=== PATIENT | male | born 1975 | race Caucasian/White ===

== ENCOUNTER 2017-10-08 10:58 | Inpatient (IN) | payer OTHER ==
--- NOTE | 2017-10-08 13:08 | HP ---
COWS - Scale Resting Pulse: 1= [place] 81-100 Sweatin=Flushed/Facial Moisture Restless Observation: 3= Extraneous Movement Pupil Size: 2= Moderately Dilated Bone or Joint Aches: 2= Severe Diffuse Aches Runny Nose/ Eye Tearin= Runny Nose/Eyes GI Upset > 30mins: 3= Vomiting/Diarrhea Tremor Observation: 2= Slight Tremor Visible Yawning Observation: 2= >3x During Session Anxiety or Irritability: 2=Irritable/Anxious Goose Flesh Skin: 0=Smooth Skin COWS Score: 21 Admission ROS BHS - HPI Chief Complaint: i need help to stop using heroin Allergies/Adverse Reactions: Allergies Allergy/AdvReac Type Severity Reaction Status Date / Time No Known Allergies Allergy Verified 10/08/17 13:03 History of Present Illness: this 42 years old male with heroin and marijuana dependence,seeking detox,last detox 3years ago [place] nicotine dependence longest period of sobriety 10 months weight loss hypercholesterolemia - Ebola screening Have you traveled outside of the country in the last 21 days: No Have you had contact with anyone from an Ebola affected area: No Have you been sick,other than usual withdrawal symptoms: No Do you have a fever: No - Review of Systems Constitutional: Chills, Diaphoresis, Loss of Appetite, Malaise, Night Sweats, Changes in sleep, Weakness, Unintentional Wgt. Loss EENT: reports: Hearing Loss, Nose Congestion Respiratory: reports: No Symptoms reported Cardiac: reports: Palpitations GI: reports: Diarrhea, Nausea, Poor Fluid Intake, Vomiting : reports: No Symptoms Reported, Lesions Musculoskeletal: reports: No Symptoms Reported, Joint Pain, Muscle Pain Integumentary: reports: Dryness Neuro: reports: Headache, Tremors Endocrine: reports: No Symptoms Reported Hematology: reports: No Symptoms Reported Psychiatric: reports: Anxious (insomnia), Depressed Patient History - Patient Medical History Hx Anemia: No Hx Asthma: No Hx Chronic Obstructive Pulmonary Disease (COPD): No Hx Cancer: No Hx Cardiac Disorders: No Hx Congestive Heart Failure: No Hx Hypertension: No Hx Hypercholesterolemia: Yes (no med) Hx Pacemaker: No HX Cerebrovascular Accident: No Hx Seizures: No Hx Dementia: No Hx Diabetes: No Hx Gastrointestinal Disorders: No Hx Liver Disease: No Hx Genitourinary Disorders: No Hx Sexually Transmitted Disorders: No Hx Renal Disease (ESRD): No Hx Thyroid Disease: No Hx Human Immunodeficiency Virus (HIV): No (negative 2017) Hx Hepatitis C: No Hx Depression: No Hx Suicide Attempt: No Hx Bipolar Disorder: No Hx Schizophrenia: No Other Medical History: insomnia,no sucidal,no homicidal - Patient Surgical History Past Surgical History: No - PPD History Previous Implant?: Yes Implanted On Prior [facility] Admission?: No PPD to be Administered?: Yes - Smoking Cessation Smoking history: Current every day smoker Have you smoked in the past 12 months: Yes Aproximately how many cigarettes per day: 20 Hx Chewing Tobacco Use: No Initiated information on smoking cessation: Yes 'Breaking Loose' booklet given: 10/09/17 - Substance & Tx. History Hx Alcohol Use: No Hx Substance Use: Yes Substance Use Type: Heroin, Marijuana Hx Substance Use Treatment: Yes ([facility]) - Substances Abused Heroin Route: Injection Frequency: Daily Amount used: 10-20 BAGS Age of first use: 30 Date of Last Use: 10/07/17 Marijuana/Hashish Route: Smoking Frequency: Daily Amount used: 1 JOINT Age of first use: 14 Date of Last Use: 10/08/17 Family Disease History - Family Disease History Family History: Denies Admission Physical Exam S - Vital Signs Vital Signs: Vital Signs - 24 hr 10/08/17 12:36 Temperature 98 F Pulse Rate 83 Respiratory 20 Rate Blood Pressure 124/81 - Physical General Appearance: Yes: Moderate Distress, Tremorous, Irritable, Sweating, Anxious HEENTM: Yes: Normal ENT Inspection, TOM, Pharynx Normal Respiratory: Yes: Lungs Clear, Normal Breath Sounds, No Respiratory Distress Neck: Yes: Within Normal Limits, Supple, Trachea in good position Breast: Yes: Within Normal Limits Cardiology: Yes: Within Normal Limits, Regular Rhythm, Regular Rate, S1, S2 Abdominal: Yes: Within Normal Limits, Normal Bowel Sounds, Non Tender, Flat, Soft Genitourinary: Yes: Within Normal Limits Back: Yes: Within Normal Limits, Muscle Spasm Musculoskeletal: Yes: full range of Motion, Back pain, Joint Stiffness, Muscle Pain Extremities: Yes: Tremors, Inflammation Neurological: Yes: web weaver II-XII NML intact, Fully Oriented, Alert, Motor Strength 5/5 Integumentary: Yes: Dry, Track Finch (abscess both forearm) Lymphatic: Yes: Within Normal Limits - Diagnostic (1) Opioid dependence with withdrawal Current Visit: Yes Status: Acute (2) Cannabis dependence Current Visit: Yes Status: Acute (3) Abscess Current Visit: Yes Status: Acute (4) Anxiety and depression Current Visit: Yes Status: Acute (5) Nicotine dependence Current Visit: Yes Status: Acute Cleared for Admission [facility] - Detox or Rehab [facility] Level of Care: Medically Managed Detox Regimen/Protocol: Methadone [facility] Breath Alcohol Content Breath Alcohol Content: 0 Urine Drug Screen - Results Drug Screen Negative: No Urine Drug Screen Results: THC-Marijuana, OPI-Opiates
[2017-10-08] MEDS ORDERED: LOPERAMIDE HCL 2 MG CAPSULE PO PRN (13:18)
[2017-10-08] MEDS ORDERED: P-EPHED 60MG/TRIPROLIDI 2.5MG TABLET PO PRN (13:18)
[2017-10-08] MEDS ORDERED: MAG HYDROX/AL HYDROX/SIMETH 30 ML UNIT-DOSE CUP PO PRN (13:18)
[2017-10-08] MEDS ORDERED: MAGNESIUM HYDROX 2400MG/30ML ORAL SUSPENSION 30 ML CUP PO PRN (13:18)
[2017-10-08] MEDS ORDERED: NICOTINE POLACRILEX 2 MG GUM BUC PRN (13:18)
[2017-10-08] MEDS ORDERED: MAGNESIUM CITRATE 300 ML BOTTLE PO PRN (13:18)
[2017-10-08] MEDS ORDERED: MENTHOL/PHENOL 1 EACH UD MM PRN (13:18)
[2017-10-08] MEDS ORDERED: guaiFENesin/D-METHORPHAN HB 10 ML UNIT-DOSE CUPS PO PRN (13:18)
[2017-10-08] MEDS ORDERED: ACETAMINOPHEN 325 MG TABLET (FP) PO PRN (13:18)
[2017-10-08] MEDS ORDERED: METHADONE HCL 10 MG TABLET (FOR DETOX USE ONLY) PO ONE ×2 (14:10→23:00)
[2017-10-08] MEDS: NICOTINE 21 MG/24 HOURS TOPICAL PATCH TD SCH (15:25)
[2017-10-08] MEDS: diazePAM 5 MG TABLET PO PRN ×2 (15:25→22:13)
[2017-10-08] MEDS: cloNIDine HCL 0.1 MG TABLET PO SCH ×2 (15:25→22:13)
[2017-10-08 16:17] VITALS: BMI 29.5
[2017-10-08 17:00] LABS: URINE APPEARANCE CLEAR; URINE BILIRUBIN NEGATIVE (NEGATIVE); URINE BLOOD NEGATIVE (NEGATIVE); URINE COLOR YELLOW; URINE GLUCOSE (UA) NEGATIVE (NEGATIVE); URINE KETONE NEGATIVE (NEGATIVE); URINE LEUK ESTERASE NEGATIVE (NEGATIVE); URINE NITRITE NEGATIVE (NEGATIVE); URINE PROTEIN NEGATIVE (NEGATIVE); URINE UROBILINOGEN NEGATIVE mg/dL (0.2-1.0)
--- NOTE | 2017-10-08 17:45 | PN ---
S Progress Note Note: Psychiatric nurse practitioner: Correctional Maintenance Technician approached patient for psychiatric consultation. Pt. refused.
[2017-10-08] MEDS: CEPHALEXIN MONOHYDRATE 500 MG CAPSULE (UD) PO SCH (18:02)
[2017-10-08] MEDS: CYCLOBENZAPRINE HCL 10 MG TABLET (FP) PO PRN (22:13)
[2017-10-08] MEDS: THIAMINE HCL 100 MG TABLET (FP) PO SCH (22:13)
[2017-10-09] MEDS: CEPHALEXIN MONOHYDRATE 500 MG CAPSULE (UD) PO SCH ×5 (00:05→23:48)
[2017-10-09] MEDS: diazePAM 5 MG TABLET PO PRN ×4 (05:54→22:36)
[2017-10-09] MEDS: CYCLOBENZAPRINE HCL 10 MG TABLET (FP) PO PRN (05:54)
[2017-10-09] MEDS ORDERED: METHADONE HCL 10 MG TABLET (FOR DETOX USE ONLY) PO ONE (10:00)
[2017-10-09] MEDS: PRENATAL VITAMINS W/ FOLIC ACID TABLET (FP) PO SCH (10:15)
[2017-10-09] MEDS: NICOTINE 21 MG/24 HOURS TOPICAL PATCH TD SCH (10:15)
[2017-10-09] MEDS: cloNIDine HCL 0.1 MG TABLET PO SCH ×2 (10:17→22:35)
--- NOTE | 2017-10-09 11:12 | PN ---
BHS COWS - Scale Resting Pulse: 1= [place] 81-100 Sweatin= Chills/Flushing Restless Observation: 3= Extraneous Movement Pupil Size: 1= Pupils >than Normal Bone or Joint Aches: 2= Severe Diffuse Aches Runny Nose/ Eye Tearin= Runny Nose/Eyes GI Upset > 30mins: 3= Vomiting/Diarrhea Tremor Observation of Outstretched Hands: 2= Slight Tremor Visible Yawning Observation: 1= 1-2x During Session Anxiety or Irritability: 2=Irritable/Anxious Goose Flesh Skin: 0=Smooth Skin COWS Score: 18 BHS Progress Note (SOAP) Subjective: ALERT,IRRITABLE,ANXIOUS,INTERRUPTED SLEEP,TREMOR,PAIN IN THE BODY,JOINT AND BACK Objective: 10/09/17 11:10 Vital Signs Temperature 97.7 F 10/09/17 10:14 Pulse Rate 85 10/09/17 10:14 Respiratory Rate 18 10/09/17 10:14 Blood Pressure 141/86 10/09/17 10:14 O2 Sat by Pulse Oximetry (%) EKG NSR NO CHEST PAIN,NO SOB,NO DIZZINESS 10/09/17 11:11 Laboratory Last Values Urine Color Yellow 10/08/17 14:40 Urine Appearance Clear 10/08/17 14:40 Urine pH 5.0 (5.0-8.0) 10/08/17 14:40 Ur Specific [place] 1.019 (1.001-1.035) 10/08/17 14:40 Urine Protein Negative (NEGATIVE) 10/08/17 14:40 Urine Glucose (UA) Negative (NEGATIVE) 10/08/17 14:40 Urine Ketones Negative (NEGATIVE) 10/08/17 14:40 Urine Blood Negative (NEGATIVE) 10/08/17 14:40 Urine Nitrite Negative (NEGATIVE) 10/08/17 14:40 Urine Bilirubin Negative (NEGATIVE) 10/08/17 14:40 Urine Urobilinogen Negative mg/dL (0.2-1.0) 10/08/17 14:40 Ur Leukocyte Esterase Negative (NEGATIVE) 10/08/17 14:40 10/09/17 11:12 LABS PENDING Assessment: 10/09/17 11:12 WITHDRAWAL SYMPTOM Plan: CONTINUE DETOX
--- NOTE | 2017-10-09 13:38 | CONSULT ---
[facility] Psychiatric Consult - Data Date of interview: 10/09/17 Admission source: [facility] Identifying data: Patient approached at bedside for psychiatric interview.Mr Thapa REFUSED.Nursing staff is made aware.
--- NOTE | 2017-10-09 13:40 | EKG ---
Test Reason : Blood Pressure : / mmHG Vent. Rate : 069 BPM Atrial Rate : 069 BPM P-R Int : 134 ms QRS Dur : 122 ms QT Int : 396 ms P-R-T Axes : 060 036 022 degrees QTc Int : 424 ms NORMAL SINUS RHYTHM RIGHT BUNDLE BRANCH BLOCK ABNORMAL ECG NO PREVIOUS ECGS AVAILABLE Confirmed by TASHA AWAD MD ([id number]) on 10/09/2017 1:39:45 PM Referred By: Confirmed By:TASHA AWAD MD
[2017-10-09] MEDS: THIAMINE HCL 100 MG TABLET (FP) PO SCH (22:35)
[2017-10-10] MEDS: CEPHALEXIN MONOHYDRATE 500 MG CAPSULE (UD) PO SCH ×4 (07:00→23:34)
[2017-10-10] MEDS ORDERED: METHADONE HCL 5 MG TABLET (FOR DETOX USE ONLY) PO ONE (10:00)
[2017-10-10] MEDS: cloNIDine HCL 0.1 MG TABLET PO SCH ×2 (10:39→22:34)
[2017-10-10] MEDS: PRENATAL VITAMINS W/ FOLIC ACID TABLET (FP) PO SCH (10:39)
[2017-10-10] MEDS: NICOTINE 21 MG/24 HOURS TOPICAL PATCH TD SCH (10:39)
[2017-10-10] MEDS: diazePAM 5 MG TABLET PO PRN ×3 (10:39→22:34)
--- NOTE | 2017-10-10 11:34 | PN ---
BHS COWS - Scale Resting Pulse: 1= [place] 81-100 Sweatin= Chills/Flushing Restless Observation: 1= Difficult to Sit Still Pupil Size: 0= Normal to Room Light Bone or Joint Aches: 2= Severe Diffuse Aches Runny Nose/ Eye Tearin= Nasal Congestion GI Upset > 30mins: 1= Stomach Cramp Tremor Observation of Outstretched Hands: 1= Tremor [place], Not Seen Yawning Observation: 2= >3x During Session Anxiety or Irritability: 1=Feels Anxious/Irritable Goose Flesh Skin: 0=Smooth Skin COWS Score: 11 BHS Progress Note (SOAP) Subjective: restlessness sweating agitation patient agrees to have blood work done tomorrow morning Objective: 10/10/17 11:32 Vital Signs Temperature 96.6 F L 10/10/17 10:00 Pulse Rate 84 10/10/17 10:00 Respiratory Rate 20 10/10/17 10:00 Blood Pressure 117/84 10/10/17 10:00 O2 Sat by Pulse Oximetry (%) Laboratory Last Values Urine Color Yellow 10/08/17 14:40 Urine Appearance Clear 10/08/17 14:40 Urine pH 5.0 (5.0-8.0) 10/08/17 14:40 Ur Specific [place] 1.019 (1.001-1.035) 10/08/17 14:40 Urine Protein Negative (NEGATIVE) 10/08/17 14:40 Urine Glucose (UA) Negative (NEGATIVE) 10/08/17 14:40 Urine Ketones Negative (NEGATIVE) 10/08/17 14:40 Urine Blood Negative (NEGATIVE) 10/08/17 14:40 Urine Nitrite Negative (NEGATIVE) 10/08/17 14:40 Urine Bilirubin Negative (NEGATIVE) 10/08/17 14:40 Urine Urobilinogen Negative mg/dL (0.2-1.0) 10/08/17 14:40 Ur Leukocyte Esterase Negative (NEGATIVE) 10/08/17 14:40 lab noted Assessment: 10/10/17 11:33 withdrawal sx +PPD Plan: continue detox chest x ray
[2017-10-10] MEDS: CYCLOBENZAPRINE HCL 10 MG TABLET (FP) PO PRN (17:38)
[2017-10-10] MEDS: THIAMINE HCL 100 MG TABLET (FP) PO SCH (22:34)
[2017-10-11] MEDS: CEPHALEXIN MONOHYDRATE 500 MG CAPSULE (UD) PO SCH ×3 (06:59→18:36)
[2017-10-11] MEDS: diazePAM 5 MG TABLET PO PRN ×2 (07:00→11:04)
[2017-10-11] MEDS ORDERED: METHADONE HCL 5 MG TABLET (FOR DETOX USE ONLY) PO ONE (10:00)
[2017-10-11] MEDS: PRENATAL VITAMINS W/ FOLIC ACID TABLET (FP) PO SCH (10:12)
[2017-10-11] MEDS: cloNIDine HCL 0.1 MG TABLET PO SCH ×2 (10:13→22:19)
[2017-10-11] MEDS: NICOTINE 21 MG/24 HOURS TOPICAL PATCH TD SCH (10:14)
--- NOTE | 2017-10-11 10:16 | PN ---
BHS Progress Note (SOAP) Subjective: ALERT,IRRITABLE,ANXIOUS,INTERRUPTED SLEEP,TREMOR,PAIN IN THE BODY AND BACK Objective: 10/11/17 10:15 Vital Signs Temperature 97.5 F L 10/11/17 06:06 Pulse Rate 63 10/11/17 06:06 Respiratory Rate 16 10/11/17 06:06 Blood Pressure 126/60 10/11/17 06:06 O2 Sat by Pulse Oximetry (%) PATIENT REFUSED BLOOD TESTS Assessment: 10/11/17 10:15 WITHDRAWAL SYMPTOM Plan: CONTINUE DETOX
[2017-10-11] MEDS: CYCLOBENZAPRINE HCL 10 MG TABLET (FP) PO PRN ×2 (10:41→18:54)
[2017-10-11] MEDS ORDERED: LIDOCAINE 5% TOPICAL PATCH TP ONE (11:00)
[2017-10-11] MEDS: hydrOXYzine PAMOATE 50 MG CAPSULE (FP) PO PRN ×2 (18:36→22:20)
[2017-10-11] MEDS: IBUPROFEN 400 MG TABLET (FP) PO PRN (18:54)
[2017-10-11] MEDS: THIAMINE HCL 100 MG TABLET (FP) PO SCH (22:19)
[2017-10-11] MEDS: LIDOCAINE PATCH REMOVAL MC SCH (22:54)
[2017-10-12] MEDS: CEPHALEXIN MONOHYDRATE 500 MG CAPSULE (UD) PO SCH ×5 (00:08→23:52)
[2017-10-12] MEDS: CYCLOBENZAPRINE HCL 10 MG TABLET (FP) PO PRN ×2 (06:10→22:22)
[2017-10-12] MEDS: IBUPROFEN 400 MG TABLET (FP) PO PRN ×3 (06:10→17:57)
[2017-10-12] MEDS: hydrOXYzine PAMOATE 50 MG CAPSULE (FP) PO PRN ×4 (06:10→22:23)
[2017-10-12] MEDS ORDERED: METHADONE HCL 10 MG TABLET (FOR DETOX USE ONLY) PO ONE (10:00)
--- NOTE | 2017-10-12 10:28 | PN ---
BHS Progress Note (SOAP) Subjective: ALERT,IRRITABLE,ANXIOUS,INTERRUPTED SLEEP,PAIN IN THE BODY Objective: 10/12/17 10:27 Vital Signs Temperature 97.5 F L 10/12/17 10:00 Pulse Rate 80 10/12/17 10:00 Respiratory Rate 18 10/12/17 10:00 Blood Pressure 117/67 10/12/17 10:00 O2 Sat by Pulse Oximetry (%) Assessment: 10/12/17 10:27 WITHDRAWAL SYMPTOM Plan: CONTINUE DETOX,DISCHARGE IN AM
[2017-10-12] MEDS: NICOTINE 21 MG/24 HOURS TOPICAL PATCH TD SCH (10:46)
[2017-10-12] MEDS: LIDOCAINE 5% TOPICAL PATCH TP SCH (10:46)
[2017-10-12] MEDS: cloNIDine HCL 0.1 MG TABLET PO SCH ×2 (10:46→22:22)
[2017-10-12] MEDS: PRENATAL VITAMINS W/ FOLIC ACID TABLET (FP) PO SCH (10:46)
[2017-10-12] MEDS: THIAMINE HCL 100 MG TABLET (FP) PO SCH (22:23)
[2017-10-12] MEDS: LIDOCAINE PATCH REMOVAL MC SCH (22:24)
[2017-10-13] MEDS: CEPHALEXIN MONOHYDRATE 500 MG CAPSULE (UD) PO SCH (05:29)
[2017-10-13] MEDS: hydrOXYzine PAMOATE 50 MG CAPSULE (FP) PO PRN (05:31)
[2017-10-13] MEDS ORDERED: METHADONE HCL 5 MG TABLET (FOR DETOX USE ONLY) PO ONE (06:00)
[2017-10-13 06:26] VITALS: BP 114/53; PULSE 67; TEMP 97.3
--- NOTE | 2017-10-13 08:40 | DS ---
[facility] Detox Discharge Summary Admission Date: 10/08/17 Discharge Date: 10/13/17 - History Present History: Cannabis Dependence, Opioid Dependence Additional Comments: follow up with after care program as arrangement Pertinent Past History: nicotine dependence abscess both forearm anxiety and depression - Physical Exam Results Vital Signs: Vital Signs Temperature 97.3 F L 10/13/17 06:25 Pulse Rate 67 10/13/17 06:25 Respiratory Rate 16 10/13/17 06:25 Blood Pressure 114/53 10/13/17 06:25 O2 Sat by Pulse Oximetry (%) Pertinent Admission Physical Exam Findings: withdrawal symptom - Treatment Hospital Course: Detox Protocol Followed, Detoxed Safely, Responded well, Discharged Condition Good Patient has Accepted a Rehab Referral to: declined - Medication Discharge Medications: Ambulatory Orders NK [No Known Home Medication] 10/08/17 - Diagnosis (1) Opioid dependence with withdrawal Current Visit: Yes Status: Acute (2) Cannabis dependence Current Visit: Yes Status: Acute (3) Abscess Current Visit: Yes Status: Acute (4) Anxiety and depression Current Visit: Yes Status: Acute (5) Nicotine dependence Current Visit: Yes Status: Acute - AMA Did Patient Leave Against Medical Advice: No
[2017-10-13] MEDS: PRENATAL VITAMINS W/ FOLIC ACID TABLET (FP) PO SCH (09:04)
[2017-10-13] MEDS: cloNIDine HCL 0.1 MG TABLET PO SCH (09:05)
[2017-10-13] MEDS: LIDOCAINE 5% TOPICAL PATCH TP SCH (09:05)
== END 2017-10-13 09:20 | disposition home or self-care (01) | DRG 773 ==
LOC: YASAS 10:58 → Y6N 13:21
PROVIDERS: ADMIT Internal Medicine; ATTEND Internal Medicine
PROC: HZ2ZZZZ Detoxification Services for Substance Abuse Treatment (ICD-10-PCS; principal; 2017-10-08)
DX: F11.23 Opioid dependence with withdrawal (principal); F12.20 Cannabis dependence, uncomplicated; F17.210 Nicotine dependence, cigarettes, uncomplicated; F41.8 Other specified anxiety disorders; L03.114 Cellulitis of left upper limb; L03.113 Cellulitis of right upper limb
CPT/HCPCS: 81003; 93005; 93010

== ENCOUNTER 2017-11-16 08:37 | Inpatient (IN) | payer OTHER ==
[2017-11-16 10:14] VITALS: BMI 29.9
--- NOTE | 2017-11-16 11:33 | HP ---
Admission [facility] Chief Complaint: I know I need help so I am here for further treatment. Allergies/Adverse Reactions: Allergies Allergy/AdvReac Type Severity Reaction Status Date / Time No Known Allergies Allergy Verified 11/16/17 11:23 History of Present Illness: Pt is a 42yr old male with a history of heroin dependence seeking treatment however pt is negative for heroin but has agreed to go to rehab for further treatment. Pt is not in any withdrawals. Exam Limitations: No Limitations - Ebola screening Have you traveled outside of the country in the last 21 days: No (N) Have you had contact with anyone from an Ebola affected area: No Have you been sick,other than usual withdrawal symptoms: No Do you have a fever: No - Review of Systems Constitutional: No Symptoms Reported EENT: reports: No Symptoms Reported Respiratory: reports: No Symptoms reported Cardiac: reports: Syncope GI: reports: Constipated, Nausea, Abdominal cramping : reports: No Symptoms Reported Musculoskeletal: reports: Back Pain Integumentary: reports: No Symptoms Reported Neuro: reports: Tingling, Tremors Endocrine: reports: Excessive Sweating, Flushing, Intolerance to Cold, Intolerance to Heat Hematology: reports: No Symptoms Reported Psychiatric: reports: Judgement Intact, Mood/Affect Appropiate, Orientated x3, Agitated, Anxious Other Systems: Reviewed and Negative Patient History - Patient Medical History Hx Anemia: No Hx Asthma: No Hx Chronic Obstructive Pulmonary Disease (COPD): No Hx Cancer: No Hx Cardiac Disorders: No Hx Congestive Heart Failure: No Hx Hypertension: No Hx Hypercholesterolemia: Yes (no med) Hx Pacemaker: No HX Cerebrovascular Accident: No Hx Seizures: No Hx Dementia: No Hx Diabetes: No Hx Gastrointestinal Disorders: No Hx Liver Disease: No Hx Genitourinary Disorders: No Hx Sexually Transmitted Disorders: No Hx Renal Disease (ESRD): No Hx Thyroid Disease: No Hx Human Immunodeficiency Virus (HIV): No (negative 2017) Hx Hepatitis C: No (negative) Hx Depression: No Hx Suicide Attempt: No (denies) Hx Bipolar Disorder: No Hx Schizophrenia: No Other Medical History: anxiety - Patient Surgical History Past Surgical History: No - PPD History Previous Implant?: Yes Date: 10/10/17 PPD to be Administered?: No - Reproductive History Patient is a Female of Child Bearing Age (11 -55 yrs old): No - Smoking Cessation Smoking history: Current every day smoker Have you smoked in the past 12 months: Yes Aproximately how many cigarettes per day: 20 Hx Chewing Tobacco Use: No Initiated information on smoking cessation: Yes 'Breaking Loose' booklet given: 11/16/17 - Substance & Tx. History Hx Alcohol Use: No Hx Substance Use: Yes Hx Substance Use Treatment: Yes ([facility] 1 month ago) Family Disease History - Family Disease History Family Disease History: Heart Disease: Father, [place]: Mother (), Brother ( ) Admission Physical Exam [facility] - Vital Signs Vital Signs: Vital Signs - 24 hr 11/16/17 10:11 Temperature 97.5 F L Pulse Rate 110 H Respiratory 20 Rate Blood Pressure 127/76 - Physical General Appearance: Yes: Within Normal Limits, Appropriately Dressed, Moderate Distress, Sweating, Anxious HEENTM: Yes: Normal Voice Respiratory: Yes: Lungs Clear, Normal Breath Sounds, No Respiratory Distress Neck: Yes: No masses,lesions,Nodules Breast: Yes: Within Normal Limits Cardiology: Yes: Regular Rhythm, Regular Rate, S1, S2 Abdominal: Yes: Normal Bowel Sounds Genitourinary: Yes: Within Normal Limits Back: Yes: Normal Inspection Musculoskeletal: Yes: full range of Motion Extremities: Yes: Normal Capillary Refill, Normal Inspection, Tremors Neurological: Yes: Fully Oriented, Alert, Normal Response Integumentary: Yes: Normal Color, Track Finch Lymphatic: Yes: Within Normal Limits - Diagnostic (1) Anxiety and depression Current Visit: Yes Status: Chronic (2) Cannabis dependence Current Visit: Yes Status: Chronic (3) Nicotine dependence Current Visit: Yes Status: Acute Qualifiers: Nicotine product type: cigarettes Substance use status: uncomplicated Qualified Code(s): F17.210 - Nicotine dependence, cigarettes, uncomplicated Cleared for Admission [facility] - Detox or Rehab [facility] Level of Care: Medically Managed [facility] Breath Alcohol Content Breath Alcohol Content: 0 Urine Drug Screen - Results Drug Screen Negative: No Urine Drug Screen Results: THC-Marijuana, BZO-Benzodiazepines Inpatient Rehab Admission - Initial Determination Free of communicable disease: Yes - Rehab Admission Criteria Previous failed treatment: Yes Poor recovery environment: Yes Lacks judgement: Yes
[2017-11-16] MEDS ORDERED: P-EPHED 60MG/TRIPROLIDI 2.5MG TABLET PO PRN (11:47)
[2017-11-16] MEDS ORDERED: MAGNESIUM HYDROX 2400MG/30ML ORAL SUSPENSION 30 ML CUP PO PRN (11:47)
[2017-11-16] MEDS ORDERED: guaiFENesin/D-METHORPHAN HB 10 ML UNIT-DOSE CUPS PO PRN (11:47)
[2017-11-16] MEDS ORDERED: ACETAMINOPHEN 325 MG TABLET (FP) PO PRN (11:47)
[2017-11-16] MEDS ORDERED: MAG HYDROX/AL HYDROX/SIMETH 30 ML UNIT-DOSE CUP PO PRN (11:47)
[2017-11-16] MEDS ORDERED: MAGNESIUM CITRATE 300 ML BOTTLE PO PRN (11:47)
[2017-11-16] MEDS ORDERED: LOPERAMIDE HCL 2 MG CAPSULE PO PRN (11:47)
[2017-11-16] MEDS ORDERED: IBUPROFEN 400 MG TABLET (FP) PO PRN (11:47)
[2017-11-16] MEDS ORDERED: MENTHOL/PHENOL 1 EACH UD MM PRN (11:47)
[2017-11-16] MEDS ORDERED: NICOTINE POLACRILEX 4 MG GUM BUC PRN (11:47)
[2017-11-16] MEDS ORDERED: CYCLOBENZAPRINE HCL 10 MG TABLET (FP) PO PRN (11:54)
[2017-11-16 14:41] LABS: MCH 28.2 pg (25.7-33.7); MCHC 33.3 g/dl (32.0-35.9); MEAN CELL VOLUME 84.8 fl (80-96); MEAN PLT VOLUME 8.5 fl (7.5-11.1); PLATELET COUNT 295 K/MM3 (134-434); RBC 5.31 M/mm3 (4.00-5.60); RDW 14.7 % (11.9-15.9); WHITE BLOOD COUNT 20.6 K/mm3 (4.0-10.0)
[2017-11-16 14:59] LABS: CHLORIDE 99 mmol/L (98-107); SODIUM 133 mmol/L (136-145)
[2017-11-16 15:14] LABS: ALK PHOS 76 U/L (45-117); ANION GAP 10 (8-16); BILIRUBIN,TOTAL 1.6 mg/dL (0.2-1.0); BLOOD UREA NITROGEN 28 mg/dL (7-18); CALCIUM 8.6 mg/dL (8.5-10.1); CO2 24 mmol/L (21-32); CREATININE 2.3 mg/dL (0.7-1.3); GLUCOSE,RANDOM 128 mg/dL (74-106); SGOT/AST 15 U/L (15-37); SGPT/ALT 23 U/L (12-78); TOT PROT 7.2 g/dl (6.4-8.2)
--- NOTE | 2017-11-16 15:35 | PN ---
[facility] Progress Note Note: Laboratory Tests 11/16/17 11/16/17 12:00 12:00 WBC 20.6 H RBC 5.31 Hgb 15.0 Hct 45.0 MCV 84.8 MCH 28.2 MCHC 33.3 RDW 14.7 Plt Count 295 MPV 8.5 Sodium 133 L Potassium 4.0 Chloride 99 Carbon Dioxide 24 Anion Gap 10 BUN 28 H Creatinine 2.3 H Creat Clearance w eGFR 31.49 Random Glucose 128 H Calcium 8.6 Total Bilirubin 1.6 H AST 15 ALT 23 Alkaline Phosphatase 76 Total Protein 7.2 Albumin 4.0 RN phoned regarding pt current labs; 20.6 wbc and increased bun and creatine. pt appears asymptomatic. there are no previous labs to compare because pt refused labs on his previous admission. therefore will reorder labs for tomorrow.
[2017-11-16] MEDS: THIAMINE HCL 100 MG TABLET (FP) PO SCH (21:50)
[2017-11-16 23:42] LABS: URINE APPEARANCE SLCLOUDY; URINE BILIRUBIN NEGATIVE (NEGATIVE); URINE BLOOD NEGATIVE (NEGATIVE); URINE COLOR YELLOW; URINE GLUCOSE (UA) NEGATIVE (NEGATIVE); URINE KETONE NEGATIVE (NEGATIVE); URINE LEUK ESTERASE TRACE (NEGATIVE); URINE NITRITE NEGATIVE (NEGATIVE); URINE PROTEIN 2+ (NEGATIVE); URINE UROBILINOGEN NEGATIVE mg/dL (0.2-1.0)
[2017-11-16 23:45] LABS: EPI CELLS RARE /HPF (FEW); URINE BACTERIA FEW /hpf (NONE SEEN); URINE HYALINE CAST 17 /lpf; URINE MUCUS RARE
[2017-11-17 09:59] LABS: BASO % 0.6 % (0-2.0); EOS % 1.4 % (0-4.5); HEMATOCRIT 43.8 % (35.4-49); HEMOGLOBIN 14.7 GM/dL (11.7-16.9); LYMPH % 27.2 % (8-40); MCH 28.2 pg (25.7-33.7); MCHC 33.5 g/dl (32.0-35.9); MEAN CELL VOLUME 84.2 fl (80-96); MEAN PLT VOLUME 8.3 fl (7.5-11.1); MONO % 9.3 % (3.8-10.2); NEUT % 61.5 % (42.8-82.8); PLATELET COUNT 254 K/MM3 (134-434); RDW 14.9 % (11.9-15.9); WHITE BLOOD COUNT 9.6 K/mm3 (4.0-10.0)
[2017-11-17 10:35] LABS: CHLORIDE 106 mmol/L (98-107); POTASSIUM 4.2 mmol/L (3.5-5.1); SGOT/AST 12 U/L (15-37); SGPT/ALT 18 U/L (12-78); SODIUM 138 mmol/L (136-145)
[2017-11-17 10:39] LABS: ALBUMIN 3.5 g/dl (3.4-5.0); ALK PHOS 64 U/L (45-117); ANION GAP 6 (8-16); BILIRUBIN,TOTAL 0.6 mg/dL (0.2-1.0); BLOOD UREA NITROGEN 18 mg/dL (7-18); CALCIUM 8.5 mg/dL (8.5-10.1); CO2 26 mmol/L (21-32); CREATININE 1.1 mg/dL (0.7-1.3); GLUCOSE,RANDOM 113 mg/dL (74-106); TOT PROT 6.5 g/dl (6.4-8.2)
[2017-11-17] MEDS: PRENATAL VITAMINS W/ FOLIC ACID TABLET (FP) PO SCH (11:00)
[2017-11-17] MEDS: NICOTINE 21 MG/24 HOURS TOPICAL PATCH TD SCH (11:00)
--- NOTE | 2017-11-17 11:01 | EKG ---
Test Reason : Blood Pressure : / mmHG Vent. Rate : 075 BPM Atrial Rate : 075 BPM P-R Int : 142 ms QRS Dur : 126 ms QT Int : 400 ms P-R-T Axes : 068 015 030 degrees QTc Int : 446 ms NORMAL SINUS RHYTHM RIGHT BUNDLE BRANCH BLOCK ABNORMAL ECG WHEN COMPARED WITH ECG OF 08-OCT-2017 15:13, NO SIGNIFICANT CHANGE WAS FOUND Confirmed by RENE MOSQUERA MD ([id number]) on 11/17/2017 11:00:55 AM Referred By: Confirmed By:RENE MOSQUERA MD
--- NOTE | 2017-11-17 13:02 | PN ---
S Progress Note Note: The story writer twice went to the patient room and asked to come to the office for evaluation, patient was in bed covered by blanket reports he does not feel well and asked to see him tomorrow.
[2017-11-17] MEDS: THIAMINE HCL 100 MG TABLET (FP) PO SCH (21:38)
[2017-11-18] MEDS ORDERED: ONDANSETRON *ODT* 4 MG TABLET SL PRN (09:39)
--- NOTE | 2017-11-18 09:42 | PN ---
BHS Progress Note (SOAP) Subjective: pateitn c/o protoracted opioid withdrawal sx , was not detoxed on admission as u tox - issac opioids, now yawning, eyes, tearing, insomnia, anxiety, loss of appeite, requesting to start Mat w suboxone Objective: 11/18/17 09:40 Vital Signs - 24 hr 11/18/17 11/18/17 11/18/17 00:30 03:30 07:10 Temperature 98.2 F Pulse Rate 65 Respiratory 18 18 16 Rate Blood Pressure 148/97 Laboratory Tests 11/16/17 11/16/17 11/16/17 12:00 12:00 12:00 WBC 20.6 H RBC 5.31 Hgb 15.0 Hct 45.0 MCV 84.8 MCH 28.2 MCHC 33.3 RDW 14.7 Plt Count 295 MPV 8.5 Total Counted 100 Neutrophils % Neutrophils % (Manual) 74.0 Lymphocytes % Lymphocytes % (Manual) 16.0 Monocytes % Monocytes % (Manual) 7 Eosinophils % Eosinophils % (Manual) 1.0 Basophils % Sodium 133 L Potassium 4.0 Chloride 99 Carbon Dioxide 24 Anion Gap 10 BUN 28 H Creatinine 2.3 H Creat Clearance w eGFR 31.49 Random Glucose 128 H Calcium 8.6 Total Bilirubin 1.6 H AST 15 ALT 23 Alkaline Phosphatase 76 Total Protein 7.2 Albumin 4.0 Urine Color Urine Appearance Urine pH Ur Specific [place] Urine Protein Urine Glucose (UA) Urine Ketones Urine Blood Urine Nitrite Urine Bilirubin Urine Urobilinogen Ur Leukocyte Esterase Urine WBC (Auto) Urine RBC (Auto) Ur Epithelial Cells Urine Bacteria Hyaline Casts Urine Mucus RPR Titer Nonreactive 11/16/17 11/17/17 11/17/17 20:21 07:30 07:30 WBC 9.6 D RBC 5.20 Hgb 14.7 Hct 43.8 MCV 84.2 MCH 28.2 MCHC 33.5 RDW 14.9 Plt Count 254 MPV 8.3 Total Counted Neutrophils % 61.5 Neutrophils % (Manual) Lymphocytes % 27.2 Lymphocytes % (Manual) Monocytes % 9.3 Monocytes % (Manual) Eosinophils % 1.4 Eosinophils % (Manual) Basophils % 0.6 Sodium 138 Potassium 4.2 Chloride 106 Carbon Dioxide 26 Anion Gap 6 L BUN 18 D Creatinine 1.1 D Creat Clearance w eGFR > 60 Random Glucose 113 H Calcium 8.5 Total Bilirubin 0.6 D AST 12 L ALT 18 D Alkaline Phosphatase 64 Total Protein 6.5 Albumin 3.5 Urine Color Yellow Urine Appearance Slcloudy Urine pH 5.0 Ur Specific [place] 1.023 Urine Protein 2+ H Urine Glucose (UA) Negative Urine Ketones Negative Urine Blood Negative Urine Nitrite Negative Urine Bilirubin Negative Urine Urobilinogen Negative Ur Leukocyte Esterase Trace Urine WBC (Auto) 8 Urine RBC (Auto) 3 Ur Epithelial Cells Rare Urine Bacteria Few Hyaline Casts 17 Urine Mucus Rare RPR Titer yawning, tearing, opioid withdrawal sx noted Assessment: 11/18/17 09:41 oud w withdrqwal sx - start mat w subxoen 2mg and symptomtic relief, when aftercare progrram idenitified and appt mad will titrate dose to effect to eliminate cravings. control bp
[2017-11-18] MEDS ORDERED: cloNIDine HCL 0.1 MG TABLET PO ONE (10:00)
[2017-11-18] MEDS: PANTOPRAZOLE 40 MG TABLET (FP) PO SCH (10:42)
[2017-11-18] MEDS: PRENATAL VITAMINS W/ FOLIC ACID TABLET (FP) PO SCH (10:42)
[2017-11-18] MEDS: NAPROXEN 500 MG TABLET (FP) PO SCH ×2 (10:42→21:55)
[2017-11-18] MEDS: BUPRENORPHINE/NALOXONE 2 MG/0.5 MG FILM PACKET SL SCH (10:42)
[2017-11-18] MEDS: cloNIDine HCL 0.1 MG TABLET PO SCH ×2 (10:43→21:55)
[2017-11-18] MEDS: NICOTINE 21 MG/24 HOURS TOPICAL PATCH TD SCH (10:43)
[2017-11-18] MEDS ORDERED: ONDANSETRON *ODT* 4 MG TABLET SL ONE (10:45)
[2017-11-18] MEDS: hydrOXYzine PAMOATE 50 MG CAPSULE (FP) PO PRN (10:51)
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
[2017-11-18] MEDS: GABAPENTIN 100 MG CAPSULE (FP) PO SCH ×2 (13:58→21:55)
[2017-11-18] MEDS: SUVOREXANT 10 MG TABLET PO SCH (21:55)
[2017-11-18] MEDS: THIAMINE HCL 100 MG TABLET (FP) PO SCH (21:55)
[2017-11-19] MEDS: GABAPENTIN 100 MG CAPSULE (FP) PO SCH ×3 (06:13→21:42)
[2017-11-19] MEDS: PRENATAL VITAMINS W/ FOLIC ACID TABLET (FP) PO SCH (10:21)
[2017-11-19] MEDS: cloNIDine HCL 0.1 MG TABLET PO SCH ×2 (10:21→21:42)
[2017-11-19] MEDS: BUPRENORPHINE/NALOXONE 2 MG/0.5 MG FILM PACKET SL SCH (10:21)
[2017-11-19] MEDS: PANTOPRAZOLE 40 MG TABLET (FP) PO SCH (10:21)
[2017-11-19] MEDS: NICOTINE 21 MG/24 HOURS TOPICAL PATCH TD SCH (10:21)
[2017-11-19] MEDS: hydrOXYzine PAMOATE 50 MG CAPSULE (FP) PO PRN (10:21)
[2017-11-19] MEDS: NAPROXEN 500 MG TABLET (FP) PO SCH ×2 (10:21→21:42)
[2017-11-19] MEDS: SUVOREXANT 10 MG TABLET PO SCH (21:42)
[2017-11-19] MEDS: THIAMINE HCL 100 MG TABLET (FP) PO SCH (21:42)
[2017-11-20] MEDS: GABAPENTIN 100 MG CAPSULE (FP) PO SCH ×3 (06:47→21:32)
[2017-11-20] MEDS: NAPROXEN 500 MG TABLET (FP) PO SCH ×2 (10:33→21:32)
[2017-11-20] MEDS: cloNIDine HCL 0.1 MG TABLET PO SCH ×2 (10:33→21:32)
[2017-11-20] MEDS: PANTOPRAZOLE 40 MG TABLET (FP) PO SCH (10:33)
[2017-11-20] MEDS: PRENATAL VITAMINS W/ FOLIC ACID TABLET (FP) PO SCH (10:34)
[2017-11-20] MEDS: NICOTINE 21 MG/24 HOURS TOPICAL PATCH TD SCH (10:34)
[2017-11-20] MEDS: BUPRENORPHINE/NALOXONE 2 MG/0.5 MG FILM PACKET SL SCH (10:35)
[2017-11-20] MEDS: hydrOXYzine PAMOATE 50 MG CAPSULE (FP) PO PRN (14:21)
[2017-11-20] MEDS: THIAMINE HCL 100 MG TABLET (FP) PO SCH (21:32)
[2017-11-20] MEDS: SUVOREXANT 10 MG TABLET PO SCH (21:32)
[2017-11-21] MEDS: GABAPENTIN 100 MG CAPSULE (FP) PO SCH ×3 (06:43→21:42)
[2017-11-21] MEDS: PANTOPRAZOLE 40 MG TABLET (FP) PO SCH (10:54)
[2017-11-21] MEDS: PRENATAL VITAMINS W/ FOLIC ACID TABLET (FP) PO SCH (10:54)
[2017-11-21] MEDS: cloNIDine HCL 0.1 MG TABLET PO SCH ×2 (10:54→21:42)
[2017-11-21] MEDS: NICOTINE 21 MG/24 HOURS TOPICAL PATCH TD SCH (10:54)
[2017-11-21] MEDS: BUPRENORPHINE/NALOXONE 2 MG/0.5 MG FILM PACKET SL SCH (10:54)
[2017-11-21] MEDS: NAPROXEN 500 MG TABLET (FP) PO SCH ×2 (10:54→21:42)
[2017-11-21] MEDS: SUVOREXANT 10 MG TABLET PO SCH (21:42)
[2017-11-21] MEDS: THIAMINE HCL 100 MG TABLET (FP) PO SCH (21:42)
[2017-11-21] MEDS: hydrOXYzine PAMOATE 50 MG CAPSULE (FP) PO PRN (21:43)
[2017-11-22] MEDS: GABAPENTIN 100 MG CAPSULE (FP) PO SCH ×3 (06:09→21:35)
[2017-11-22] MEDS: hydrOXYzine PAMOATE 50 MG CAPSULE (FP) PO PRN ×3 (10:19→21:37)
[2017-11-22] MEDS: cloNIDine HCL 0.1 MG TABLET PO SCH ×2 (10:19→21:36)
[2017-11-22] MEDS: PRENATAL VITAMINS W/ FOLIC ACID TABLET (FP) PO SCH (10:19)
[2017-11-22] MEDS: NAPROXEN 500 MG TABLET (FP) PO SCH ×2 (10:19→21:35)
[2017-11-22] MEDS: PANTOPRAZOLE 40 MG TABLET (FP) PO SCH (10:20)
[2017-11-22] MEDS: BUPRENORPHINE/NALOXONE 2 MG/0.5 MG FILM PACKET SL SCH (10:20)
[2017-11-22] MEDS: NICOTINE 21 MG/24 HOURS TOPICAL PATCH TD SCH (10:20)
[2017-11-22] MEDS: SUVOREXANT 10 MG TABLET PO SCH (21:35)
[2017-11-22] MEDS: THIAMINE HCL 100 MG TABLET (FP) PO SCH (21:36)
[2017-11-23] MEDS: GABAPENTIN 100 MG CAPSULE (FP) PO SCH ×3 (06:13→21:36)
[2017-11-23] MEDS: cloNIDine HCL 0.1 MG TABLET PO SCH ×2 (10:22→21:36)
[2017-11-23] MEDS: BUPRENORPHINE/NALOXONE 2 MG/0.5 MG FILM PACKET SL SCH (10:22)
[2017-11-23] MEDS: PRENATAL VITAMINS W/ FOLIC ACID TABLET (FP) PO SCH (10:22)
[2017-11-23] MEDS: PANTOPRAZOLE 40 MG TABLET (FP) PO SCH (10:22)
[2017-11-23] MEDS: NAPROXEN 500 MG TABLET (FP) PO SCH (10:22)
[2017-11-23] MEDS: NICOTINE 21 MG/24 HOURS TOPICAL PATCH TD SCH (10:23)
[2017-11-23] MEDS ORDERED: ONDANSETRON *ODT* 4 MG TABLET SL ONE (10:29)
[2017-11-23] MEDS ORDERED: ONDANSETRON *ODT* 4 MG TABLET SL PRN (10:30)
--- NOTE | 2017-11-23 10:37 | PN ---
[facility] Progress Note (SOAP) Subjective: still c/o protracted opioid withdrwal w depression , anxiety, nausea and insomnia does not want to increase dose or be on MAT Objective: 11/23/17 10:35 Vital Signs - 24 hr 11/22/17 11/23/17 11/23/17 21:16 00:30 03:30 Temperature Pulse Rate 69 Respiratory 18 18 Rate Blood Pressure 119/72 11/23/17 07:01 Temperature 97.6 F Pulse Rate 68 Respiratory 18 Rate Blood Pressure 145/81 Laboratory Tests 11/16/17 11/16/17 11/16/17 12:00 12:00 12:00 WBC 20.6 H RBC 5.31 Hgb 15.0 Hct 45.0 MCV 84.8 MCH 28.2 MCHC 33.3 RDW 14.7 Plt Count 295 MPV 8.5 Total Counted 100 Neutrophils % Neutrophils % (Manual) 74.0 Lymphocytes % Lymphocytes % (Manual) 16.0 Monocytes % Monocytes % (Manual) 7 Eosinophils % Eosinophils % (Manual) 1.0 Basophils % Sodium 133 L Potassium 4.0 Chloride 99 Carbon Dioxide 24 Anion Gap 10 BUN 28 H Creatinine 2.3 H Creat Clearance w eGFR 31.49 Random Glucose 128 H Calcium 8.6 Total Bilirubin 1.6 H AST 15 ALT 23 Alkaline Phosphatase 76 Total Protein 7.2 Albumin 4.0 Urine Color Urine Appearance Urine pH Ur Specific [place] Urine Protein Urine Glucose (UA) Urine Ketones Urine Blood Urine Nitrite Urine Bilirubin Urine Urobilinogen Ur Leukocyte Esterase Urine WBC (Auto) Urine RBC (Auto) Ur Epithelial Cells Urine Bacteria Hyaline Casts Urine Mucus RPR Titer Nonreactive 11/16/17 11/17/17 11/17/17 20:21 07:30 07:30 WBC 9.6 D RBC 5.20 Hgb 14.7 Hct 43.8 MCV 84.2 MCH 28.2 MCHC 33.5 RDW 14.9 Plt Count 254 MPV 8.3 Total Counted Neutrophils % 61.5 Neutrophils % (Manual) Lymphocytes % 27.2 Lymphocytes % (Manual) Monocytes % 9.3 Monocytes % (Manual) Eosinophils % 1.4 Eosinophils % (Manual) Basophils % 0.6 Sodium 138 Potassium 4.2 Chloride 106 Carbon Dioxide 26 Anion Gap 6 L BUN 18 D Creatinine 1.1 D Creat Clearance w eGFR > 60 Random Glucose 113 H Calcium 8.5 Total Bilirubin 0.6 D AST 12 L ALT 18 D Alkaline Phosphatase 64 Total Protein 6.5 Albumin 3.5 Urine Color Yellow Urine Appearance Slcloudy Urine pH 5.0 Ur Specific [place] 1.023 Urine Protein 2+ H Urine Glucose (UA) Negative Urine Ketones Negative Urine Blood Negative Urine Nitrite Negative Urine Bilirubin Negative Urine Urobilinogen Negative Ur Leukocyte Esterase Trace Urine WBC (Auto) 8 Urine RBC (Auto) 3 Ur Epithelial Cells Rare Urine Bacteria Few Hyaline Casts 17 Urine Mucus Rare RPR Titer labs reviewed Assessment: 11/23/17 10:36 oud - cont suboxoen 2mg daily, recommend mat to f/u New focus and adjust dose so it is adequate. d/c Naprosyn, zofran x1 dose and prn for nausea
--- NOTE | 2017-11-23 14:59 | PN ---
Psychiatric Progress Note Vital Signs: Vital Signs Period Temp Pulse Resp BP Sys/Degroot Pulse Ox Last 24 Hr 97.6 F 68-77 18-18 119-145/72-91 Date of Session: 11/23/17 Chief Complaint:: "not sleeping". HPI: Patient is adressing opioid, nicotine dependence comrobid AUDRA and PTSD. ROS: WNL Current Medications: Active Medications Generic Name Dose Route Start Last Admin Trade Name Freq PRN Reason Stop Dose Admin Acetaminophen 650 mg 11/16/17 11:47 Tylenol - PO Q4H PRN FEVER Al Hydroxide/Mg Hydroxide 30 ml 11/16/17 11:47 11/19/17 17:47 Mylanta Oral Suspension - PO 30 ml Q6H PRN Administration DYSPEPSIA Buprenorphine/Naloxone 1 each 11/18/17 10:00 11/23/17 10:22 Suboxone 2mg/0.5mg Sl Film - SL 1 each DAILY MILA Administration Clonidine 0.1 mg 11/18/17 10:00 11/23/17 10:22 Catapres - PO 0.1 mg BID MILA Administration Cyclobenzaprine HCl 10 mg 11/16/17 11:54 Flexeril - PO TID PRN MUSCLE SPASMS Eucalyptus/Menthol/Phenol/Sorbitol 1 each 11/16/17 11:47 Cepastat Lozenge - MM Q4H PRN SORE THROAT Gabapentin 100 mg 11/18/17 14:00 11/23/17 13:54 Neurontin - PO 100 mg TID MILA Administration Guaifenesin 10 ml 11/16/17 11:47 Robitussin Dm - PO Q6H PRN COUGH Hydroxyzine Pamoate 50 mg 11/16/17 11:47 11/22/17 21:37 Vistaril - PO 50 mg Q4H PRN Administration AGITATION Loperamide HCl 4 mg 11/16/17 11:47 Imodium - PO Q6H PRN DIARRHEA Magnesium Citrate 300 ml 11/16/17 11:47 Citroma - PO Q48H PRN CONSTIPATION Magnesium Hydroxide 30 ml 11/16/17 11:47 Milk Of Magnesia - PO DAILY PRN CONSTIPATION Nicotine 21 mg 11/17/17 10:00 11/23/17 10:23 Nicoderm Patch - TD Not Given DAILY MILA Nicotine Polacrilex 4 mg 11/16/17 11:47 Nicorette Gum - BUC Q2H PRN NICOTINE REPLACEMENT RX Ondansetron HCl 4 mg 11/23/17 10:30 Zofran Odt - SL Q6H PRN NAUSEA AND/OR VOMITING Pantoprazole Sodium 40 mg 11/18/17 10:00 11/23/17 10:22 Protonix - PO 40 mg DAILY MILA Administration Multivit/Folic Acid/Iron 1 tab 11/17/17 10:00 11/23/17 10:22 Vitamins (Sjr) - PO 1 tab DAILY MILA Administration Pseudoephedrine/Triprolidine 1 combo 11/16/17 11:47 Actifed - PO TID PRN NASAL CONGESTION Thiamine HCl 100 mg 11/16/17 22:00 11/22/17 21:36 Vitamin B1 - PO 100 mg HS MILA Administration Medication(s) Change(s): add Seroquel 25 mg po hs Current Side Effect: No Lab tests ordered: No Lab tests reviewed: Yes Provider note:: Patient generally adjusted well to the unit,feeling bettre, but still unable to sleep and reports that Seroquel was effective in the past. Discussed indications and properties of seroquel with the patient, will add 25 mg, contnitue to monitor progress. Total face to face time:: 15 Mental Status Exam - Mental Status Exam Alert and Oriented to: Time, Place, Person Cognitive Function: Good Patient Appearance: Well Groomed Mood: Hopeful Affect: Appropriate, Mood Congruent Patient Behavior: Appropriate, Cooperative Speech Pattern: Clear, Appropriate Voice Loudness: Normal Thought Process: Intact, Goal Oriented Thought Disorder: Not Present Hallucinations: Denies Suicidal Ideation: Denies Homicidal Ideation: Denies Insight/Judgement: Fair Sleep: Poorly, Difficulty falling asleep Appetite: Fair Muscle strength/Tone: Normal Gait/Station: Normal Psychiatric Treatment Plan - Problem List (1) Opioid dependence Current Visit: Yes (2) PTSD (post-traumatic stress disorder) Current Visit: Yes (3) AUDRA (generalized anxiety disorder) Current Visit: Yes (4) Nicotine dependence Current Visit: Yes Qualifiers: Nicotine product type: cigarettes Substance use status: uncomplicated Qualified Code(s): F17.210 - Nicotine dependence, cigarettes, uncomplicated
[2017-11-23] MEDS: THIAMINE HCL 100 MG TABLET (FP) PO SCH (21:36)
[2017-11-23] MEDS: SUVOREXANT 10 MG TABLET PO SCH (21:37)
[2017-11-23] MEDS: hydrOXYzine PAMOATE 50 MG CAPSULE (FP) PO PRN (21:38)
[2017-11-24] MEDS: GABAPENTIN 100 MG CAPSULE (FP) PO SCH ×2 (06:18→14:40)
[2017-11-24 07:47] VITALS: BP 124/77; PULSE 65; TEMP 98.2
[2017-11-24] MEDS: PRENATAL VITAMINS W/ FOLIC ACID TABLET (FP) PO SCH (10:28)
[2017-11-24] MEDS: cloNIDine HCL 0.1 MG TABLET PO SCH (10:28)
[2017-11-24] MEDS: PANTOPRAZOLE 40 MG TABLET (FP) PO SCH (10:28)
[2017-11-24] MEDS: NICOTINE 21 MG/24 HOURS TOPICAL PATCH TD SCH (10:28)
[2017-11-24] MEDS: BUPRENORPHINE/NALOXONE 2 MG/0.5 MG FILM PACKET SL SCH (10:29)
[2017-11-24] MEDS: hydrOXYzine PAMOATE 50 MG CAPSULE (FP) PO PRN (10:30)
--- NOTE | 2017-11-24 20:33 | DS ---
[facility] Summary Admission Date: 11/16/17 Discharge Date: 11/24/17 - History Present History: Cannabis Dependence, Opioid Dependence - Physical Exam Results Vital Signs: Vital Signs Temperature 98.2 F 11/24/17 07:46 Pulse Rate 65 11/24/17 07:46 Respiratory Rate 18 11/24/17 07:46 Blood Pressure 124/77 11/24/17 07:46 O2 Sat by Pulse Oximetry (%) Pertinent Admission Physical Exam Findings: Vital Signs Temperature 98.2 F 11/24/17 07:46 Pulse Rate 65 11/24/17 07:46 Respiratory Rate 18 11/24/17 07:46 Blood Pressure 124/77 11/24/17 07:46 O2 Sat by Pulse Oximetry (%) Laboratory Last Values WBC 9.6 K/mm3 (4.0-10.0) D 11/17/17 07:30 RBC 5.20 M/mm3 (4.00-5.60) 11/17/17 07:30 Hgb 14.7 GM/dL (11.7-16.9) 11/17/17 07:30 Hct 43.8 % (35.4-49) 11/17/17 07:30 MCV 84.2 fl (80-96) 11/17/17 07:30 MCH 28.2 pg (25.7-33.7) 11/17/17 07:30 MCHC 33.5 g/dl (32.0-35.9) 11/17/17 07:30 RDW 14.9 % (11.9-15.9) 11/17/17 07:30 Plt Count 254 K/MM3 (134-434) 11/17/17 07:30 MPV 8.3 fl (7.5-11.1) 11/17/17 07:30 Total Counted 100 11/16/17 12:00 Neutrophils % 61.5 % (42.8-82.8) 11/17/17 07:30 Neutrophils % (Manual) 74.0 % (42.8-82.8) 11/16/17 12:00 Lymphocytes % 27.2 % (8-40) 11/17/17 07:30 Lymphocytes % (Manual) 16.0 % (8-40) 11/16/17 12:00 Monocytes % 9.3 % (3.8-10.2) 11/17/17 07:30 Monocytes % (Manual) 7 % (3.8-10.2) 11/16/17 12:00 Eosinophils % 1.4 % (0-4.5) 11/17/17 07:30 Eosinophils % (Manual) 1.0 % (0-4.5) 11/16/17 12:00 Basophils % 0.6 % (0-2.0) 11/17/17 07:30 Sodium 138 mmol/L (136-145) 11/17/17 07:30 Potassium 4.2 mmol/L (3.5-5.1) 11/17/17 07:30 Chloride 106 mmol/L (98-107) 11/17/17 07:30 Carbon Dioxide 26 mmol/L (21-32) 11/17/17 07:30 Anion Gap 6 (8-16) L 11/17/17 07:30 BUN 18 mg/dL (7-18) D 11/17/17 07:30 Creatinine 1.1 mg/dL (0.7-1.3) D 11/17/17 07:30 Creat Clearance w eGFR > 60 (>60) 11/17/17 07:30 Random Glucose 113 mg/dL (74-106) H 11/17/17 07:30 Calcium 8.5 mg/dL (8.5-10.1) 11/17/17 07:30 Total Bilirubin 0.6 mg/dL (0.2-1.0) D 11/17/17 07:30 AST 12 U/L (15-37) L 11/17/17 07:30 ALT 18 U/L (12-78) D 11/17/17 07:30 Alkaline Phosphatase 64 U/L (45-117) 11/17/17 07:30 Total Protein 6.5 g/dl (6.4-8.2) 11/17/17 07:30 Albumin 3.5 g/dl (3.4-5.0) 11/17/17 07:30 Urine Color Yellow 11/16/17 20:21 Urine Appearance Slcloudy 11/16/17 20:21 Urine pH 5.0 (5.0-8.0) 11/16/17 20:21 Ur Specific [place] 1.023 (1.001-1.035) 11/16/17 20:21 Urine Protein 2+ (NEGATIVE) H 11/16/17 20:21 Urine Glucose (UA) Negative (NEGATIVE) 11/16/17 20:21 Urine Ketones Negative (NEGATIVE) 11/16/17 20:21 Urine Blood Negative (NEGATIVE) 11/16/17 20:21 Urine Nitrite Negative (NEGATIVE) 11/16/17 20:21 Urine Bilirubin Negative (NEGATIVE) 11/16/17 20:21 Urine Urobilinogen Negative mg/dL (0.2-1.0) 11/16/17 20:21 Ur Leukocyte Esterase Trace (NEGATIVE) 11/16/17 20:21 Urine WBC (Auto) 8 /hpf (3-5) 11/16/17 20:21 Urine RBC (Auto) 3 /hpf (0-3) 11/16/17 20:21 Ur Epithelial Cells Rare /HPF (FEW) 11/16/17 20:21 Urine Bacteria Few /hpf (NONE SEEN) 11/16/17 20:21 Hyaline Casts 17 /lpf 11/16/17 20:21 Urine Mucus Rare 11/16/17 20:21 RPR Titer Nonreactive (NONREACTIVE) 11/16/17 12:00 - Medication Discharge Medications: Ambulatory Orders NK [No Known Home Medication] 11/16/17 - AMA Did Patient Leave Against Medical Advice: Yes
[2017-11-24] MEDS ORDERED: QUEtiapine FUMARATE 25 MG TABLET (FP) PO SCH (22:00)
--- NOTE | 2017-11-25 07:59 | PN ---
[facility] Progress Note Note: Was called by a nurse Jose Castellano on 11/24/17 7.21 pm to inform that patient decided to leave treatment AMA. Please see medical staff notes.
== END 2017-11-24 19:35 | disposition left against medical advice (07) | DRG 770 ==
LOC: YASAS 08:37 → Y5N 12:54
PROVIDERS: ADMIT Psychiatry & Neurology Psychiatry; ATTEND Psychiatry & Neurology Psychiatry
PROC: HZ42ZZZ Group Counseling for Substance Abuse Treatment, Cognitive-Behavioral (ICD-10-PCS; principal; 2017-11-16)
DX: F11.20 Opioid dependence, uncomplicated (principal); F12.20 Cannabis dependence, uncomplicated; F41.1 Generalized anxiety disorder; F43.10 Post-traumatic stress disorder, unspecified; F17.210 Nicotine dependence, cigarettes, uncomplicated; F41.8 Other specified anxiety disorders
CPT/HCPCS: 36415; 71045-TC-FY; 80053; 81003; 81015; 85025; 85027; 86593; 93005; 93010; J0735

== ENCOUNTER 2018-05-25 09:30 | Inpatient (IN) | payer OTHER ==
[2018-05-25 10:46] VITALS: BMI 27.4
--- NOTE | 2018-05-25 12:54 | HP ---
"COWS - Scale Resting Pulse: 0= [place] 80 or Below Sweatin= Chills/Flushing Restless Observation: 3= Extraneous Movement Pupil Size: 2= Moderately Dilated Bone or Joint Aches: 2= Severe Diffuse Aches Runny Nose/ Eye Tearin= Runny Nose/Eyes GI Upset > 30mins: 1= Stomach Cramp Tremor Observation: 1= Tremor [place], Not Seen Yawning Observation: 0= None Anxiety or Irritability: 2=Irritable/Anxious Goose Flesh Skin: 0=Smooth Skin COWS Score: 14 Admission [facility] Chief Complaint: HEROIN WITHDRAWAL SX Allergies/Adverse Reactions: Allergies Allergy/AdvReac Type Severity Reaction Status Date / Time No Known Allergies Allergy Verified 05/25/18 11:12 History of Present Illness: 43 Y/O MALE WITH A HX OF HEROIN,COCAINE,MARIJUANA AND CRYSTAL METH DEPENDENCE SEEKING DETOX. SEEN BELOW, PT HAD BEEN GETTING RX FOR SUBOXONE BUT ADMITS IS NOT TAKING IT AND HAS BEE USING [facility] [address] [facility] INDICATED. PT REPORTS EXTENSIVE TREATMENT EPISODES AND UNABLE TO STOP USING. PT HAS A LETTER FROM HIS PMD, AT [facility] STATING SHE WILL NO LONGER BE PRESCRIBING SUBOXONE TO MR. THAPA(COPY OF FAXED LETTER IN PT'S CHART). Confidential Drug Utilization Report Search Terms: cristo thapa, 1975 Search Date: 05/25/2018 12:46:23 PM The Drug Utilization Report below displays all of the controlled substance prescriptions, if any, that your patient has filled in the last twelve months. The information displayed on this report is compiled from pharmacy submissions to the Department, and accurately reflects the information as submitted by the pharmacies. This report was requested by: Sandra Montero | Reference #: [id number] You have not added a GREG number. Keeping your GREG number(s) up to date on the My GREG Numbers page will enable the separation of your prescriptions from others ' in the search results. Others' Prescriptions Patient Name: Cristo Thapa Date: 1975 Address: [facility] [place] [address] Sex: Male Rx Written Rx Dispensed Drug Quantity Days Supply Prescriber Name 05/23/2018 05/23/2018 suboxone 8 mg-2 mg sl film 21 7 Suzie Holcomb MD 04/22/2018 04/23/2018 suboxone 8 mg-2 mg sl film 90 30 Suzie Holcomb MD Patient Name: Cristo Thapa Date: 1975 Address: [address] [place] [address] Sex: Male Rx Written Rx Dispensed Drug Quantity Days Supply Prescriber Name 03/25/2018 03/29/2018 suboxone 8 mg-2 mg sl film 90 30 Suzie Holcomb MD 03/08/2018 03/08/2018 suboxone 8 mg-2 mg sl film 54 18 Suzie Holcomb MD 02/08/2018 02/10/2018 suboxone 8 mg-2 mg sl film 84 28 Suzie Holcomb MD 01/25/2018 01/25/2018 suboxone 8 mg-2 mg sl film 42 14 Suzie Holcomb MD 01/12/2018 01/13/2018 suboxone 8 mg-2 mg sl film 24 12 Suzie Holcomb MD 01/07/2018 01/07/2018 suboxone 8 mg-2 mg sl film 10 5 Suzie Holcomb MD * - Drugs marked with an asterisk are compound drugs. If the compound drug is made up of more than one controlled substance, then each controlled substance will be a separate row in the table. Click the Report Suspicious Activity button to report information related to controlled substance suspicious activity to the [place] of Narcotic Enforcement. Click the Send Question Exam Limitations: No Limitations - Ebola screening Have you traveled outside of the country in the last 21 days: No Have you had contact with anyone from an Ebola affected area: No Have you been sick,other than usual withdrawal symptoms: No Do you have a fever: No - Review of Systems Constitutional: Chills, Night Sweats, Changes in sleep EENT: reports: Blurred Vision (LEFT EYE REDNESS.), Tearing, Nose Congestion, Dental Problems (CHIPPED TOOTH UPPER FRONTAL) Respiratory: reports: No Symptoms reported Cardiac: reports: No Symptoms Reported GI: reports: Constipated, Nausea : reports: No Symptoms Reported Musculoskeletal: reports: Back Pain, Joint Pain, Muscle Pain, Other (HX ARTHRITIS RIGHT KNEE) Integumentary: reports: Bruising (BOTH FOREARMS) Neuro: reports: Headache, Unsteady Gait Endocrine: reports: No Symptoms Reported Hematology: reports: No Symptoms Reported Psychiatric: reports: Orientated x3, Anxious Other Systems: Reviewed and Negative Patient History - Patient Medical History Hx Anemia: No Hx Asthma: No Hx Chronic Obstructive Pulmonary Disease (COPD): No Hx Cancer: No Hx Cardiac Disorders: Yes (R bundle branch block) Hx Congestive Heart Failure: No Hx Hypertension: No Hx Hypercholesterolemia: Yes (BUT NORMAL NOW; NO CURRENT MED) Hx Pacemaker: No HX Cerebrovascular Accident: No Hx Seizures: No Hx Dementia: No Hx Diabetes: No Hx Gastrointestinal Disorders: No Hx Liver Disease: No Hx Genitourinary Disorders: No Hx Sexually Transmitted Disorders: No (DENIES) Hx Renal Disease (ESRD): No Hx Thyroid Disease: No Hx Human Immunodeficiency Virus (HIV): No (negative hx 2016) Hx Hepatitis C: No (negative) Hx Depression: Yes (AND ANXIETY DUE TO DRUGS) Hx Suicide Attempt: No (DENIES S/I) Hx Bipolar Disorder: No Hx Schizophrenia: No - Patient Surgical History Past Surgical History: No Hx Neurologic Surgery: No Hx Cataract Extraction: No Hx Cardiac Surgery: No Hx Lung Surgery: No Hx Breast Surgery: No Hx Breast Biopsy: No Hx Abdominal Surgery: No Hx Appendectomy: No Hx Cholecystectomy: No Hx Genitourinary Surgery: No Hx Orthopedic Surgery: No Anesthesia Reaction: No - PPD History Previous Implant?: Yes Documented Results: Negative w/proof Implanted On Prior [facility] Admission?: Yes Date: 10/10/17 Results: 0 mm PPD to be Administered?: No - Reproductive History Patient is a Female of Child Bearing Age (11 -55 yrs old): No (MALE) - Smoking Cessation Smoking history: Current every day smoker Have you smoked in the past 12 months: Yes Aproximately how many cigarettes per day: 20 Hx Chewing Tobacco Use: No Initiated information on smoking cessation: Yes 'Breaking Loose' booklet given: 05/25/18 - Substance & Tx. History Hx Alcohol Use: Yes (SOMETIMES) Hx Substance Use: Yes (HEROIN/COCAINE,MARIJUANA,CRYSTAL METH) Substance Use Type: Cocaine, Heroin, Marijuana Hx Substance Use Treatment: Yes (LAST TX AT [facility]) - Substances Abused Heroin Route: Injection Frequency: Daily Amount used: 10 bags Age of first use: 28 Date of Last Use: 05/25/18 Cocaine Route: Injection Frequency: Daily Amount used: 1/8 of an ounce Age of first use: 23 Date of Last Use: 05/25/18 crystal meth Route: Injection Frequency: 1-3 times last 30 days Amount used: 1/2 gram Age of first use: 43 Date of Last Use: 05/22/18 Marijuana/Hashish Frequency: 1-3 times last 30 days Amount used: 1 JOINT Age of first use: 13 Date of Last Use: 05/23/18 Family Disease History - Family Disease History Family Disease History: Heart Disease: Father, [place]: Mother (), Brother ( ) Admission Physical Exam [facility] - Vital Signs Vital Signs: Vital Signs - 24 hr 05/25/18 10:43 Temperature 97.1 F L Pulse Rate 78 Respiratory 18 Rate Blood Pressure 127/86 - Physical General Appearance: Yes: Moderate Distress, Irritable, Anxious HEENTM: Yes: EOMI, Normocephalic, TOM, Pharynx Normal Respiratory: Yes: Chest Non-Tender, Lungs Clear, Normal Breath Sounds, No Respiratory Distress Neck: Yes: No masses,lesions,Nodules, Supple, Trachea in good position Breast: Yes: Breast Exam Deferred Cardiology: Yes: Regular Rhythm, Regular Rate, S1, S2 Abdominal: Yes: Normal Bowel Sounds, Non Tender, Flat, Soft Genitourinary: Yes: Other (N/C) Back: Yes: Within Normal Limits Musculoskeletal: Yes: full range of Motion, Gait Steady Extremities: Yes: Normal Range of Motion, Non-Tender Neurological: Yes: tripe finisher II-XII NML intact, Fully Oriented, Alert, Motor Strength 5/5 Integumentary: Yes: Dry, Warm, Track Finch (BOTH ELBOW AREAS) Lymphatic: Yes: Within Normal Limits - Diagnostic (1) Nicotine dependence Current Visit: Yes Status: Acute Qualifiers: Nicotine product type: cigarettes Substance use status: in withdrawal Qualified Code(s): F17.213 - Nicotine dependence, cigarettes, with withdrawal (2) Opioid dependence with withdrawal Current Visit: Yes Status: Acute (3) Anxiety and depression Current Visit: Yes Status: Chronic (4) Cannabis dependence Current Visit: Yes Status: Acute (5) Cocaine dependence, uncomplicated Current Visit: Yes Status: Acute (6) Methamphetamine dependence Current Visit: Yes Status: Acute Cleared for Admission [facility] - Detox or Rehab [facility] Level of Care: Medically Managed Detox Regimen/Protocol: Methadone [facility] Breath Alcohol Content Breath Alcohol Content: 0 Urine Drug Screen - Results Drug Screen Negative: No Urine Drug Screen Results: THC-Marijuana, DINA-Cocaine, OPI-Opiates, AMP- Amphetamines, MET-Methamphetamine"
[2018-05-25] MEDS ORDERED: MAGNESIUM HYDROX 2400MG/30ML ORAL SUSPENSION 30 ML CUP PO PRN (16:14)
[2018-05-25] MEDS ORDERED: METHADONE HCL 10 MG TABLET (FOR DETOX USE ONLY) PO ONE ×2 (16:14→23:00)
[2018-05-25] MEDS ORDERED: MAG HYDROX/AL HYDROX/SIMETH 30 ML UNIT-DOSE CUP PO PRN (16:14)
[2018-05-25] MEDS ORDERED: NICOTINE POLACRILEX 4 MG GUM BC PRN (16:14)
[2018-05-25] MEDS ORDERED: MAGNESIUM CITRATE 300 ML BOTTLE PO PRN (16:14)
[2018-05-25] MEDS ORDERED: MENTHOL/PHENOL 1 EACH UD MM PRN (16:14)
[2018-05-25] MEDS ORDERED: LOPERAMIDE HCL 2 MG CAPSULE PO PRN (16:14)
[2018-05-25] MEDS ORDERED: guaiFENesin/D-METHORPHAN HB 10 ML UNIT-DOSE CUPS PO PRN (16:14)
[2018-05-25] MEDS ORDERED: P-EPHED 60MG/TRIPROLIDI 2.5MG TABLET PO PRN (16:14)
[2018-05-25] MEDS ORDERED: IBUPROFEN 400 MG TABLET (FP) PO PRN (16:14)
[2018-05-25] MEDS ORDERED: ACETAMINOPHEN 325 MG TABLET (FP) PO PRN (16:14)
[2018-05-25] MEDS: NICOTINE 21 MG/24 HOURS TOPICAL PATCH TD SCH (18:05)
[2018-05-25] MEDS: diazePAM 5 MG TABLET PO PRN ×2 (18:05→22:19)
[2018-05-25] MEDS: THIAMINE HCL 100 MG TABLET (FP) PO SCH (22:19)
[2018-05-25 23:22] LABS: URINE APPEARANCE SLCLOUDY; URINE BILIRUBIN NEGATIVE (<2.0 mg/dL); URINE GLUCOSE (UA) NEGATIVE (NEGATIVE); URINE KETONE NEGATIVE (NEGATIVE); URINE LEUK ESTERASE TRACE (NEGATIVE); URINE NITRITE NEGATIVE (NEGATIVE)
[2018-05-25 23:30] LABS: URINE COLOR YELLOW; URINE PROTEIN 1+ (NEGATIVE)
[2018-05-25 23:34] LABS: CALCIUM OXALATE CRYSTALS FEW /hpf (NONE SEEN); EPI CELLS RARE /HPF (FEW); URINE HYALINE CAST 30 /lpf; URINE MUCUS MANY
[2018-05-26] MEDS ORDERED: METHADONE HCL 10 MG TABLET (FOR DETOX USE ONLY) PO ONE (10:00)
[2018-05-26 10:18] LABS: HEMATOCRIT 41.9 % (35.4-49); MCH 28.7 pg (25.7-33.7); MCHC 33.3 g/dl (32.0-35.9); MEAN CELL VOLUME 86.1 fl (80-96); MEAN PLT VOLUME 8.2 fl (7.5-11.1); PLATELET COUNT 200 K/MM3 (134-434); RBC 4.87 M/mm3 (4.00-5.60); RDW 14.4 % (11.9-15.9); WHITE BLOOD COUNT 7.9 K/mm3 (4.0-10.0)
[2018-05-26 10:37] LABS: CHLORIDE 107 mmol/L (98-107); POTASSIUM 4.6 mmol/L (3.5-5.1); SODIUM 146 mmol/L (136-145)
[2018-05-26] MEDS: diazePAM 5 MG TABLET PO PRN ×3 (10:37→22:30)
[2018-05-26] MEDS: NICOTINE 21 MG/24 HOURS TOPICAL PATCH TD SCH (10:37)
[2018-05-26] MEDS: PRENATAL VITAMINS W/ FOLIC ACID TABLET (FP) PO SCH (10:37)
[2018-05-26 10:54] LABS: ALBUMIN 3.2 g/dl (3.4-5.0); ALK PHOS 60 U/L (45-117); ANION GAP 9 MMOL/L (8-16); BILIRUBIN,TOTAL 0.4 mg/dL (0.2-1.0); BLOOD UREA NITROGEN 13 mg/dL (7-18); CALCIUM 8.6 mg/dL (8.5-10.1); CO2 30 mmol/L (21-32); CREATININE 0.7 mg/dL (0.7-1.3); GLUCOSE,RANDOM 93 mg/dL (74-106); SGOT/AST 12 U/L (15-37); SGPT/ALT 19 U/L (12-78); TOT PROT 6.1 g/dl (6.4-8.2)
--- NOTE | 2018-05-26 13:28 | PN ---
[facility] COWS - Scale Resting Pulse: 0= [place] 80 or Below Sweatin= Chills/Flushing Restless Observation: 1= Difficult to Sit Still Pupil Size: 0= Normal to Room Light Bone or Joint Aches: 2= Severe Diffuse Aches Runny Nose/ Eye Tearin= Runny Nose/Eyes GI Upset > 30mins: 0= None Tremor Observation of Outstretched Hands: 2= Slight Tremor Visible Yawning Observation: 1= 1-2x During Session Anxiety or Irritability: 4=Extreme Anxiety Goose Flesh Skin: 0=Smooth Skin COWS Score: 13 [facility] Progress Note (SOAP) Subjective: Tremors, Body Aches, Sweating, Anxious. Objective: 05/26/18 13:37 Vital Signs Temperature 98.0 F 05/26/18 10:15 Pulse Rate 70 05/26/18 10:15 Respiratory Rate 18 05/26/18 10:15 Blood Pressure 115/68 05/26/18 10:15 O2 Sat by Pulse Oximetry (%) Laboratory Tests 05/25/18 05/26/18 05/26/18 21:48 07:00 07:00 WBC 7.9 RBC 4.87 Hgb 14.0 Hct 41.9 MCV 86.1 MCH 28.7 MCHC 33.3 RDW 14.4 Plt Count 200 D MPV 8.2 Sodium 146 H Potassium 4.6 Chloride 107 Carbon Dioxide 30 Anion Gap 9 BUN 13 Creatinine 0.7 Creat Clearance w eGFR > 60 Random Glucose 93 Calcium 8.6 Total Bilirubin 0.4 AST 12 L ALT 19 Alkaline Phosphatase 60 Total Protein 6.1 L Albumin 3.2 L Urine Color Yellow Urine Appearance Slcloudy Urine pH 5.0 Ur Specific [place] 1.030 Urine Protein 1+ H Urine Glucose (UA) Negative Urine Ketones Negative Urine Blood Negative Urine Nitrite Negative Urine Bilirubin Negative Urine Urobilinogen 2.0 Ur Leukocyte Esterase Trace Urine WBC (Auto) 37 Urine RBC (Auto) 6 Ur Epithelial Cells Rare Calcium Oxalate Crystal Few Hyaline Casts 30 Urine Mucus Many RPR Titer 05/26/18 07:00 WBC RBC Hgb Hct MCV MCH MCHC RDW Plt Count MPV Sodium Potassium Chloride Carbon Dioxide Anion Gap BUN Creatinine Creat Clearance w eGFR Random Glucose Calcium Total Bilirubin AST ALT Alkaline Phosphatase Total Protein Albumin Urine Color Urine Appearance Urine pH Ur Specific [place] Urine Protein Urine Glucose (UA) Urine Ketones Urine Blood Urine Nitrite Urine Bilirubin Urine Urobilinogen Ur Leukocyte Esterase Urine WBC (Auto) Urine RBC (Auto) Ur Epithelial Cells Calcium Oxalate Crystal Hyaline Casts Urine Mucus RPR Titer Nonreactive LABS NOTED. Assessment: 05/26/18 13:37 WITHDRAWAL SYMPTOMS. Plan: CONTINUE DETOX. INCREASE DAILY PO FLUID INTAKE. REPEAT UA FOR ADMISSION UA ABNORMALITIES.
--- NOTE | 2018-05-26 14:27 | CONSULT ---
[facility] Psychiatric Consult - Data Date of interview: 05/26/18 Admission source: [facility] Identifying data: Patient is a 43 year old single male, homeless, father of one , and currently unemployed. This is one of multiple admissions for patient. Pt. admitted to for opioid, cocaine, and marijuana dependence. Substance Abuse History: Smoking Cessation. Smoking history: Current every day smoker. Have you smoked in the past 12 months: Yes. Aproximately how many cigarettes per day: 20. Hx Chewing Tobacco Use: No. Initiated information on smoking cessation: Yes. 'Breaking Loose' booklet given: 05/25/18. - Substance & Tx. History. Hx Alcohol Use: Yes (SOMETIMES). Hx Substance Use: Yes (HEROIN/ COCAINE,MARIJUANA,CRYSTAL METH). Substance Use Type: Cocaine, Heroin, Marijuana. Hx Substance Use Treatment: Yes (LAST TX AT [facility]). - Substances Abused. Heroin. Route: Injection. Frequency: Daily. Amount used: 10 bags. Age of first use: 28. Date of Last Use: 05/25/18. Cocaine. Route: Injection. Frequency: Daily. Amount used: 1/8 of an ounce. Age of first use: 23. Date of Last Use: 05/25/18. crystal meth. Route: Injection. Frequency: 1-3 times last 30 days. Amount used: 1/2 gram. Age of first use: 43. Date of Last Use: 05/22/18. Marijuana/Hashish. Frequency: 1 -3 times last 30 days. Amount used: 1 JOINT. Age of first use: 13. Date of Last Use: 05/23/18 Medical History: hypercholesterolemia, R bundle branch block Psychiatric History: Patient denies h/o psychiatric hospitalization. Patient irriable throughout interview. Patient reports psychiatric treatment while in detox / rehab facilites. Patient has also received OPD in the past but was non compliant. Reports medication trials of wellbutrin, buspar, and klonopin. States he was recently started on prozac while at [facility] rehab facility but did not follow up with aftercare. Pt. refusing to restart psychotropic medications. Physical/Sexual Abuse/Trauma History: denies Mental Status Exam - Mental Status Exam Alert and Oriented to: Time, Place, Person Cognitive Function: Good Patient Appearance: Well Groomed Mood: Euthymic, Irritable Affect: Mood Congruent Patient Behavior: Guarded, Cooperative Speech Pattern: Appropriate Voice Loudness: Normal Thought Process: Intact, Goal Oriented Thought Disorder: Not Present Hallucinations: Denies Suicidal Ideation: Denies Homicidal Ideation: Denies Insight/Judgement: Poor Sleep: Fair Appetite: Fair Muscle strength/Tone: Normal Gait/Station: Normal Psychiatric Findings - Problem List ([place] 1, 2,3) (1) Cannabis dependence Current Visit: Yes Status: Acute (2) Cocaine dependence, uncomplicated Current Visit: Yes Status: Acute (3) Nicotine dependence Current Visit: Yes Status: Acute Qualifiers: Nicotine product type: cigarettes Substance use status: in withdrawal Qualified Code(s): F17.213 - Nicotine dependence, cigarettes, with withdrawal (4) Opioid dependence with withdrawal Current Visit: Yes Status: Acute (5) Substance induced mood disorder Current Visit: Yes Status: Acute - Initial Treatment Plan Initial Treatment Plan: Psychoeducation provided. Detoxification in progress. Observation.
[2018-05-26] MEDS: SULFACETAMIDE SODIUM 10% OPHTHALMIC DROPS 15 ML BOTTLE OS SCH ×3 (14:40→22:31)
--- NOTE | 2018-05-26 16:07 | EKG ---
Test Reason : Blood Pressure : / mmHG Vent. Rate : 081 BPM Atrial Rate : 081 BPM P-R Int : 132 ms QRS Dur : 110 ms QT Int : 374 ms P-R-T Axes : 075 052 057 degrees QTc Int : 434 ms NORMAL SINUS RHYTHM INCOMPLETE RIGHT BUNDLE BRANCH BLOCK BORDERLINE ECG WHEN COMPARED WITH ECG OF 16-NOV-2017 17:09, INCOMPLETE RIGHT BUNDLE BRANCH BLOCK HAS REPLACED RIGHT BUNDLE BRANCH BLOCK Confirmed by Della Loyd ([id number]) on 05/26/2018 4:06:53 PM Referred By: Milana Munoz Confirmed By:Della Loyd
[2018-05-26] MEDS: THIAMINE HCL 100 MG TABLET (FP) PO SCH (22:31)
[2018-05-27] MEDS: SULFACETAMIDE SODIUM 10% OPHTHALMIC DROPS 15 ML BOTTLE OS SCH ×6 (02:02→22:21)
[2018-05-27] MEDS ORDERED: METHADONE HCL 5 MG TABLET (FOR DETOX USE ONLY) PO ONE (10:00)
[2018-05-27] MEDS: PRENATAL VITAMINS W/ FOLIC ACID TABLET (FP) PO SCH (10:18)
[2018-05-27] MEDS: diazePAM 5 MG TABLET PO PRN ×3 (10:19→22:21)
[2018-05-27] MEDS: NICOTINE 21 MG/24 HOURS TOPICAL PATCH TD SCH (10:19)
--- NOTE | 2018-05-27 13:16 | PN ---
[facility]HS COWS - Scale Resting Pulse: 1= [place] 81-100 Sweatin= No chills or Flushing Restless Observation: 1= Difficult to Sit Still Pupil Size: 0= Normal to Room Light Bone or Joint Aches: 2= Severe Diffuse Aches Runny Nose/ Eye Tearin= Nasal Congestion GI Upset > 30mins: 0= None Tremor Observation of Outstretched Hands: 2= Slight Tremor Visible Yawning Observation: 1= 1-2x During Session Anxiety or Irritability: 4=Extreme Anxiety Goose Flesh Skin: 0=Smooth Skin COWS Score: 12 S Progress Note (SOAP) Subjective: Tremors, Anxious, Body Aches. Objective: PATIENT A & O X 3, OBSERVED AMBULATING ON UNIT. NO ACUTE DISTRESS. 05/27/18 13:14 Vital Signs Temperature 97.0 F L 05/27/18 10:02 Pulse Rate 82 05/27/18 10:02 Respiratory Rate 20 05/27/18 10:02 Blood Pressure 110/72 05/27/18 10:02 O2 Sat by Pulse Oximetry (%) Laboratory Tests 05/25/18 05/26/18 05/26/18 21:48 07:00 07:00 WBC 7.9 RBC 4.87 Hgb 14.0 Hct 41.9 MCV 86.1 MCH 28.7 MCHC 33.3 RDW 14.4 Plt Count 200 D MPV 8.2 Sodium 146 H Potassium 4.6 Chloride 107 Carbon Dioxide 30 Anion Gap 9 BUN 13 Creatinine 0.7 Creat Clearance w eGFR > 60 Random Glucose 93 Calcium 8.6 Total Bilirubin 0.4 AST 12 L ALT 19 Alkaline Phosphatase 60 Total Protein 6.1 L Albumin 3.2 L Urine Color Yellow Urine Appearance Slcloudy Urine pH 5.0 Ur Specific [place] 1.030 Urine Protein 1+ H Urine Glucose (UA) Negative Urine Ketones Negative Urine Blood Negative Urine Nitrite Negative Urine Bilirubin Negative Urine Urobilinogen 2.0 Ur Leukocyte Esterase Trace Urine WBC (Auto) 37 Urine RBC (Auto) 6 Ur Epithelial Cells Rare Calcium Oxalate Crystal Few Hyaline Casts 30 Urine Mucus Many RPR Titer 05/26/18 07:00 WBC RBC Hgb Hct MCV MCH MCHC RDW Plt Count MPV Sodium Potassium Chloride Carbon Dioxide Anion Gap BUN Creatinine Creat Clearance w eGFR Random Glucose Calcium Total Bilirubin AST ALT Alkaline Phosphatase Total Protein Albumin Urine Color Urine Appearance Urine pH Ur Specific [place] Urine Protein Urine Glucose (UA) Urine Ketones Urine Blood Urine Nitrite Urine Bilirubin Urine Urobilinogen Ur Leukocyte Esterase Urine WBC (Auto) Urine RBC (Auto) Ur Epithelial Cells Calcium Oxalate Crystal Hyaline Casts Urine Mucus RPR Titer Nonreactive LABS NOTED. Assessment: 05/27/18 13:15 WITHDRAWAL SYMPTOMS. Plan: CONTINUE DETOX. INCREASE DAILY PO FLUID INTAKE. REPEAT UA FOR ADMISSION UA ABNORMALITIES.
[2018-05-27] MEDS: THIAMINE HCL 100 MG TABLET (FP) PO SCH (22:21)
[2018-05-27] MEDS: MELATONIN 5 MG TABLETS PO PRN (22:23)
[2018-05-28] MEDS: SULFACETAMIDE SODIUM 10% OPHTHALMIC DROPS 15 ML BOTTLE OS SCH ×6 (05:09→22:30)
[2018-05-28] MEDS ORDERED: METHADONE HCL 5 MG TABLET (FOR DETOX USE ONLY) PO ONE (10:00)
[2018-05-28] MEDS: PRENATAL VITAMINS W/ FOLIC ACID TABLET (FP) PO SCH (10:39)
[2018-05-28] MEDS: NICOTINE 21 MG/24 HOURS TOPICAL PATCH TD SCH (10:39)
[2018-05-28 12:50] LABS: URINE APPEARANCE CLEAR; URINE BILIRUBIN NEGATIVE (<2.0 mg/dL); URINE COLOR STRAW; URINE GLUCOSE (UA) NEGATIVE (NEGATIVE); URINE KETONE NEGATIVE (NEGATIVE); URINE LEUK ESTERASE NEGATIVE (NEGATIVE); URINE NITRITE NEGATIVE (NEGATIVE); URINE PROTEIN NEGATIVE (NEGATIVE); URINE UROBILINOGEN NEGATIVE mg/dL (0.2-1.0)
[2018-05-28] MEDS: diazePAM 5 MG TABLET PO PRN (14:57)
--- NOTE | 2018-05-28 15:37 | PN ---
BHS Progress Note (SOAP) Subjective: Fatigue, Sweating, Anxious. Objective: PATIENT A & O X 3. NO ACUTE DISTRESS. 05/28/18 15:35 Vital Signs Temperature 97.2 F L 05/28/18 09:52 Pulse Rate 68 05/28/18 09:52 Respiratory Rate 18 05/28/18 09:52 Blood Pressure 106/63 05/28/18 09:52 O2 Sat by Pulse Oximetry (%) Laboratory Tests 05/25/18 05/26/18 05/26/18 21:48 07:00 07:00 WBC 7.9 RBC 4.87 Hgb 14.0 Hct 41.9 MCV 86.1 MCH 28.7 MCHC 33.3 RDW 14.4 Plt Count 200 D MPV 8.2 Sodium 146 H Potassium 4.6 Chloride 107 Carbon Dioxide 30 Anion Gap 9 BUN 13 Creatinine 0.7 Creat Clearance w eGFR > 60 Random Glucose 93 Calcium 8.6 Total Bilirubin 0.4 AST 12 L ALT 19 Alkaline Phosphatase 60 Total Protein 6.1 L Albumin 3.2 L Urine Color Yellow Urine Appearance Slcloudy Urine pH 5.0 Ur Specific [place] 1.030 Urine Protein 1+ H Urine Glucose (UA) Negative Urine Ketones Negative Urine Blood Negative Urine Nitrite Negative Urine Bilirubin Negative Urine Urobilinogen 2.0 Ur Leukocyte Esterase Trace Urine WBC (Auto) 37 Urine RBC (Auto) 6 Ur Epithelial Cells Rare Calcium Oxalate Crystal Few Hyaline Casts 30 Urine Mucus Many RPR Titer 05/26/18 05/28/18 07:00 06:47 WBC RBC Hgb Hct MCV MCH MCHC RDW Plt Count MPV Sodium Potassium Chloride Carbon Dioxide Anion Gap BUN Creatinine Creat Clearance w eGFR Random Glucose Calcium Total Bilirubin AST ALT Alkaline Phosphatase Total Protein Albumin Urine Color Straw Urine Appearance Clear Urine pH 5.0 Ur Specific [place] 1.009 Urine Protein Negative Urine Glucose (UA) Negative Urine Ketones Negative Urine Blood Negative Urine Nitrite Negative Urine Bilirubin Negative Urine Urobilinogen Negative Ur Leukocyte Esterase Negative Urine WBC (Auto) Urine RBC (Auto) Ur Epithelial Cells Calcium Oxalate Crystal Hyaline Casts Urine Mucus RPR Titer Nonreactive LABS NOTED. RESULTS OF REPEAT UA NOTED. 05/28/18 15:36 Assessment: 05/28/18 15:36 WITHDRAWAL SYMPTOMS. Plan: CONTINUE DETOX.
--- NOTE | 2018-05-28 19:28 | DS ---
[facility] Detox Discharge Summary Admission Date: 05/25/18 Discharge Date: 05/28/18 - History Present History: Opioid Dependence Pertinent Past History: Cardiac disorders, HLD - Physical Exam Results Vital Signs: Vital Signs Temperature 97.8 F 05/28/18 18:16 Pulse Rate 72 05/28/18 18:16 Respiratory Rate 18 05/28/18 18:16 Blood Pressure 120/87 05/28/18 18:16 O2 Sat by Pulse Oximetry (%) Pertinent Admission Physical Exam Findings: Withdrawal sx Laboratory Last Values WBC 7.9 K/mm3 (4.0-10.0) 05/26/18 07:00 RBC 4.87 M/mm3 (4.00-5.60) 05/26/18 07:00 Hgb 14.0 GM/dL (11.7-16.9) 05/26/18 07:00 Hct 41.9 % (35.4-49) 05/26/18 07:00 MCV 86.1 fl (80-96) 05/26/18 07:00 MCH 28.7 pg (25.7-33.7) 05/26/18 07:00 MCHC 33.3 g/dl (32.0-35.9) 05/26/18 07:00 RDW 14.4 % (11.9-15.9) 05/26/18 07:00 Plt Count 200 K/MM3 (134-434) D 05/26/18 07:00 MPV 8.2 fl (7.5-11.1) 05/26/18 07:00 Sodium 146 mmol/L (136-145) H 05/26/18 07:00 Potassium 4.6 mmol/L (3.5-5.1) 05/26/18 07:00 Chloride 107 mmol/L (98-107) 05/26/18 07:00 Carbon Dioxide 30 mmol/L (21-32) 05/26/18 07:00 Anion Gap 9 MMOL/L (8-16) 05/26/18 07:00 BUN 13 mg/dL (7-18) 05/26/18 07:00 Creatinine 0.7 mg/dL (0.7-1.3) 05/26/18 07:00 Creat Clearance w eGFR > 60 (>60) 05/26/18 07:00 Random Glucose 93 mg/dL (74-106) 05/26/18 07:00 Calcium 8.6 mg/dL (8.5-10.1) 05/26/18 07:00 Total Bilirubin 0.4 mg/dL (0.2-1.0) 05/26/18 07:00 AST 12 U/L (15-37) L 05/26/18 07:00 ALT 19 U/L (12-78) 05/26/18 07:00 Alkaline Phosphatase 60 U/L (45-117) 05/26/18 07:00 Total Protein 6.1 g/dl (6.4-8.2) L 05/26/18 07:00 Albumin 3.2 g/dl (3.4-5.0) L 05/26/18 07:00 Urine Color Straw 05/28/18 06:47 Urine Appearance Clear 05/28/18 06:47 Urine pH 5.0 (5.0-8.0) 05/28/18 06:47 Ur Specific [place] 1.009 (1.001-1.035) 05/28/18 06:47 Urine Protein Negative (NEGATIVE) 05/28/18 06:47 Urine Glucose (UA) Negative (NEGATIVE) 05/28/18 06:47 Urine Ketones Negative (NEGATIVE) 05/28/18 06:47 Urine Blood Negative (NEGATIVE) 05/28/18 06:47 Urine Nitrite Negative (NEGATIVE) 05/28/18 06:47 Urine Bilirubin Negative (<2.0 mg/dL) 05/28/18 06:47 Urine Urobilinogen Negative mg/dL (0.2-1.0) 05/28/18 06:47 Ur Leukocyte Esterase Negative (NEGATIVE) 05/28/18 06:47 Urine WBC (Auto) 37 /hpf (3-5) 05/25/18 21:48 Urine RBC (Auto) 6 /hpf (0-3) 05/25/18 21:48 Ur Epithelial Cells Rare /HPF (FEW) 05/25/18 21:48 Calcium Oxalate Crystal Few /hpf (NONE SEEN) 05/25/18 21:48 Hyaline Casts 30 /lpf 05/25/18 21:48 Urine Mucus Many 05/25/18 21:48 RPR Titer Nonreactive (NONREACTIVE) 05/26/18 07:00 Labs noted - Medication Discharge Medications: Ambulatory Orders Sulfacetamide Sodium 10% [Bleph-10 Ophthalmic Solution -] 2 drop OS Q4H - Diagnosis (1) Cocaine dependence, uncomplicated Current Visit: Yes Status: Acute (2) Methamphetamine dependence Current Visit: Yes Status: Acute (3) Nicotine dependence Current Visit: Yes Status: Acute Qualifiers: Nicotine product type: cigarettes Substance use status: in withdrawal Qualified Code(s): F17.213 - Nicotine dependence, cigarettes, with withdrawal (4) Opioid dependence with withdrawal Current Visit: Yes Status: Acute (5) Substance induced mood disorder Current Visit: Yes Status: Acute (6) Anxiety and depression Current Visit: Yes Status: Chronic - AMA Did Patient Leave Against Medical Advice: Yes
[2018-05-28] MEDS: THIAMINE HCL 100 MG TABLET (FP) PO SCH (22:30)
[2018-05-28] MEDS: MELATONIN 5 MG TABLETS PO PRN (22:30)
[2018-05-29] MEDS: SULFACETAMIDE SODIUM 10% OPHTHALMIC DROPS 15 ML BOTTLE OS SCH ×4 (04:05→14:22)
--- NOTE | 2018-05-29 07:21 | PN ---
S Progress Note Note: informed client aborted admission last night still on the unit
[2018-05-29] MEDS ORDERED: METHADONE HCL 10 MG TABLET (FOR DETOX USE ONLY) PO ONE (10:00)
[2018-05-29] MEDS: NICOTINE 21 MG/24 HOURS TOPICAL PATCH TD SCH (10:12)
[2018-05-29] MEDS: PRENATAL VITAMINS W/ FOLIC ACID TABLET (FP) PO SCH (10:12)
--- NOTE | 2018-05-29 15:56 | PN ---
BHS Progress Note (SOAP) Subjective: Interrupted sleep, irritable, restless Objective: 05/29/18 15:53 Last Vital Signs Temp Pulse Resp BP Pulse Ox 98.2 F 68 18 107/65 05/29/18 14:43 05/29/18 14:43 05/29/18 14:43 05/29/18 14:43 Laboratory Tests 05/25/18 05/26/18 05/26/18 21:48 07:00 07:00 WBC 7.9 RBC 4.87 Hgb 14.0 Hct 41.9 MCV 86.1 MCH 28.7 MCHC 33.3 RDW 14.4 Plt Count 200 D MPV 8.2 Sodium 146 H Potassium 4.6 Chloride 107 Carbon Dioxide 30 Anion Gap 9 BUN 13 Creatinine 0.7 Creat Clearance w eGFR > 60 Random Glucose 93 Calcium 8.6 Total Bilirubin 0.4 AST 12 L ALT 19 Alkaline Phosphatase 60 Total Protein 6.1 L Albumin 3.2 L Urine Color Yellow Urine Appearance Slcloudy Urine pH 5.0 Ur Specific [place] 1.030 Urine Protein 1+ H Urine Glucose (UA) Negative Urine Ketones Negative Urine Blood Negative Urine Nitrite Negative Urine Bilirubin Negative Urine Urobilinogen 2.0 Ur Leukocyte Esterase Trace Urine WBC (Auto) 37 Urine RBC (Auto) 6 Ur Epithelial Cells Rare Calcium Oxalate Crystal Few Hyaline Casts 30 Urine Mucus Many RPR Titer 05/26/18 05/28/18 07:00 06:47 WBC RBC Hgb Hct MCV MCH MCHC RDW Plt Count MPV Sodium Potassium Chloride Carbon Dioxide Anion Gap BUN Creatinine Creat Clearance w eGFR Random Glucose Calcium Total Bilirubin AST ALT Alkaline Phosphatase Total Protein Albumin Urine Color Straw Urine Appearance Clear Urine pH 5.0 Ur Specific [place] 1.009 Urine Protein Negative Urine Glucose (UA) Negative Urine Ketones Negative Urine Blood Negative Urine Nitrite Negative Urine Bilirubin Negative Urine Urobilinogen Negative Ur Leukocyte Esterase Negative Urine WBC (Auto) Urine RBC (Auto) Ur Epithelial Cells Calcium Oxalate Crystal Hyaline Casts Urine Mucus RPR Titer Nonreactive Labs reviewed Assessment: 05/29/18 15:53 Withdrawal symptoms Plan: Continue detox Encouraged PO water hydration
[2018-05-29 18:01] VITALS: BP 109/73; PULSE 73; TEMP 98.1
[2018-05-30] MEDS ORDERED: METHADONE HCL 5 MG TABLET (FOR DETOX USE ONLY) PO ONE (06:00)
== END 2018-05-29 06:50 | disposition left against medical advice (07) | DRG 770 ==
LOC: YASAS 09:30 → Y3N 16:24
PROVIDERS: ADMIT Surgery; ATTEND Surgery
PROC: HZ2ZZZZ Detoxification Services for Substance Abuse Treatment (ICD-10-PCS; principal; 2018-05-25)
DX: F11.23 Opioid dependence with withdrawal (principal); F14.20 Cocaine dependence, uncomplicated; F15.20 Other stimulant dependence, uncomplicated; F12.20 Cannabis dependence, uncomplicated; F17.213 Nicotine dependence, cigarettes, with withdrawal; F19.24 Other psychoactive substance dependence with psychoactive substance-induced mood disorder; F41.8 Other specified anxiety disorders; I45.10 Unspecified right bundle-branch block; Z59.0 Homelessness
CPT/HCPCS: 36415; 80053; 81003; 81015; 85027; 86593; 93005; 93010

== ENCOUNTER 2018-09-16 06:51 | Emergency (ER) | payer OTHER ==
--- NOTE | 2018-09-16 07:23 | PDOC ---
History of Present Illness - General Stated Complaint: SUBSTANCE ABUSE, ANXIETY - History of Present Illness Initial Comments: The patient is a 43M w/ a history of heroin, methamphetamine, and opioid abuse who presents for evaluation s/p IV cocaine use at 0300 this morning. He states that he is currently experiencing his typical post-use symptoms: non-radiating mid-thoracic back pain/soreness and generalized non-radiating abdominal soreness. Endorses drinking a bottle of vodka last night. Denies history of EtOH withdrawal symptoms. Denies other substance use last night. Denies PENA, vision changes, chest pain, SOB, N/V/C/D, dysuria, hematuria, or changes in sensation PMH: denies PSH: denies Allergies: denies 09/16/18 08:25 Past History - Past Medical History Allergies/Adverse Reactions: Allergies Allergy/AdvReac Type Severity Reaction Status Date / Time No Known Allergies Allergy Verified 05/25/18 11:12 Home Medications: Ambulatory Orders Sulfacetamide Sodium 10% [Bleph-10 Ophthalmic Solution -] 2 drop OS Q4H Anemia: No Asthma: No Cancer: No Cardiac Disorders: Yes (R bundle branch block) CVA: No COPD: No CHF: No Dementia: No Diabetes: No GI Disorders: No Disorders: No HTN: No Hypercholesterolemia: Yes (BUT NORMAL NOW; NO CURRENT MED) Kidney Stones: No Liver Disease: No Seizures: No Thyroid Disease: No - Surgical History Abdominal Surgery: No Appendectomy: No Cardiac Surgery: No Cholecystectomy: No Lung Surgery: No Neurologic Surgery: No Orthopedic Surgery: No - Reproductive History Testicular Surgery: No - Suicide/Smoking/Psychosocial Hx Smoking History: Current every day smoker Have you smoked in the past 12 months: Yes Number of Cigarettes Smoked Daily: 20 'Breaking Loose' booklet given: 05/25/18 Hx Alcohol Use: Yes (SOMETIMES) Drug/Substance Use Hx: Yes (HEROIN/COCAINE,MARIJUANA,CRYSTAL METH) Substance Use Type: Cocaine, Heroin, Marijuana Hx Substance Use Treatment: Yes (LAST TX AT [facility]) Review of Systems - Review of Systems Able to Perform ROS?: Yes Comments:: GENERAL/CONSTITUTIONAL: No fever or chills. No weakness HEAD, EYES, EARS, NOSE AND THROAT: No change in vision. No ear pain or discharge. No sore throat CARDIOVASCULAR: No chest pain or shortness of breath RESPIRATORY: Denies cough, hemoptysis GASTROINTESTINAL: No nausea, vomiting, diarrhea or constipation GENITOURINARY: No dysuria, frequency, or change in urination MUSCULOSKELETAL: No joint or muscle swelling or pain. No neck or back pain SKIN: No rash NEUROLOGIC: No headache, vertigo, loss of consciousness, or change in strength/ sensation ENDOCRINE: No increased thirst. No abnormal weight change HEMATOLOGIC/LYMPHATIC: No anemia, easy bleeding, or history of blood clots ALLERGIC/IMMUNOLOGIC: No hives or skin allergy 09/16/18 07:22 Is the patient limited Ukrainian proficient: No *Physical Exam - Vital Signs Vital Signs Temp Pulse Resp BP Pulse Ox 98.4 F 87 16 108/63 96 09/16/18 07:15 09/16/18 07:15 09/16/18 07:15 09/16/18 07:15 09/16/18 07:15 09/16/18 08:38 - Physical Exam Comments: GENERAL: Awake, alert, and fully oriented, in no acute distress HEAD: No signs of trauma, normocephalic, atraumatic EYES: PERRLA, EOMI, sclera anicteric, conjunctiva clear ENT: Hearing grossly normal, nares patent, oropharynx clear without exudates. Moist mucosa LUNGS: No distress, speaks full sentences, clear to auscultation bilaterally HEART: Regular rate and rhythm, normal S1 and S2, no murmurs appreciated, peripheral pulses normal and equal bilaterally ABDOMEN: Soft, mild generalized TTP w/o rebound or guarding, normoactive bowel sounds EXTREMITIES : L antecubital track licona with small underlying hematoma, no evidence of cellulitis, Normal range of motion, no edema. No clubbing or cyanosis NEUROLOGICAL: Cranial nerves II through XII grossly intact. Normal speech, normal gait, no focal sensorimotor deficits SKIN: L antecubital track licona with small underlying hematoma 09/16/18 07:22 ED Treatment Course - LABORATORY CBC & Chemistry Diagram: 09/16/18 07:56 09/16/18 07:56 Medical Decision Making - Medical Decision Making The patient is a 43M w/ a history of heroin, methamphetamine, and opioid abuse who presents for evaluation s/p IV cocaine use and subsequent anxiety. Patient would like admission to go to detox at [facility] ED Course CMP, CBC, Trop I ECG 09/16/18 07:57 ECG w/ sinus rhythm, HR 73, evidence of incomplete RBBB (present on previous ECG ), no ST-segment elevation, QTc 453 Labs sent Patient reports both recent heroin and cocaine usage and that he would like to pursue detox from heroin 09/16/18 09:04 No leukocytosis No anemia Lytes wnl No SUE LFTs wnl Trop I neg Patient became impatient for transport back to [facility]. Became verbally abusive to myself and staff. Patient then flung blood onto myself and threatened to do so to others from his IV site. Security responded and were able to deescalate his behavior enough to place a dressing on his IV site. Patient was transported back to [facility] to continue detox Dispo: D/C *DC/Admit/Observation/Transfer Diagnosis at time of Disposition: Methamphetamine dependence - Discharge Dispostion Disposition: HOME Condition at time of disposition: Improved Decision to Admit order: No - Referrals Referrals: Kg Gaytan MD [Staff Physician] - Roderick Serrato MD [Staff Physician] - - Patient Instructions Printed Discharge Instructions: DI for Drug Abuse and Drug Addiction Additional Instructions: You were seen in the Emergency Department for evaluation after recent cocaine and heroin use. You were given fluids and Tylenol. You were found to have normal electrolytes as and no current evidence of acute heart strain. Please review the handout provided at discharge. Please follow up with a primary care physician. Return to the Emergency Department if you develop fevers, worsening back pain, changes in sensation, confusion, lethargy, chest pain, trouble breathing, or any new/concerning symptoms. - Post Discharge Activity
[2018-09-16] MEDS ORDERED: SODIUM CHLORIDE 0.9% 500 ML INFUS.BAG IV ONE (07:41)
[2018-09-16] MEDS ORDERED: ACETAMINOPHEN 1000 MG/100 ML VIAL (NON FORMULARY) IVPB ONE (07:41)
[2018-09-16 07:46] VITALS: BP 108/63; PULSE 87; TEMP 98.4; BMI 59.4
--- NOTE | 2018-09-16 07:49 | PDOC ---
Attending Attestation - Resident Resident Name: RussellTaz duenas - ED Attending Attestation I have performed the following: I have examined & evaluated the patient, The case was reviewed & discussed with the resident, I agree w/resident's findings & plan, Exceptions are as noted - HPI HPI: 09/16/18 10:50 43 years old past medical history significant for heroin and methamphetamine and opiate abuse presents to the ED status post IV cocaine and heroin use last night describing typical post use symptoms of thoracic back pain generalized radiating abdominal pain Symptoms are mild to moderate persistent concent no exacerbating or alleviating factors. Denies overt chest pain shortness of breath ROS: A complete review of 10 out of 10 review of systems is taken and is negative apart from what is previously mentioned below and in the HPI. - Physicial Exam PE: 09/16/18 10:52 Vitals: Triage Vital signs reviewed General Appearance: no acute distress, well nourished well developed, Head: Atraumatic, Eyes: Pupils equal reactive round, extraocular movement intact Chest Wall: Nontender Cardiac: Regular rate and rhythym, no murmurs, no rubs, no gallops, Lungs: Clear to auscultation bilateral, good air movement bilaterally, Abdomen: Soft, non distended, normal bowel sounds, non tender to palpation Extremities: Full range of motion to all extremities, no cyanosis, clubbing, or edema Skin: Warm and dry, no rashes or lesions, no rash, no petechiae Psych: normal mood, normal affect - Medical Decision Making 09/16/18 11:28 History and examination consistent with mild substance abuse withdrawal CIWA scale less than 8 patient stable for transfer to detox facility interested in detox Nonischemic EKG negative troponin Heart Score/ECG Review - ECG Impressions Comment:: 09/16/18 11:29 EKG performed at 8:18 AM. Demonstrates normal sinus rhythm no ST elevations or T -wave inversions. Right bundle-branch block. Interpreted by me.
[2018-09-16] MEDS ORDERED: ACETAMINOPHEN INJECTION 100 ML IVPB ONE (08:00)
[2018-09-16 08:56] LABS: HEMATOCRIT 43.7 % (35.4-49); HEMOGLOBIN 14.4 GM/dL (11.7-16.9); MCH 27.7 pg (25.7-33.7); MCHC 32.9 g/dl (32.0-35.9); MEAN CELL VOLUME 84.4 fl (80-96); MEAN PLT VOLUME 8.5 fl (7.5-11.1); PLATELET COUNT 269 K/MM3 (134-434); RBC 5.18 M/mm3 (4.00-5.60); RDW 14.8 % (11.9-15.9); WHITE BLOOD COUNT 11.8 K/mm3 (4.0-10.0)
[2018-09-16 10:09] LABS: ALBUMIN 3.6 g/dl (3.4-5.0); ALK PHOS 62 U/L (45-117); ANION GAP 7 MMOL/L (8-16); BILIRUBIN,TOTAL 0.5 mg/dL (0.2-1); BLOOD UREA NITROGEN 10 mg/dL (7-18); CALCIUM 8.7 mg/dL (8.5-10.1); CHLORIDE 102 mmol/L (98-107); CO2 27 mmol/L (21-32); CREATININE 0.7 mg/dL (0.55-1.3); GLUCOSE,RANDOM 89 mg/dL (74-106); POTASSIUM 4.9 mmol/L (3.5-5.1); SGOT/AST 45 U/L (15-37); SGPT/ALT 24 U/L (13-61); SODIUM 136 mmol/L (136-145); TOT PROT 6.7 g/dl (6.4-8.2)
--- NOTE | 2018-09-16 10:15 | EKG ---
Test Reason : Blood Pressure : / mmHG Vent. Rate : 073 BPM Atrial Rate : 073 BPM P-R Int : 136 ms QRS Dur : 126 ms QT Int : 412 ms P-R-T Axes : 076 042 049 degrees QTc Int : 453 ms NORMAL SINUS RHYTHM RIGHT BUNDLE BRANCH BLOCK ABNORMAL ECG WHEN COMPARED WITH ECG OF 25-MAY-2018 17:00, RIGHT BUNDLE BRANCH BLOCK HAS REPLACED INCOMPLETE RIGHT BUNDLE BRANCH BLOCK Confirmed by DEMETRI RIVERA, RENE ([id number]) on 09/16/2018 10:14:53 AM Referred By: Confirmed By:RENE MOSQUERA MD
== END 2018-09-16 11:10 | disposition home or self-care (01) ==
LOC: JER 06:51
PROC: 3E033NZ Introduction of Analgesics, Hypnotics, Sedatives into Peripheral Vein, Percutaneous Approach (ICD-10-PCS; principal; 2018-09-16)
PROC: 3E0337Z Introduction of Electrolytic and Water Balance Substance into Peripheral Vein, Percutaneous Approach (ICD-10-PCS; 2018-09-16)
DX: F15.20 Other stimulant dependence, uncomplicated (principal); F17.210 Nicotine dependence, cigarettes, uncomplicated
CPT/HCPCS: 36415; 80053; 84484; 85027; 93005; 93010; 96361; 96374; 99282-25; J0131

== ENCOUNTER 2019-04-28 12:45 | Inpatient (IN) | payer OTHER | END 2019-05-01 19:09 | disposition home or self-care (01) | LOC: YASAS 12:45 → Y3N 20:58 ==

== ENCOUNTER 2019-05-01 20:40 | Emergency (ER) | payer OTHER ==
--- NOTE | 2019-05-02 00:09 | PDOC ---
Documentation entered by Jessica Donaldson SCRIBE, acting as scribe for Neetu Corrales MD. Neetu Corrales MD: This documentation has been prepared by the luannibeMendoza Natalie, SCRIBE, under my direction and personally reviewed by me in its entirety. I confirm that the documentation accurately reflects all work, treatment, procedures, and medical decision making performed by me. History of Present Illness - General Stated Complaint: ABDOMINAL PAIN Time Seen by Provider: 05/01/19 21:35 History Source: Patient Exam Limitations: No Limitations - History of Present Illness Initial Comments: 05/01/19 23:32 The patient is a 44-year-old male, with a past medical history of heroin, methamphetamine and opiate abuse, who presents to the ED with alcohol intoxication. The patient admitted to [facility] for detox and was kicked out for leaving the facility to smoke a cigarette. The patient has no where else to go because he is homeless. Denies having any other complaints. Past History - Past Medical History Allergies/Adverse Reactions: Allergies Allergy/AdvReac Type Severity Reaction Status Date / Time No Known Allergies Allergy Verified 04/28/19 18:46 Home Medications: Ambulatory Orders Sulfacetamide Sodium 10% [Bleph-10 Ophthalmic Solution -] 2 drop OS Q4H Anemia: No Asthma: No Cancer: No Cardiac Disorders: Yes (R bundle branch block) CVA: No COPD: No CHF: No Dementia: No Diabetes: No GI Disorders: No Disorders: No HTN: No Hypercholesterolemia: Yes (BUT NORMAL NOW; NO CURRENT MED) Kidney Stones: No Liver Disease: No Seizures: No Thyroid Disease: No - Surgical History Abdominal Surgery: No Appendectomy: No Cardiac Surgery: No Cholecystectomy: No Lung Surgery: No Neurologic Surgery: No Orthopedic Surgery: No - Reproductive History Testicular Surgery: No - Suicide/Smoking/Psychosocial Hx Smoking History: Unknown if ever smoked Have you smoked in the past 12 months: Yes Number of Cigarettes Smoked Daily: 20 'Breaking Loose' booklet given: 04/28/19 Hx Alcohol Use: Yes Drug/Substance Use Hx: Yes Substance Use Type: Alcohol, Cocaine, Heroin Hx Substance Use Treatment: Yes (detox, rehab, past Suboxone) Review of Systems - Review of Systems Able to Perform ROS?: Yes Comments:: 05/01/19 23:32 GENERAL/CONSTITUTIONAL: No fever or chills. No weakness. HEAD, EYES, EARS, NOSE AND THROAT: No change in vision. No ear pain or discharge. No sore throat. CARDIOVASCULAR: No chest pain or shortness of breath. RESPIRATORY: No cough, wheezing, or hemoptysis. GASTROINTESTINAL: No nausea, vomiting, diarrhea or constipation. GENITOURINARY: No dysuria, frequency, or change in urination. MUSCULOSKELETAL: No joint or muscle swelling or pain. No neck or back pain. SKIN: No rash NEUROLOGIC: No headache, vertigo, loss of consciousness, or change in strength/ sensation. ENDOCRINE: No increased thirst. No abnormal weight change. HEMATOLOGIC/LYMPHATIC: No anemia, easy bleeding, or history of blood clots. ALLERGIC/IMMUNOLOGIC: No hives or skin allergy. Constitutional: No: Chills, Diaphoresis HEENTM: No: Eye Pain, Blurred Vision Respiratory: No: Cough, Orthopnea Cardiac (ROS): No: Chest Pain, Edema : No: Burning, Dysuria Musculoskeletal: No: Back Pain, Gout, Joint Pain All Other Systems: Reviewed and Negative *Physical Exam - Physical Exam Comments: 05/01/19 23:33 GENERAL: Awake, alert, and fully oriented, in no acute distress HEAD: No signs of trauma EYES: PERRLA, EOMI, sclera anicteric, conjunctiva clear ENT: Auricles normal inspection, nares patent, oropharynx clear without exudates. Moist mucosa. NECK: Normal ROM, supple, no lymphadenopathy, JVD, or masses LUNGS: Breath sounds equal, clear to auscultation bilaterally. No wheezes, and no crackles HEART: Regular rate and rhythm, normal S1 and S2, no murmurs, rubs or gallops ABDOMEN: Soft, nontender, normoactive bowel sounds. No guarding, no rebound. No masses EXTREMITIES: Normal range of motion, no edema. No clubbing or cyanosis. No cords, erythema, or tenderness NEUROLOGICAL: Alert and oriented x 3. Moves all extremities. Face is symmetric. SKIN: Warm, Dry, normal turgor, no rashes or lesions noted Medical Decision Making - Medical Decision Making 05/02/19 00:09 44 yo recently kicked out of [facility], here because states no where to go. plan us tox, will call [facility] to see if can go back. 05/02/19 00:23 called [facility] to see if pt can return. 05/02/19 01:50 pt unable to return to [facility]. as left [facility]. policy is unabel to leave ground to smoke, pt left [facility] stated he wanted to smoke. will not accept pt back tp [facility] for detox. was admitted for 3 days. *DC/Admit/Observation/Transfer Diagnosis at time of Disposition: Alcohol dependence with uncomplicated withdrawal - Discharge Dispostion Disposition: HOME Condition at time of disposition: Good Decision to Admit order: No - Referrals Referrals: Ez Barragan MD [Staff Physician] - - Patient Instructions Printed Discharge Instructions: Alcohol Use Disorder Additional Instructions: you should avoid heavy alcohol intake. follow up with your primary doctor. return for any problems or concerns. - Post Discharge Activity
[2019-05-02 03:03] VITALS: BMI 27.9
[2019-05-02 03:48] LABS: COCAINE, UR NEGATIVE ng/ml (CUTOFF=300); METHADONE, UR NEGATIVE ng/ml (CUTOFF=300); OPIATES, URI NEGATIVE ng/ml (CUTOFF=300); PHENCYCLIDINE,URINE NEGATIVE ng/ml (CUTOFF=25); URINE AMPHETAMINES NEGATIVE ng/ml (CUTOFF=500); URINE BARBITURATES NEGATIVE ng/ml (CUTOFF=200)
[2019-05-02 03:51] LABS: URINE BENZODIAZEPINES POSITIVE ng/ml (CUTOFF=200)
[2019-05-02 03:54] LABS: BASO % 0.9 % (0-2.0); EOS % 1.4 % (0-4.5); HEMATOCRIT 43.7 % (35.4-49); LYMPH % 35.3 % (8-40); MCH 30.4 pg (25.7-33.7); MCHC 34.4 g/dl (32.0-35.9); MEAN CELL VOLUME 88.4 fl (80-96); MEAN PLT VOLUME 8.8 fl (7.5-11.1); MONO % 10.6 % (3.8-10.2); NEUT % 51.8 % (42.8-82.8); PLATELET COUNT 148 K/MM3 (134-434); RBC 4.94 M/mm3 (4.00-5.60); RDW 14.8 % (11.9-15.9); WHITE BLOOD COUNT 7.1 K/mm3 (4.0-10.0)
[2019-05-02 04:01] LABS: ALBUMIN 3.2 g/dl (3.4-5.0); BILIRUBIN,TOTAL 0.5 mg/dL (0.2-1); BLOOD UREA NITROGEN 15.5 mg/dL (7-18); CALCIUM 8.6 mg/dL (8.5-10.1); CREATININE 0.7 mg/dL (0.55-1.3); POTASSIUM 4.3 mmol/L (3.5-5.1); TOT PROT 6.1 g/dl (6.4-8.2)
[2019-05-02 06:56] VITALS: BP 107/65; PULSE 70; TEMP 98.1
== END 2019-05-02 06:30 | disposition home or self-care (01) ==
LOC: JER 20:40
DX: F10.220 Alcohol dependence with intoxication, uncomplicated (principal); Z59.0 Homelessness
CPT/HCPCS: 36415; 80053; 80307; 85025; 99283-25

== ENCOUNTER 2019-05-03 09:22 | Inpatient (IN) | payer OTHER | END 2019-05-08 17:00 | disposition left against medical advice (07) | LOC: Y5N 05-05 13:34 → YASAS 09:22 → Y5N 11:28 ==

== ENCOUNTER 2019-07-04 13:35 | Inpatient (IN) | payer OTHER ==
[2019-07-04 14:59] VITALS: BMI 30.4
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
[2019-07-04] MEDS ORDERED: P-EPHED 60MG/TRIPROLIDI 2.5MG TABLET PO PRN (16:06)
[2019-07-04] MEDS ORDERED: MAG HYDROX/AL HYDROX/SIMETH 30 ML UNIT-DOSE CUP PO PRN (16:06)
[2019-07-04] MEDS ORDERED: guaiFENesin 200 MG/10 ML 10 ML UNIT-DOSE CUPS PO PRN (16:06)
[2019-07-04] MEDS ORDERED: MAGNESIUM CITRATE 300 ML BOTTLE PO PRN (16:06)
[2019-07-04] MEDS ORDERED: hydrOXYzine PAMOATE 25 MG CAPSULE (FP) PO PRN (16:06)
[2019-07-04] MEDS ORDERED: MAGNESIUM HYDROX 2400MG/30ML ORAL SUSPENSION 30 ML CUP PO PRN (16:06)
[2019-07-04] MEDS ORDERED: MENTHOL/PHENOL 1 EACH UD MM PRN (16:06)
[2019-07-04] MEDS: NICOTINE 14 MG/24 HOURS TOPICAL PATCH TD SCH (17:29)
[2019-07-04] MEDS: BUPRENORPHINE/NALOXONE 8 MG/2 MG FILM PACKET SL SCH (17:29)
[2019-07-04] MEDS: IBUPROFEN 400 MG TABLET (FP) PO PRN (19:03)
[2019-07-04] MEDS: THIAMINE HCL 100 MG TABLET (FP) PO SCH (21:23)
[2019-07-04] MEDS ORDERED: MELATONIN 5 MG TABLETS PO PRN (22:00)
[2019-07-05] MEDS: IBUPROFEN 400 MG TABLET (FP) PO PRN ×3 (04:00→21:16)
[2019-07-05] MEDS ORDERED: LIDOCAINE VISCOUS 2% ORAL/TOP 20 ML UNIT-DOSE CUP MM PRN (07:49)
--- NOTE | 2019-07-05 08:14 | PN ---
S Progress Note Note: call by nurse Khushi Matt to see patient for the chip tooth alert,oriented x 3 Vital Signs Temperature 97.6 F 07/05/19 06:44 Pulse Rate 69 07/05/19 06:44 Respiratory Rate 18 07/05/19 06:44 Blood Pressure 101/74 07/05/19 06:44 O2 Sat by Pulse Oximetry (%) pain in the left upper tooth partial chip,cavity? no bleeding no swelling of the gum treatment motrin 400 mgs po prn for pain q 4 hrs xylocaine viscous 2% 15 mls q 6hrs prn for tooth pain advise to see own dentist for follow up and treatment
[2019-07-05] MEDS: PRENATAL VITAMINS W/ FOLIC ACID TABLET (FP) PO SCH (09:14)
[2019-07-05] MEDS: NICOTINE 14 MG/24 HOURS TOPICAL PATCH TD SCH (09:14)
[2019-07-05] MEDS: BUPRENORPHINE/NALOXONE 8 MG/2 MG FILM PACKET SL SCH (09:14)
[2019-07-05 11:16] LABS: HEMATOCRIT 43.9 % (35.4-49); HEMOGLOBIN 15.4 GM/dL (11.7-16.9); MCH 31.1 pg (25.7-33.7); MEAN CELL VOLUME 88.8 fl (80-96); MEAN PLT VOLUME 9.1 fl (7.5-11.1); PLATELET COUNT 165 K/MM3 (134-434); RBC 4.95 M/mm3 (4.00-5.60); RDW 13.4 % (11.9-15.9)
[2019-07-05 11:25] LABS: ALBUMIN 3.5 g/dl (3.4-5.0); BILIRUBIN,TOTAL 0.7 mg/dL (0.2-1); BLOOD UREA NITROGEN 19.2 mg/dL (7-18); CALCIUM 8.8 mg/dL (8.5-10.1); CREATININE 0.9 mg/dL (0.55-1.3); POTASSIUM 4.2 mmol/L (3.5-5.1); TOT PROT 6.4 g/dl (6.4-8.2)
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
[2019-07-05 17:16] LABS: HYALINE CASTS 4 /lpf (0-8); URINE APPEARANCE CLEAR; URINE BACTERIA 8.1 /hpf (NEGATIVE); URINE BILIRUBIN NEGATIVE (NEGATIVE); URINE COLOR YELLOW; URINE GLUCOSE (UA) NEGATIVE (NEGATIVE); URINE KETONE NEGATIVE (NEGATIVE); URINE LEUK ESTERASE TRACE (NEGATIVE); URINE NITRITE NEGATIVE (NEGATIVE); URINE PROTEIN NEGATIVE (NEGATIVE); URINE RBC 1 /hpf (0-4); URINE UROBILINOGEN 0.2 mg/dL (0.2-1.0); URINE WBC 6 /hpf (0-5)
[2019-07-05] MEDS: THIAMINE HCL 100 MG TABLET (FP) PO SCH (21:16)
[2019-07-05] MEDS: traZODone HCL 100 MG TABLET (FP) PO SCH (21:17)
[2019-07-05] MEDS: GABAPENTIN 300 MG CAPSULE (FP) PO SCH (21:17)
--- NOTE | 2019-07-06 10:07 | PN ---
S Progress Note Note: Pt states he needs another dose of Bupe- wakes up with withdrawal Sx in the morning: added 4mg in 10 pm
[2019-07-06] MEDS: NICOTINE 14 MG/24 HOURS TOPICAL PATCH TD SCH (10:13)
[2019-07-06] MEDS: PRENATAL VITAMINS W/ FOLIC ACID TABLET (FP) PO SCH (10:13)
[2019-07-06] MEDS: GABAPENTIN 300 MG CAPSULE (FP) PO SCH ×2 (10:13→21:26)
[2019-07-06] MEDS: BUPRENORPHINE/NALOXONE 8 MG/2 MG FILM PACKET SL SCH (10:13)
--- NOTE | 2019-07-06 15:31 | PN ---
BHS Progress Note Note: Pt seen by dentist for cracked tooth:note reviewed, recommended prn pain meds. Pt needs to f/u oral surgeon for removal
[2019-07-06] MEDS ORDERED: VITAMINS A AND D TOPICAL OINTMENT 60 GM TUBE TP PRN (15:32)
[2019-07-06] MEDS: traZODone HCL 100 MG TABLET (FP) PO SCH (21:26)
[2019-07-06] MEDS: THIAMINE HCL 100 MG TABLET (FP) PO SCH (21:27)
[2019-07-06] MEDS ORDERED: BUPRENORPHINE/NALOXONE 4 MG/1 MG FILM PACKET SL SCH (22:00)
[2019-07-07] MEDS: NICOTINE 14 MG/24 HOURS TOPICAL PATCH TD SCH (10:21)
[2019-07-07] MEDS: BUPRENORPHINE/NALOXONE 8 MG/2 MG FILM PACKET SL SCH (10:21)
[2019-07-07] MEDS: GABAPENTIN 300 MG CAPSULE (FP) PO SCH ×2 (10:21→21:15)
[2019-07-07] MEDS: PRENATAL VITAMINS W/ FOLIC ACID TABLET (FP) PO SCH (10:21)
--- NOTE | 2019-07-07 11:04 | PN ---
BHS COWS - Scale Resting Pulse: 0= MI 80 or Below Sweatin= No chills or Flushing Restless Observation: 0= Sits Still Pupil Size: 0= Normal to Room Light Bone or Joint Aches: 1= Mild Discomfort Runny Nose/ Eye Tearin= Nasal Congestion GI Upset > 30mins: 1= Stomach Cramp Tremor Observation of Outstretched Hands: 1= Tremor [place], Not Seen Yawning Observation: 0= None Anxiety or Irritability: 1=Feels Anxious/Irritable Goose Flesh Skin: 0=Smooth Skin COWS Score: 5 BHS Progress Note (SOAP) Subjective: patient states that 10pm suboxone dose is too late and he begins to feel cravings earlier. Pt has hx of suboxone tx of 24 mg/day. States he dose not want to be on that high a dose, but the present dosing schedule of 8mg at 10 am , 8mg at 5pm, and 4 mg at 10 pm is not working. Objective: P/E General: no apparent distress, see COWS HEENTM: normocephalic Neck: supple neuro: no neurological deficits noted skin: clear, warm, dry 07/07/19 11:01 Assessment: Mild heroin withdrawal symptoms 07/07/19 11:03 Plan: suboxone dosing changed to 8mg at 8am and 8mg at 3pm. Will continue to monitor and adjust if needed.
[2019-07-07] MEDS ORDERED: BUPRENORPHINE/NALOXONE 8 MG/2 MG FILM PACKET SL ONE (15:00)
[2019-07-07] MEDS: traZODone HCL 100 MG TABLET (FP) PO SCH (21:16)
[2019-07-07] MEDS: THIAMINE HCL 100 MG TABLET (FP) PO SCH (21:16)
[2019-07-08] MEDS: BUPRENORPHINE/NALOXONE 8 MG/2 MG FILM PACKET SL SCH ×2 (07:30→15:02)
[2019-07-08] MEDS: GABAPENTIN 300 MG CAPSULE (FP) PO SCH ×2 (10:08→21:34)
[2019-07-08] MEDS: NICOTINE 14 MG/24 HOURS TOPICAL PATCH TD SCH (10:08)
[2019-07-08] MEDS: PRENATAL VITAMINS W/ FOLIC ACID TABLET (FP) PO SCH (10:09)
[2019-07-08] MEDS ORDERED: PT OWN MED DRAWER 7, Y5N ONE ×2 (15:08→15:15)
[2019-07-08] MEDS: THIAMINE HCL 100 MG TABLET (FP) PO SCH (21:34)
[2019-07-08] MEDS: traZODone HCL 100 MG TABLET (FP) PO SCH (21:34)
[2019-07-09] MEDS: BUPRENORPHINE/NALOXONE 8 MG/2 MG FILM PACKET SL SCH ×2 (07:03→14:10)
[2019-07-09] MEDS: PRENATAL VITAMINS W/ FOLIC ACID TABLET (FP) PO SCH (09:11)
[2019-07-09] MEDS: NICOTINE 14 MG/24 HOURS TOPICAL PATCH TD SCH (09:11)
[2019-07-09] MEDS: GABAPENTIN 300 MG CAPSULE (FP) PO SCH ×2 (09:11→21:13)
[2019-07-09] MEDS: THIAMINE HCL 100 MG TABLET (FP) PO SCH (21:14)
[2019-07-09] MEDS: traZODone HCL 100 MG TABLET (FP) PO SCH (21:14)
[2019-07-10] MEDS: BUPRENORPHINE/NALOXONE 8 MG/2 MG FILM PACKET SL SCH ×2 (07:03→16:00)
[2019-07-10] MEDS: PRENATAL VITAMINS W/ FOLIC ACID TABLET (FP) PO SCH (09:59)
[2019-07-10] MEDS: GABAPENTIN 300 MG CAPSULE (FP) PO SCH ×2 (09:59→21:59)
[2019-07-10] MEDS: NICOTINE 14 MG/24 HOURS TOPICAL PATCH TD SCH (09:59)
[2019-07-10] MEDS: traZODone HCL 100 MG TABLET (FP) PO SCH (21:59)
[2019-07-10] MEDS: THIAMINE HCL 100 MG TABLET (FP) PO SCH (21:59)
[2019-07-11] MEDS: BUPRENORPHINE/NALOXONE 8 MG/2 MG FILM PACKET SL SCH ×2 (08:18→14:40)
[2019-07-11] MEDS: PRENATAL VITAMINS W/ FOLIC ACID TABLET (FP) PO SCH (09:30)
[2019-07-11] MEDS: GABAPENTIN 300 MG CAPSULE (FP) PO SCH ×2 (09:30→21:33)
[2019-07-11] MEDS: NICOTINE 14 MG/24 HOURS TOPICAL PATCH TD SCH (09:30)
[2019-07-11] MEDS: PANTOPRAZOLE 40 MG TABLET (FP) PO SCH (14:00)
--- NOTE | 2019-07-11 14:10 | PN ---
BHS Progress Note (SOAP) Subjective: Patient c/o diarrhea, abdominal discomfort, belching and flatus. PMHx of Hepatitis C. States his bowel movements are beige. Objective: CBC, BMP 07/05/19 08:10 07/05/19 08:10 Vital Signs (72 hours) 07/09/19 07/10/19 07/10/19 07:08 00:30 03:30 Temperature 98.1 F Pulse Rate 83 Respiratory 18 18 18 Rate Blood Pressure 124/68 07/10/19 07/11/19 07/11/19 06:46 00:28 03:30 Temperature 98.3 F Pulse Rate 69 Respiratory 18 18 18 Rate Blood Pressure 117/93 07/11/19 07/11/19 06:54 10:00 Temperature 98.7 F 98.7 F Pulse Rate 87 87 Respiratory 18 18 Rate Blood Pressure 128/67 128/67 07/11/19 14:09 07/11/19 14:10 P/E General: no apparent distress HEENTM: PERRLA, sclera clear, normocephalic Lungs: clear heart: s1, s2 ABD: obese, distended, +BS, non-tender, liver non-palpable, skin: color consistent throughout trunk and extremities, good skin turgor, no s/ s of liver disease Assessment: diarrhea, HEP C, GERD 07/11/19 14:13 Plan: Diarrhea- patient encouraged to take pepto-bismol as prescribed, HEP C- patient encouraged to follow up with GI specialist upon discharge; referred to counselor to make appointment at [facility] where patient was receiving care in the past for HEP C GERD:Gas-X ordered
[2019-07-11] MEDS ORDERED: SIMETHICONE 80 MG TAB.CHEW (FP) PO PRN (14:15)
[2019-07-11] MEDS: BISMUTH SUBSALICYLATE 262 MG/15 ML BTL PO PRN ×2 (15:59→21:34)
[2019-07-11] MEDS: THIAMINE HCL 100 MG TABLET (FP) PO SCH (21:33)
[2019-07-11] MEDS: traZODone HCL 100 MG TABLET (FP) PO SCH (21:33)
[2019-07-11] MEDS: BENZOCAINE 28 GM HEMORRHOIDAL OINTMENT RC SCH (21:34)
[2019-07-12] MEDS: BUPRENORPHINE/NALOXONE 8 MG/2 MG FILM PACKET SL SCH ×2 (07:59→15:37)
[2019-07-12] MEDS: BISMUTH SUBSALICYLATE 262 MG/15 ML BTL PO PRN (09:04)
[2019-07-12] MEDS: PANTOPRAZOLE 40 MG TABLET (FP) PO SCH (10:11)
[2019-07-12] MEDS: NICOTINE 14 MG/24 HOURS TOPICAL PATCH TD SCH (10:11)
[2019-07-12] MEDS: GABAPENTIN 300 MG CAPSULE (FP) PO SCH ×2 (10:11→21:30)
[2019-07-12] MEDS: PRENATAL VITAMINS W/ FOLIC ACID TABLET (FP) PO SCH (10:11)
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
--- NOTE | 2019-07-12 15:14 | PN ---
S Progress Note Note: Patient is scheduled for discharge tomorrow. Scripts for 30 days supply of medications(Gabapentin 600 mg/bid, Trazadone 100 mg/hs) will be electronically transmitted to [facility] at [address] [place], [place] [id number]
--- NOTE | 2019-07-12 16:15 | PN ---
BHS Progress Note Note: [facility] Rx for Suboxone 8mg/2mg sl bid electronically sent to [facility] [address] for continuation of CD aftercare referral treatment.
[2019-07-12] MEDS: BENZOCAINE 28 GM HEMORRHOIDAL OINTMENT RC SCH (21:29)
[2019-07-12] MEDS: traZODone HCL 100 MG TABLET (FP) PO SCH (21:29)
[2019-07-12] MEDS: THIAMINE HCL 100 MG TABLET (FP) PO SCH (21:30)
[2019-07-13 06:47] VITALS: BP 110/70; PULSE 69; TEMP 98.2
[2019-07-13] MEDS: BUPRENORPHINE/NALOXONE 8 MG/2 MG FILM PACKET SL SCH (07:47)
[2019-07-13] MEDS ORDERED: PT OWN MED DRAWER 7, Y5N ONE (08:14)
== END 2019-07-13 08:15 | disposition home or self-care (01) | DRG 772 ==
LOC: YASAS 13:35 → Y3W 16:39
PROVIDERS: ADMIT Neuromusculoskeletal Medicine & OMM; ATTEND Neuromusculoskeletal Medicine & OMM
PROC: HZ42ZZZ Group Counseling for Substance Abuse Treatment, Cognitive-Behavioral (ICD-10-PCS; principal; 2019-07-04)
DX: F11.20 Opioid dependence, uncomplicated (principal); F10.20 Alcohol dependence, uncomplicated; F14.20 Cocaine dependence, uncomplicated; F12.20 Cannabis dependence, uncomplicated; F17.210 Nicotine dependence, cigarettes, uncomplicated; F19.280 Other psychoactive substance dependence with psychoactive substance-induced anxiety disorder; F19.282 Other psychoactive substance dependence with psychoactive substance-induced sleep disorder; F41.1 Generalized anxiety disorder; F32.9 Major depressive disorder, single episode, unspecified; F90.9 Attention-deficit hyperactivity disorder, unspecified type; E78.5 Hyperlipidemia, unspecified; K21.9 Gastro-esophageal reflux disease without esophagitis; B18.2 Chronic viral hepatitis C; K08.89 Other specified disorders of teeth and supporting structures; Z86.79 Personal history of other diseases of the circulatory system; Z59.0 Homelessness
CPT/HCPCS: 36415; 71046-TC-FY; 80053; 81003; 82962; 85027; 86593

== ENCOUNTER 2019-12-06 14:40 | Inpatient (IN) | payer OTHER ==
--- NOTE | 2019-12-06 15:13 | BHS.RME ---
Substance Use & Tx History - Substance Use History Opiates (Heroin) Substance amount: 3-4 bags Frequency of use: Daily Substance route: Inhalation (ex: sniffing or snorting) Date of Last Use: 12/06/19 Alcohol Substance amount: 1 pint Vodka Frequency of use: Less than 3 times per week Substance route: Oral Date of Last Use: 12/05/19 Cannabis Substance amount: few drags Frequency of use: Less than 3 times per week Substance route: Smoking Date of Last Use: 12/06/19 Cocaine (Crack) Substance amount: $60 per week Frequency of use: Less than 3 times per week Substance route: Smoking Date of Last Use: 12/03/19 - Last Treatment Treatment type: Substance Use Disorder (GARTH) Physical/Psych/Mental Status - Behavior General Behavior: Increased activity (restlessness, agitation) Eye Contact: Normal - Cooperativeness Cooperativeness: Cooperative - Thinking Thought Processes: Tight Thought content: Future oriented - Physical Health Problems Is patient presently having any pain?: No Does patient presently have any injuries (include location): No Does patient currently have a fever: No Is patient : No COWS - Scale Resting Pulse: 1= [place] 81-100 Sweatin= No chills or Flushing Restless Observation: 1= Difficult to Sit Still Pupil Size: 0= Normal to Room Light Bone or Joint Aches: 0= None Runny Nose/ Eye Tearin= None GI Upset > 30mins: 0= None Tremor Observation: 1= Tremor [place], Not Seen Yawning Observation: 0= None Anxiety or Irritability: 1=Feels Anxious/Irritable Goose Flesh Skin: 0=Smooth Skin COWS Score: 4 CIWA Nausea/Vomitin-No Nausea/No Vomiting Muscle Tremors: 3 Anxiety: 2 Agitation: 2 Paroxysmal Sweats: 4-Forehead w/Sweat Beads Orientation: 0-Oriented Tacttile Disturbances: 0-None Auditory Disturbances: 0-None Visual Disturbances: 0-None Headache: 0-None Present (Meets detox criteria: comorbid medical/psychiatric, poor recovery environment, high risk relapse) CIWA-Ar Total Score: 11
--- NOTE | 2019-12-06 18:29 | HP ---
COWS - Scale Resting Pulse: 1= OR 81-100 Sweatin= No chills or Flushing Restless Observation: 1= Difficult to Sit Still Pupil Size: 0= Normal to Room Light Bone or Joint Aches: 0= None Runny Nose/ Eye Tearin= None GI Upset > 30mins: 0= None Tremor Observation: 1= Tremor [place], Not Seen Yawning Observation: 0= None Anxiety or Irritability: 1=Feels Anxious/Irritable Goose Flesh Skin: 0=Smooth Skin COWS Score: 4 CIWA Score Nausea/Vomitin-No Nausea/No Vomiting Muscle Tremors: None Anxiety: 2 Agitation: 2 Paroxysmal Sweats: No Perspiration Orientation: 0-Oriented Tacttile Disturbances: 0-None Auditory Disturbances: 0-None Visual Disturbances: 0-None Headache: 0-None Present CIWA-Ar Total Score: 4 - Admission Criteria OASAS Guidelines: Admission for Medically Managed Detox: Requires at least one of the followin. CIWA greater than 12 2. Seizures within the past 24 hours 3. Delirium tremens within the past 24 hours 4. Hallucinations within the past 24 hours 5. Acute intervention needed for co occurring medical disorder 6. Acute intervention needed for co occurring psychiatric disorder 7. Severe withdrawal that cannot be handled at a lower level of care (continued vomiting, continued diarrhea, abnormal vital signs) requiring intravenous medication and/or fluids 8. Patient presents the following: None of the above Admission Criteria Met: Admission criteria not met Admitting History and Physical - Smoking History Smoking history: Unknown if ever smoked Have you smoked in the past 12 months: Yes Aproximately how many cigarettes per day: 20 - Alcohol/Substance Use Hx Alcohol Use: Yes Admission [facility] Allergies/Adverse Reactions: Allergies Allergy/AdvReac Type Severity Reaction Status Date / Time No Known Allergies Allergy Verified 12/06/19 19:32 History of Present Illness: Patient Name: Lazaro Thapa Date: 1975 Address: [place] [address] Sex: Male Rx Written Rx Dispensed Drug Quantity Days Supply Prescriber Name Payment Method Dispenser suboxone 4 mg-1 mg sl film 30 30 Federico [facility] buprenorphine-naloxone 8-2 mg sl film 28 14 Sandra Montero NP Medicaid [facility] Patient Name: Lazaro Thapa Date: 1975 [facility] [place] [address] Sex: Male Rx Written Rx Dispensed Drug Quantity Days Supply Prescriber Name Payment Method Dispenser buprenorphine 8 mg tablet sl [address] [facility] Patient Name: Lazaro Thapa Date: 1975 Address: [address] [place] [id number] Sex: Male Rx Written Rx Dispensed Drug Quantity Days Supply Prescriber Name Payment Method Dispenser buprenorphine-naloxone 8-2 mg sl film 18 6 Suzie Holcomb MD [facility] buprenorphine-naloxone 8-2 mg sl film 84 28 Suzie Holcomb MD [facility] buprenorphine-naloxone 8-2 mg sl film 84 28 Suzie Holcomb MD [facility] Patient Name: Lazaro Thapa Date: 1975 Address: [place] [address] Sex: Male Rx Written Rx Dispensed Drug Quantity Days Supply Prescriber Name Payment Method Dispenser dextroamp-amphetamin 30 mg tab 60 30 Concha Benites MD [facility] dextroamp-amphetamin 30 mg tab 30 30 Concha Benites MD [facility] dextroamp-amphetamin 20 mg tab 30 30 Concha Benites MD [facility], [facility] Patient Name: Lazaro Thapa Date: 1975 Address: [facility] [place] [address] Sex: Male Rx Written Rx Dispensed Drug Quantity Days Supply Prescriber Name Payment Method Dispenser buprenorphine-naloxone 8-2 mg sl film 63 21 Suzie Holcomb MD Medicaid [facility] [id number] buprenorphine-naloxone 8-2 mg sl film 48 16 Suzie Holcomb MD Medicaid [facility] [id number] pt here requesting detox from opiate use , reports relapse 2-3 weeks ago , claims he is using 2-3 bags /day , latest use this morning , currently reports feeling tired. reports used to drink more alcohol, now sporadic " maybe once a week " latest use yesterday 1 pint , 6 beers Wednesday and Wednesday of last week utox + thc , BUP negative for opiates. Exam Limitations: No Limitations - Review of Systems Constitutional: No Symptoms Reported EENT: reports: No Symptoms Reported, Other (denies dysphagia) Respiratory: reports: No Symptoms reported Cardiac: reports: No Symptoms Reported GI: reports: No Symptoms Reported : reports: No Symptoms Reported Musculoskeletal: reports: No Symptoms Reported Integumentary: reports: Dryness, Pruritus (legs) Neuro: reports: No Symptoms reported Endocrine: reports: No Symptoms Reported Psychiatric: reports: Orientated x3, Agitated, Anxious Patient History - Patient Medical History Hx Anemia: No Hx Asthma: No Hx Chronic Obstructive Pulmonary Disease (COPD): No Hx Cancer: No Hx Cardiac Disorders: Yes (R bundle branch block) Hx Congestive Heart Failure: No Hx Hypertension: No Hx Hypercholesterolemia: Yes (BUT NORMAL NOW; NO CURRENT MED) Hx Pacemaker: No HX Cerebrovascular Accident: No Hx Seizures: No Hx Dementia: No Hx Diabetes: No Hx Gastrointestinal Disorders: No Hx Liver Disease: No Hx Genitourinary Disorders: No Hx Sexually Transmitted Disorders: No (DENIES) Hx Renal Disease (ESRD): No Hx Thyroid Disease: No Hx Human Immunodeficiency Virus (HIV): No (negative 02/19) Hx Hepatitis C: Yes (no treatment follow up with [facility]) Hx Depression: Yes (AND ANXIETY DUE TO DRUGS) Hx Suicide Attempt: No (DENIES S/I) Hx Bipolar Disorder: No Hx Schizophrenia: No - Patient Surgical History Past Surgical History: No Hx Neurologic Surgery: No Hx Cataract Extraction: No Hx Cardiac Surgery: No Hx Lung Surgery: No Hx Breast Surgery: No Hx Breast Biopsy: No Hx Abdominal Surgery: No Hx Appendectomy: No Hx Cholecystectomy: No Hx Genitourinary Surgery: No Hx Section: No Hx Orthopedic Surgery: No Anesthesia Reaction: No - PPD History Date: 10/10/17 Results: 0 mm - Smoking Cessation Smoking history: Unknown if ever smoked Have you smoked in the past 12 months: Yes Aproximately how many cigarettes per day: 20 Hx Chewing Tobacco Use: No - Substances abused Marijuana/Hashish Substance route: Smoking Frequency: 1-2 times per week Amount used: a couple drags Age of first use: 13 Date of last use: 12/05/19 Buprenorphine Substance route: Oral Frequency: 1-2 times per week Amount used: 12 mg Age of first use: 43 Date of last use: 12/05/19 Admission Physical Exam [facility] - Physical General Appearance: Yes: Anxious HEENTM: Yes: EOMI, Hearing grossly Normal, Normocephalic, Normal Voice Respiratory: Yes: Chest Non-Tender, Lungs Clear, Normal Breath Sounds, No Respiratory Distress, No Accessory Muscle Use Neck: Yes: No masses,lesions,Nodules, Trachea in good position Cardiology: Yes: Regular Rhythm, Regular Rate, S1, S2 Abdominal: Yes: Non Tender, Soft Back: Yes: Normal Inspection Musculoskeletal: Yes: Gait Steady Extremities: Yes: Normal Range of Motion, Non-Tender Neurological: Yes: Alert, Motor Strength 5/5 Integumentary: Yes: Dry, Warm - Addiitonal Findings: utox negative for opiates , + BUP , reports he took 12 mg Buprenorphine yesterday , agreeable to transfer to rehab in a.m. - Diagnostic (1) Nicotine dependence Current Visit: Yes Status: Chronic Qualifiers: Nicotine product type: cigarettes (2) Opioid dependence Current Visit: Yes Status: Chronic Qualifiers: Substance use status: uncomplicated Qualified Code(s): F11.20 - Opioid dependence, uncomplicated Breathalyzer - Breathalyzer Breathalyzer: 0 Urine Drug Screen - Test Device Lot number: [id number] Expiration date: 09/02/21 - Control Is test valid?: Yes - Results Drug screen NEGATIVE: No Urine drug screen results: THC-Marijuana, BUP-Suboxone Inpatient Rehab Admission - Rehab Decision to Admit Inpatient rehab admission?: No
[2019-12-06] MEDS ORDERED: traZODone HCL 100 MG TABLET (FP) PO PRN (18:46)
[2019-12-06] MEDS ORDERED: ACETAMINOPHEN 325 MG TABLET (FP) PO PRN ×2 (18:46)
[2019-12-06] MEDS ORDERED: MENTHOL/PHENOL 1 EACH UD MM PRN (18:46)
[2019-12-06] MEDS ORDERED: MAGNESIUM CITRATE 300 ML BOTTLE PO PRN (18:46)
[2019-12-06] MEDS ORDERED: METHOCARBAMOL 500 MG TABLET PO PRN (18:46)
[2019-12-06] MEDS ORDERED: IBUPROFEN 400 MG TABLET (FP) PO PRN (18:46)
[2019-12-06] MEDS ORDERED: ONDANSETRON *ODT* 4 MG TABLET SL ONE (18:46)
[2019-12-06] MEDS ORDERED: BISMUTH SUBSALICYLATE 524 MG/30 ML UD PO PRN (18:46)
[2019-12-06] MEDS ORDERED: MAGNESIUM HYDROX 2400MG/30ML ORAL SUSPENSION 30 ML CUP PO PRN (18:46)
[2019-12-06] MEDS ORDERED: NICOTINE POLACRILEX 2 MG GUM BUC PRN (18:46)
[2019-12-06] MEDS ORDERED: diphenhydrAMINE HCL 25 MG CAPSULE (FP) PO ONE (18:48)
[2019-12-06] MEDS ORDERED: cloNIDine HCL 0.1 MG TABLET PO PRN (18:49)
[2019-12-06 19:48] VITALS: BMI 32.8
[2019-12-06] MEDS: hydrOXYzine PAMOATE 25 MG CAPSULE (FP) PO SCH (21:01)
[2019-12-06] MEDS: GABAPENTIN 300 MG CAPSULE PO SCH (21:01)
[2019-12-06] MEDS: THIAMINE HCL 100 MG TABLET (FP) PO SCH (21:01)
[2019-12-06] MEDS: MELATONIN 5 MG TABLETS PO SCH (21:02)
[2019-12-06] MEDS ORDERED: GABAPENTIN 100 MG CAPSULE PO SCH (22:00)
[2019-12-07] MEDS: hydrOXYzine PAMOATE 25 MG CAPSULE (FP) PO SCH ×5 (05:20→22:41)
[2019-12-07] MEDS: NICOTINE 7 MG/24 HOURS TOPICAL PATCH TD SCH (10:27)
[2019-12-07] MEDS: PRENATAL VITAMINS W/ FOLIC ACID TABLET (FP) PO SCH (10:27)
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
[2019-12-07 13:10] LABS: HEMOGLOBIN 15.8 GM/dL (11.7-16.9); MCH 30.9 pg (25.7-33.7); MCHC 34.4 g/dl (32.0-35.9); PLATELET COUNT 199 K/MM3 (134-434); RBC 5.11 M/mm3 (4.00-5.60); RDW 13.6 % (11.9-15.9); WHITE BLOOD COUNT 6.6 K/mm3 (4.0-10.0)
[2019-12-07 13:22] LABS: ALBUMIN 3.7 g/dl (3.4-5.0); BILIRUBIN,TOTAL 0.7 mg/dL (0.2-1); BLOOD UREA NITROGEN 11.9 mg/dL (7-18); CALCIUM 9.2 mg/dL (8.5-10.1); CREATININE 0.9 mg/dL (0.55-1.3); POTASSIUM 4.4 mmol/L (3.5-5.1); TOT PROT 6.6 g/dl (6.4-8.2)
--- NOTE | 2019-12-07 13:50 | PN ---
[facility] CIWA - CIWA Score Nausea/Vomitin-No Nausea/No Vomiting Muscle Tremors: 1-None Visible, but [place] Anxiety: 0-No Anxiety, at Ease Agitation: 0-Normal Activity Paroxysmal Sweats: No Perspiration Orientation: 0-Oriented Tacttile Disturbances: 0-None Auditory Disturbances: 0-None Visual Disturbances: 1-Very Mild Sensitivity Headache: 0-None Present CIWA-Ar Total Score: 2 S COWS - Scale Resting Pulse: 0= [place] 80 or Below Sweatin= No chills or [place] Restless Observation: 0= Sits Still Pupil Size: 1= Pupils >than Normal Bone or Joint Aches: 0= None Runny Nose/ Eye Tearin= None GI Upset > 30mins: 0= None Tremor Observation of Outstretched Hands: 0= None Yawning Observation: 0= None Anxiety or Irritability: 1=Feels Anxious/Irritable Goose Flesh Skin: 0=Smooth Skin COWS Score: 2 S Progress Note (SOAP) Subjective: 44 years old homeless man from [place] has long history of psychiatric issues with multiple psychiatric hospitalization completed detox in [facility] restated Medicaid insurance according to the counselor that the insurance effect on 12/08/19 first option to [facility] second available option [facility] Objective: 12/07/19 15:53 Vital Signs Temperature 97.7 F 12/07/19 12:40 Pulse Rate 75 12/07/19 12:40 Respiratory Rate 20 12/07/19 12:40 Blood Pressure 112/75 12/07/19 12:40 O2 Sat by Pulse Oximetry (%) Laboratory Last Values WBC 6.6 K/mm3 (4.0-10.0) 12/07/19 09:00 RBC 5.11 M/mm3 (4.00-5.60) 12/07/19 09:00 Hgb 15.8 GM/dL (11.7-16.9) 12/07/19 09:00 Hct 46.0 % (35.4-49) 12/07/19 09:00 MCV 90.0 fl (80-96) 12/07/19 09:00 MCH 30.9 pg (25.7-33.7) 12/07/19 09:00 MCHC 34.4 g/dl (32.0-35.9) 12/07/19 09:00 RDW 13.6 % (11.9-15.9) 12/07/19 09:00 Plt Count 199 K/MM3 (134-434) D 12/07/19 09:00 MPV 9.0 fl (7.5-11.1) 12/07/19 09:00 Sodium 143 mmol/L (136-145) 12/07/19 09:00 Potassium 4.4 mmol/L (3.5-5.1) 12/07/19 09:00 Chloride 107 mmol/L (98-107) 12/07/19 09:00 Carbon Dioxide 30 mmol/L (21-32) 12/07/19 09:00 Anion Gap 6 MMOL/L (8-16) L 12/07/19 09:00 BUN 11.9 mg/dL (7-18) 12/07/19 09:00 Creatinine 0.9 mg/dL (0.55-1.3) 12/07/19 09:00 Est GFR (CKD-EPI)AfAm 120.81 12/07/19 09:00 Est GFR (CKD-EPI)NonAf 104.24 12/07/19 09:00 Random Glucose 143 mg/dL (74-106) H 12/07/19 09:00 Calcium 9.2 mg/dL (8.5-10.1) 12/07/19 09:00 Total Bilirubin 0.7 mg/dL (0.2-1) 12/07/19 09:00 AST 35 U/L (15-37) 12/07/19 09:00 ALT 74 U/L (13-61) H 12/07/19 09:00 Alkaline Phosphatase 67 U/L (45-117) 12/07/19 09:00 Total Protein 6.6 g/dl (6.4-8.2) 12/07/19 09:00 Albumin 3.7 g/dl (3.4-5.0) 12/07/19 09:00 RPR Titer Nonreactive (NONREACTIVE) 12/07/19 09:00 glucose elevation fasting glucose lab noted 12/07/19 15:55 Assessment: 12/07/19 15:55 mental health stability with high risk relapse Plan: medically observation with proper aftercare arrangement
[2019-12-07] MEDS: MAG HYDROX/AL HYDROX/SIMETH 30 ML UNIT-DOSE CUP PO PRN (21:38)
[2019-12-07] MEDS: THIAMINE HCL 100 MG TABLET (FP) PO SCH (22:40)
[2019-12-07] MEDS: traZODone HCL 100 MG TABLET (FP) PO SCH (22:41)
[2019-12-07] MEDS: MELATONIN 5 MG TABLETS PO SCH (22:41)
[2019-12-07] MEDS: GABAPENTIN 300 MG CAPSULE PO SCH (22:41)
[2019-12-08] MEDS: hydrOXYzine PAMOATE 25 MG CAPSULE (FP) PO SCH ×5 (05:12→22:29)
[2019-12-08] MEDS: MAG HYDROX/AL HYDROX/SIMETH 30 ML UNIT-DOSE CUP PO PRN (09:27)
[2019-12-08] MEDS: NICOTINE 7 MG/24 HOURS TOPICAL PATCH TD SCH (10:08)
[2019-12-08] MEDS: PRENATAL VITAMINS W/ FOLIC ACID TABLET (FP) PO SCH (10:09)
--- NOTE | 2019-12-08 11:41 | PN ---
[facility] CIWA - CIWA Score Nausea/Vomitin-No Nausea/No Vomiting Muscle Tremors: None Anxiety: 0-No Anxiety, at Ease Agitation: 0-Normal Activity Paroxysmal Sweats: No Perspiration Orientation: 0-Oriented Tacttile Disturbances: 0-None Auditory Disturbances: 0-None Visual Disturbances: 0-None Headache: 0-None Present CIWA-Ar Total Score: 0 [facility] COWS - Scale Resting Pulse: 0= [place] 80 or Below Sweatin= No chills or [place] Restless Observation: 0= Sits Still Pupil Size: 0= Normal to Room Light Bone or Joint Aches: 0= None Runny Nose/ Eye Tearin= None GI Upset > 30mins: 0= None Tremor Observation of Outstretched Hands: 0= None Yawning Observation: 0= None Anxiety or Irritability: 0= None Goose Flesh Skin: 0=Smooth Skin COWS Score: 0 [facility] Progress Note (SOAP) Subjective: Pt states he has no withdrawal sx Objective: 12/08/19 11:39 Laboratory Tests 12/07/19 12/07/19 12/07/19 09:00 09:00 09:00 WBC 6.6 RBC 5.11 Hgb 15.8 Hct 46.0 MCV 90.0 MCH 30.9 MCHC 34.4 RDW 13.6 Plt Count 199 D MPV 9.0 Sodium 143 Potassium 4.4 Chloride 107 Carbon Dioxide 30 Anion Gap 6 L BUN 11.9 Creatinine 0.9 Est GFR (CKD-EPI)AfAm 120.81 Est GFR (CKD-EPI)NonAf 104.24 Random Glucose 143 H Fasting Glucose Calcium 9.2 Total Bilirubin 0.7 AST 35 ALT 74 H Alkaline Phosphatase 67 Total Protein 6.6 Albumin 3.7 RPR Titer Nonreactive 12/08/19 07:45 WBC RBC Hgb Hct MCV MCH MCHC RDW Plt Count MPV Sodium Potassium Chloride Carbon Dioxide Anion Gap BUN Creatinine Est GFR (CKD-EPI)AfAm Est GFR (CKD-EPI)NonAf Random Glucose Fasting Glucose 122 H Calcium Total Bilirubin AST ALT Alkaline Phosphatase Total Protein Albumin RPR Titer Vital Signs - 24 hr 12/07/19 12/07/19 12/07/19 12:40 16:39 20:38 Temperature 97.7 F 97.9 F 98.0 F Pulse Rate 75 67 78 Respiratory 20 18 18 Rate Blood Pressure 112/75 115/77 111/81 12/08/19 12/08/19 12/08/19 00:30 06:23 06:42 Temperature 96.7 F L Pulse Rate 60 Respiratory 16 18 16 Rate Blood Pressure 102/67 12/08/19 08:54 Temperature 97.6 F Pulse Rate 72 Respiratory 18 Rate Blood Pressure 110/78 PE Gnl; WDWN, in bed Mental status: sleepy, easily aroused Motor: moves limbs well Assessment: 12/08/19 11:40 1. Alcohol use disorder 2. Opioid use disorder Plan: 1. will need to be discharged to a facility that accepts pt without insurance such as [facility], can not go to [facility] at this time, insurance still not active.
[2019-12-08] MEDS: GABAPENTIN 300 MG CAPSULE PO SCH (22:29)
[2019-12-08] MEDS: MELATONIN 5 MG TABLETS PO SCH (22:29)
[2019-12-08] MEDS: THIAMINE HCL 100 MG TABLET (FP) PO SCH (22:29)
[2019-12-08] MEDS: traZODone HCL 100 MG TABLET (FP) PO SCH (22:30)
[2019-12-09] MEDS: hydrOXYzine PAMOATE 25 MG CAPSULE (FP) PO SCH ×3 (06:53→14:31)
[2019-12-09 09:16] VITALS: TEMP 97.4
[2019-12-09] MEDS: PRENATAL VITAMINS W/ FOLIC ACID TABLET (FP) PO SCH (11:25)
[2019-12-09] MEDS: NICOTINE 7 MG/24 HOURS TOPICAL PATCH TD SCH (11:25)
--- NOTE | 2019-12-09 11:50 | PN ---
[facility] Progress Note Note: Received pt in bed alert and verbally responsive and in no acute respiratory distress. Denies any withdrawal symptoms. Pt was admitted on 12/06/19 for rehab but due to bed unavailability was sent to detox unit awaiting rehab bed. Pt is not on any detox protocol. No rehab bed available in [facility] at the moment. Pt was advised to go home and come back to be admitted to Rehab but states he is homeless. Case discussed with counsellor on-call to see what can be done for the pt.
[2019-12-09 13:13] VITALS: BP 124/84; PULSE 74
--- NOTE | 2019-12-09 15:21 | DS ---
[facility] Detox Discharge Summary Admission Date: 12/06/19 Discharge Date: 12/09/19 - History Present History: Alcohol Dependence, Cannabis Dependence, Opioid Dependence Additional Comments: As per H&P: "pt here requesting detox from opiate use , reports relapse 2-3 weeks ago , claims he is using 2-3 bags /day , latest use this morning , currently reports feeling tired. reports used to drink more alcohol, now sporadic " maybe once a week " latest use yesterday 1 pint , 6 beers Wednesday and Wednesday of last week utox + thc , BUP negative for opiates". Pt is medically cleared and discharged to [facility] rehab [address] [place] [address] for c ontinued management. Pt completed the detox protocol. Pt is encouraged to follow with the rehab protocol. Pt verbalized understanding of the information given. Pt is alert and oriented x3 and in no acute respiratory distress. Pertinent Past History: h/o alcohol, heroin, and cocaine use disorder. - Physical Exam Results Vital Signs: Vital Signs Temperature 97.4 F L 12/09/19 12:49 Pulse Rate 74 12/09/19 12:49 Respiratory Rate 18 12/09/19 12:49 Blood Pressure 124/84 12/09/19 12:49 O2 Sat by Pulse Oximetry (%) Vital Signs 12/09/19 12/09/19 09:04 12:49 Temperature 97.4 F L 97.4 F L Pulse Rate 65 74 Respiratory 18 18 Rate Blood Pressure 108/74 124/84 Laboratory Last Values WBC 6.6 K/mm3 (4.0-10.0) 12/07/19 09:00 RBC 5.11 M/mm3 (4.00-5.60) 12/07/19 09:00 Hgb 15.8 GM/dL (11.7-16.9) 12/07/19 09:00 Hct 46.0 % (35.4-49) 12/07/19 09:00 MCV 90.0 fl (80-96) 12/07/19 09:00 MCH 30.9 pg (25.7-33.7) 12/07/19 09:00 MCHC 34.4 g/dl (32.0-35.9) 12/07/19 09:00 RDW 13.6 % (11.9-15.9) 12/07/19 09:00 Plt Count 199 K/MM3 (134-434) D 12/07/19 09:00 MPV 9.0 fl (7.5-11.1) 12/07/19 09:00 Sodium 143 mmol/L (136-145) 12/07/19 09:00 Potassium 4.4 mmol/L (3.5-5.1) 12/07/19 09:00 Chloride 107 mmol/L (98-107) 12/07/19 09:00 Carbon Dioxide 30 mmol/L (21-32) 12/07/19 09:00 Anion Gap 6 MMOL/L (8-16) L 12/07/19 09:00 BUN 11.9 mg/dL (7-18) 12/07/19 09:00 Creatinine 0.9 mg/dL (0.55-1.3) 12/07/19 09:00 Est GFR (CKD-EPI)AfAm 120.81 12/07/19 09:00 Est GFR (CKD-EPI)NonAf 104.24 12/07/19 09:00 Random Glucose 143 mg/dL (74-106) H 12/07/19 09:00 Fasting Glucose 122 mg/dL (74-106) H 12/08/19 07:45 Calcium 9.2 mg/dL (8.5-10.1) 12/07/19 09:00 Total Bilirubin 0.7 mg/dL (0.2-1) 12/07/19 09:00 AST 35 U/L (15-37) 12/07/19 09:00 ALT 74 U/L (13-61) H 12/07/19 09:00 Alkaline Phosphatase 67 U/L (45-117) 12/07/19 09:00 Total Protein 6.6 g/dl (6.4-8.2) 12/07/19 09:00 Albumin 3.7 g/dl (3.4-5.0) 12/07/19 09:00 RPR Titer Nonreactive (NONREACTIVE) 12/07/19 09:00 Labs noted. Pertinent Admission Physical Exam Findings: withdrawal symptoms. - Treatment Hospital Course: Detox Protocol Followed, Detoxed Safely, Responded well, Discharged Condition Good, Rehab Referral Accepted Patient has Accepted a Rehab Referral to: [address] - Medication Discharge Medications: Ambulatory Orders traZODone HCL [Desyrel -] 100 mg PO HS #30 tablet 07/12/19 Citalopram Hydrobromide [Citalopram HBr] 10 mg PO DAILY 12/06/19 Duloxetine HCl 30 mg PO BID 12/06/19 Folic Acid - 1 mg PO DAILY 12/06/19 Gabapentin Enacarbil [Horizant] 300 mg PO HS 12/06/19 Multivitamin,Therapeutic [Thera] 1 each PO DAILY 12/06/19 Thiamine HCl [Vitamin B-1] 100 mg PO DAILY 12/06/19 - Diagnosis (1) Nicotine dependence Current Visit: Yes Status: Chronic Qualifiers: Nicotine product type: cigarettes (2) Opioid dependence Current Visit: Yes Status: Chronic Qualifiers: Substance use status: uncomplicated Qualified Code(s): F11.20 - Opioid dependence, uncomplicated (3) Cocaine abuse Current Visit: No Status: Acute (4) Cannabis dependence Current Visit: No Status: Chronic (5) Cocaine dependence, uncomplicated Current Visit: No Status: Chronic (6) Nicotine dependence Current Visit: No Status: Chronic Qualifiers: Nicotine product type: cigarettes Substance use status: in withdrawal Qualified Code(s): F17.213 - Nicotine dependence, cigarettes, with withdrawal - AMA Did Patient Leave Against Medical Advice: No
== END 2019-12-09 14:59 | disposition other institution (70) | DRG 773 ==
LOC: YASAS 14:40 → Y3N 19:55
PROVIDERS: ADMIT Allergy & Immunology; ATTEND Allergy & Immunology
PROC: HZ2ZZZZ Detoxification Services for Substance Abuse Treatment (ICD-10-PCS; principal; 2019-12-06)
DX: F11.23 Opioid dependence with withdrawal (principal); F10.230 Alcohol dependence with withdrawal, uncomplicated; F14.20 Cocaine dependence, uncomplicated; F12.20 Cannabis dependence, uncomplicated; F17.210 Nicotine dependence, cigarettes, uncomplicated; F19.24 Other psychoactive substance dependence with psychoactive substance-induced mood disorder; F32.9 Major depressive disorder, single episode, unspecified; F41.9 Anxiety disorder, unspecified; B18.2 Chronic viral hepatitis C; I45.10 Unspecified right bundle-branch block; Z91.14 Patient's other noncompliance with medication regimen; Z56.0 Unemployment, unspecified; Z59.0 Homelessness
CPT/HCPCS: 36415; 80053; 82947; 85027; 86593; Q0162

== ENCOUNTER 2020-03-26 08:08 | Inpatient (IN) | payer OTHER ==
--- NOTE | 2020-03-26 09:10 | BHS.RME ---
Substance Use & Tx History - Substance Use History Alcohol Substance amount: 1 quart vodka Frequency of use: Daily Substance route: Oral Date of Last Use: 03/26/20 Cocaine- Powder Substance amount: 1 gram Substance route: Inhalation (ex: sniffing or snorting), Injection (ex: intravenous or skin popping) Date of Last Use: 03/24/20 Marijuana/Hashish Substance amount: 1 joint Frequency of use: Daily Substance route: Smoking Date of Last Use: 03/25/20 PCP Substance amount: $20-30 Frequency of use: Daily Substance route: Smoking Date of Last Use: 03/25/20 CIWA Nausea/Vomitin-Mild Nausea/No Vomiting Muscle Tremors: 3 Anxiety: 3 Agitation: 3 Paroxysmal Sweats: No Perspiration Orientation: 0-Oriented Tacttile Disturbances: 0-None Auditory Disturbances: 0-None Visual Disturbances: 0-None Headache: 0-None Present CIWA-Ar Total Score: 10
--- NOTE | 2020-03-26 09:17 | HP ---
CIWA Score Nausea/Vomitin-Mild Nausea/No Vomiting Muscle Tremors: 3 Anxiety: 3 Agitation: 3 Paroxysmal Sweats: No Perspiration Orientation: 0-Oriented Tacttile Disturbances: 0-None Auditory Disturbances: 0-None Visual Disturbances: 0-None Headache: 0-None Present CIWA-Ar Total Score: 10 - Admission Criteria OASAS Guidelines: Admission for Medically Managed Detox: Requires at least one of the followin. CIWA greater than 12 2. Seizures within the past 24 hours 3. Delirium tremens within the past 24 hours 4. Hallucinations within the past 24 hours 5. Acute intervention needed for co occurring medical disorder 6. Acute intervention needed for co occurring psychiatric disorder 7. Severe withdrawal that cannot be handled at a lower level of care (continued vomiting, continued diarrhea, abnormal vital signs) requiring intravenous medication and/or fluids 8. Admitting History and Physical - Admission Chief Complaint: Mr. Moise is a 45 yo gentleman who presents to [facility] stating "I need to get my life back", he is requesting a detox admission for alcohol, cocaine, marijuana and PCP use disorder. History of Present Illness: Mr. Moise is a 45 yo gentleman who presents to [facility] stating "I need to get my life back", he is requesting a detox admission for alcohol, cocaine, marijuana and PCP use disorder. he was last here between December 05 and January 03, 2020 for detox and rehab. He relapsed immediately upon discharge. Admitted to [facility] 2-3 days ago:anxiety with fireworks, started on Haldol PMH: HCV untreated, arthritis PSh: none Psych: ADHD, anxiety, PTD, depression: last took Haldol 2 days ago SOC: homeless, [place] or [place], park or streets Legal: on probation: assault - Substance Use History Alcohol Substance amount: 1 quart vodka Frequency of use: Daily Substance route: Oral Date of Last Use: 03/26/20 First drink age 13 No seizure history., Black out last night Eyeopener: yes Cocaine- Powder Substance amount: 1 gram Substance route: Inhalation (ex: sniffing or snorting), Injection (ex: intravenous or skin popping) Date of Last Use: 03/24/20 First use age 23 y Marijuana/Hashish Substance amount: 1 joint Frequency of use: Daily Substance route: Smoking Date of Last Use: 03/25/20 First use age 13 PCP Substance amount: $20-30 Frequency of use: Daily Substance route: Smoking Date of Last Use: 03/25/20 First use age 18 or 19y Meets criteria for admission due to: comorbid/untreated psychiatric, homeless: high risk relapse History Source: Patient Limitations to Obtaining History: No Limitations - Smoking History Smoking history: Current every day smoker Have you smoked in the past 12 months: Yes Aproximately how many cigarettes per day: 20 - Alcohol/Substance Use Hx Alcohol Use: Yes Admission ROS S - HPI Allergies/Adverse Reactions: Allergies Allergy/AdvReac Type Severity Reaction Status Date / Time No Known Allergies Allergy Verified 12/09/19 15:50 Exam Limitations: No Limitations - Ebola screening Have you traveled outside of the country in the last 21 days: No Have you been sick,other than usual withdrawal symptoms: No Do you have a fever: No - Review of Systems Constitutional: No Symptoms Reported EENT: reports: No Symptoms Reported Respiratory: reports: No Symptoms reported Cardiac: reports: No Symptoms Reported GI: reports: Nausea Musculoskeletal: reports: No Symptoms Reported Integumentary: reports: No Symptoms Reported Neuro: reports: Other (left ulnar neuropathy) Endocrine: reports: No Symptoms Reported Hematology: reports: No Symptoms Reported Psychiatric: reports: Anxious Patient History - Patient Medical History Hx Anemia: No Hx Asthma: No Hx Chronic Obstructive Pulmonary Disease (COPD): No Hx Cancer: No Hx Cardiac Disorders: Yes (R bundle branch block) Hx Congestive Heart Failure: No Hx Hypertension: No Hx Hypercholesterolemia: Yes (BUT NORMAL NOW; NO CURRENT MED) Hx Pacemaker: No HX Cerebrovascular Accident: No Hx Seizures: No Hx Dementia: No Hx Diabetes: No Hx Gastrointestinal Disorders: No Hx Liver Disease: No Hx Genitourinary Disorders: No Hx Sexually Transmitted Disorders: No (DENIES) Hx Renal Disease (ESRD): No Hx Thyroid Disease: No Hx Human Immunodeficiency Virus (HIV): No (negative 02/19) Hx Hepatitis C: Yes (no treatment follow up with [facility]) Hx Depression: Yes (AND ANXIETY DUE TO DRUGS) Hx Suicide Attempt: No (DENIES S/I) Hx Bipolar Disorder: No Hx Schizophrenia: No - Patient Surgical History Past Surgical History: No Hx Neurologic Surgery: No Hx Cataract Extraction: No Hx Cardiac Surgery: No Hx Lung Surgery: No Hx Breast Surgery: No Hx Breast Biopsy: No Hx Abdominal Surgery: No Hx Appendectomy: No Hx Cholecystectomy: No Hx Genitourinary Surgery: No Hx Section: No Hx Orthopedic Surgery: No Anesthesia Reaction: No - PPD History Date: 10/10/17 Results: 0 mm - Smoking Cessation Smoking history: Current every day smoker Have you smoked in the past 12 months: Yes Aproximately how many cigarettes per day: 20 Hx Chewing Tobacco Use: No Initiated information on smoking cessation: Yes 'Breaking Loose' booklet given: 03/26/20 Admission Physical Exam [facility] - Physical General Appearance: Yes: Within Normal Limits, Anxious HEENTM: Yes: EOMI, Hearing grossly Normal, Normocephalic, Normal Voice Respiratory: Yes: Lungs Clear, Normal Breath Sounds, No Accessory Muscle Use Neck: Yes: Within Normal Limits, Supple, Trachea in good position Breast: Yes: Breasts Symetrical Cardiology: Yes: Regular Rhythm, Regular Rate, S1, S2 Abdominal: Yes: Non Tender, Soft, Decreased BS, Protuberent Back: Yes: Normal Inspection Musculoskeletal: Yes: Gait Steady Extremities: Yes: Non-Tender, Other (small scab right anterior leg ~1 ") Neurological: Yes: Alert, Normal Mood/Affect, Normal Response Integumentary: Yes: Normal Color, Dry, Warm Lymphatic: Yes: Within Normal Limits - Diagnostic (1) PCP (phencyclidine) abuse Current Visit: Yes Status: Acute (2) Homeless Current Visit: Yes Status: Acute (3) Alcohol dependence with uncomplicated withdrawal Current Visit: Yes Status: Acute (4) Cocaine abuse Current Visit: Yes Status: Acute (5) Cannabis dependence Current Visit: Yes Status: Acute (6) Hepatitis C Current Visit: Yes Status: Chronic Qualifiers: Viral hepatitis chronicity: unspecified (7) Nicotine dependence Current Visit: Yes Status: Acute Qualifiers: Nicotine product type: cigarettes Substance use status: uncomplicated Qualified Code(s): F17.210 - Nicotine dependence, cigarettes, uncomplicated (8) AUDRA (generalized anxiety disorder) Current Visit: Yes Status: Chronic Cleared for Admission [facility] - Detox or Rehab [facility] Level of Care: Medically Managed Detox Regimen/Protocol: Librium Breathalyzer - Breathalyzer Breathalyzer: 0 Urine Drug Screen - Test Device Lot number: [id number] Expiration date: 09/02/21 - Control Is test valid?: Yes - Results Drug screen NEGATIVE: No (PCP) Urine drug screen results: THC-Marijuana, BZO-Benzodiazepines Inpatient Rehab Admission - Rehab Decision to Admit Inpatient rehab admission?: No
[2020-03-26 09:25] VITALS: BMI 30.9
[2020-03-26] MEDS ORDERED: MAGNESIUM HYDROX 2400MG/30ML ORAL SUSPENSION 30 ML CUP PO PRN (09:26)
[2020-03-26] MEDS ORDERED: ONDANSETRON *ODT* 4 MG TABLET SL PRN (09:26)
[2020-03-26] MEDS ORDERED: MENTHOL/PHENOL 1 EACH UD MM PRN (09:26)
[2020-03-26] MEDS ORDERED: MAGNESIUM CITRATE 300 ML BOTTLE PO PRN (09:26)
[2020-03-26] MEDS ORDERED: chlordiazePOXIDE HCL 25 MG CAPSULE PO PRN (09:26)
[2020-03-26] MEDS ORDERED: NICOTINE POLACRILEX 2 MG GUM BUC PRN (09:26)
[2020-03-26] MEDS ORDERED: ACETAMINOPHEN 325 MG TABLET (FP) PO PRN ×2 (09:26)
[2020-03-26] MEDS ORDERED: BISMUTH SUBSALICYLATE 262 MG/15 ML BTL PO PRN (09:26)
[2020-03-26] MEDS ORDERED: hydrOXYzine PAMOATE 25 MG CAPSULE (FP) PO SCH (10:00)
[2020-03-26] MEDS: NICOTINE 21 MG/24 HOURS TOPICAL PATCH TD SCH (10:21)
[2020-03-26] MEDS: chlordiazePOXIDE HCL 25 MG CAPSULE PO SCH ×3 (10:21→23:21)
[2020-03-26] MEDS: PRENATAL VITAMINS W/ FOLIC ACID TABLET (FP) PO SCH (10:22)
[2020-03-26] MEDS ORDERED: hydrOXYzine PAMOATE 25 MG CAPSULE (FP) PO PRN (10:58)
--- NOTE | 2020-03-26 13:20 | CONSULT ---
[facility] Psychiatric Consult - Data Date of interview: 03/26/20 Admission source: Self-referred Identifying data: Mr Thapa is a 45 years old single , father of a 20 years old daughter, unemployed with no source of income, homeless seeking detox treatment for alcohol, cocaine and cannabis Substance Abuse History: Reports history of alcohol, cocaine and marijuana use. Refer to addiction counselor's summary for further information Medical History: Significant for dyslipidemia, hepatitis C and cardiac arrhythmia. Smokes cigarettes 1 ppd Psychiatric History: Patient is known for multiple previous admission to this facility. He reports being diagnosed with ADHD as a child and Anxiety as an adult. Reports multiple previous psychiatric hospitalizations at various facilities including [facility], [facility], [facility] and [facility]. Reports that most recently admission was at [facility] for 3 days because of anxiety and fear of exploding firecrackers. He said he was treated with Haldol, Vistaril and discharged on 03/25/20. Reports non compliance with OPD care and medications. In the past wile admitted to this facility, he has received treatment with Patient reports receiving psychiatric treatment with Adderall Gabapentin, Wellbutrin, Buspar, Prozac, Klonopin. Reports that over the years, he has received medication trials of Wellbutrin, Buspar, Prozac and Klonopin. Denies previous suicidal ideations. At present, reports feeling anxious and sleeping poorly Physical/Sexual Abuse/Trauma History: Denies history of emotional, physical or sexual abuse as well as DV relationship Mental Status Exam - Mental Status Exam Alert and Oriented to: Time, Place, Person Cognitive Function: Fair Patient Appearance: Well Groomed Mood: Anxious Affect: Appropriate Patient Behavior: Cooperative Speech Pattern: Clear Voice Loudness: Normal Thought Process: Intact, Goal Oriented Hallucinations: Denies Suicidal Ideation: Denies Homicidal Ideation: Denies Insight/Judgement: Poor Sleep: Poorly Appetite: Good Muscle strength/Tone: Normal Gait/Station: Normal Psychiatric Findings - Problem List (Sandy 1, 2,3) (1) ADHD (attention deficit hyperactivity disorder) Current Visit: No Status: Chronic (2) Anxiety disorder Current Visit: No Status: Chronic (3) AUDRA (generalized anxiety disorder) Current Visit: Yes Status: Ruled-out (4) PTSD (post-traumatic stress disorder) Current Visit: No Status: Ruled-out (5) Substance-induced anxiety disorder Current Visit: No Status: Acute (6) Substance-induced sleep disorder Current Visit: No Status: Acute (7) Alcohol dependence with uncomplicated withdrawal Current Visit: Yes Status: Acute (8) Opioid dependence with withdrawal Current Visit: No Status: Acute (9) Cocaine dependence Current Visit: Yes Status: Acute (10) Cannabis dependence Current Visit: Yes Status: Acute (11) Phencyclidine dependence Current Visit: Yes Status: Acute (12) Nicotine dependence Current Visit: Yes Status: Chronic Qualifiers: Nicotine product type: cigarettes Substance use status: uncomplicated Qualified Code(s): F17.210 - Nicotine dependence, cigarettes, uncomplicated (13) Hepatitis C Current Visit: Yes Status: Chronic Qualifiers: Viral hepatitis chronicity: unspecified (14) Dyslipidemia Current Visit: No Status: Chronic - Initial Treatment Plan Initial Treatment Plan: 1) Start Vistaril 50 mg po Q 4hrs prn for anxiety and Belsomra 10 mg po HS prn for anxiety. 2) Continue inpatient detoxification
[2020-03-26 14:27] LABS: HEMATOCRIT 49.9 % (35.4-49); HEMOGLOBIN 16.9 GM/dL (11.7-16.9); MCH 29.7 pg (25.7-33.7); MCHC 33.9 g/dl (32.0-35.9); MEAN CELL VOLUME 87.8 fl (80-96); MEAN PLT VOLUME 9.1 fl (7.5-11.1); PLATELET COUNT 191 K/MM3 (134-434); RBC 5.69 M/mm3 (4.00-5.60); RDW 14.2 % (11.9-15.9); WHITE BLOOD COUNT 10.5 K/mm3 (4.0-10.0)
[2020-03-26 14:36] LABS: ALBUMIN 3.9 g/dl (3.4-5.0); BILIRUBIN,TOTAL 1.7 mg/dL (0.2-1); BLOOD UREA NITROGEN 21.6 mg/dL (7-18); CALCIUM 8.9 mg/dL (8.5-10.1); CREATININE 0.9 mg/dL (0.55-1.3); POTASSIUM 3.8 mmol/L (3.5-5.1); TOT PROT 7.1 g/dl (6.4-8.2)
[2020-03-26] MEDS: MELATONIN 5 MG TABLETS PO SCH (23:00)
[2020-03-26] MEDS: THIAMINE HCL 100 MG TABLET (FP) PO SCH (23:00)
[2020-03-27] MEDS: chlordiazePOXIDE HCL 25 MG CAPSULE PO SCH (05:47)
[2020-03-27] MEDS ORDERED: INSULIN (NOVOLOG) ASPART 100 UNITS/ML 10ML VIAL ONE (08:22)
--- NOTE | 2020-03-27 10:19 | PN ---
S CIWA - CIWA Score Nausea/Vomitin-No Nausea/No Vomiting Muscle Tremors: 2 Anxiety: 3 Agitation: 3 Paroxysmal Sweats: 2 Orientation: 0-Oriented Tacttile Disturbances: 0-None Auditory Disturbances: 0-None Visual Disturbances: 0-None Headache: 0-None Present CIWA-Ar Total Score: 10 S Progress Note (SOAP) Subjective: sweats shakes agitation the librium is not working for me..its making me too sleepy and its not the right medication for me Objective: 03/27/20 10:19 Vital Signs Temperature 97.5 F L 03/27/20 09:20 Pulse Rate 74 03/27/20 09:20 Respiratory Rate 18 03/27/20 09:20 Blood Pressure 132/95 03/27/20 09:20 O2 Sat by Pulse Oximetry (%) 98 03/27/20 05:14 Laboratory Tests 03/26/20 03/26/20 03/26/20 09:45 09:45 09:45 WBC 10.5 H RBC 5.69 H Hgb 16.9 Hct 49.9 H MCV 87.8 MCH 29.7 MCHC 33.9 RDW 14.2 Plt Count 191 MPV 9.1 Sodium 140 Potassium 3.8 Chloride 109 H Carbon Dioxide 21 Anion Gap 10 BUN 21.6 H Creatinine 0.9 Est GFR (CKD-EPI)AfAm 119.97 Est GFR (CKD-EPI)NonAf 103.51 Random Glucose 105 Calcium 8.9 Total Bilirubin 1.7 H AST 73 H ALT 199 H Alkaline Phosphatase 60 Total Protein 7.1 Albumin 3.9 Syphilis Serology Non-reactive labs noted elevated ast and alt and bilirubin; will repeat labs aaox3 ambulating no acute distress Assessment: 03/27/20 10:22 withdrawals Plan: continue detox d/c librium started with valium taper increase fluids repeat labs
[2020-03-27] MEDS: NICOTINE 21 MG/24 HOURS TOPICAL PATCH TD SCH (10:43)
[2020-03-27] MEDS: PRENATAL VITAMINS W/ FOLIC ACID TABLET (FP) PO SCH (10:43)
[2020-03-27] MEDS: hydrOXYzine PAMOATE 50 MG CAPSULE (FP) PO PRN ×3 (10:47→22:31)
[2020-03-27] MEDS: diazePAM 5 MG TABLET PO SCH ×2 (13:04→22:32)
[2020-03-27] MEDS: IBUPROFEN 400 MG TABLET (FP) PO PRN (13:37)
[2020-03-27] MEDS: METHOCARBAMOL 500 MG TABLET PO PRN ×2 (13:37→22:33)
[2020-03-27] MEDS: diazePAM 5 MG TABLET PO PRN ×3 (13:38→22:30)
[2020-03-27] MEDS: THIAMINE HCL 100 MG TABLET (FP) PO SCH (22:30)
[2020-03-27] MEDS: MELATONIN 5 MG TABLETS PO SCH (22:31)
[2020-03-27] MEDS: SUVOREXANT 10 MG TABLET PO PRN (22:31)
[2020-03-27] MEDS: MAG HYDROX/AL HYDROX/SIMETH 30 ML UNIT-DOSE CUP PO PRN (22:34)
[2020-03-28] MEDS ORDERED: chlordiazePOXIDE HCL 25 MG CAPSULE PO SCH (05:00)
[2020-03-28] MEDS: diazePAM 5 MG TABLET PO PRN ×4 (05:52→19:27)
[2020-03-28] MEDS: diazePAM 5 MG TABLET PO SCH ×3 (07:19→22:13)
[2020-03-28] MEDS: NICOTINE 21 MG/24 HOURS TOPICAL PATCH TD SCH (10:24)
[2020-03-28] MEDS: PRENATAL VITAMINS W/ FOLIC ACID TABLET (FP) PO SCH (10:25)
[2020-03-28] MEDS: hydrOXYzine PAMOATE 50 MG CAPSULE (FP) PO PRN ×2 (10:27→22:13)
[2020-03-28] MEDS: IBUPROFEN 400 MG TABLET (FP) PO PRN ×2 (10:27→19:27)
[2020-03-28] MEDS: METHOCARBAMOL 500 MG TABLET PO PRN ×2 (10:27→19:27)
[2020-03-28 10:45] LABS: BASO % 0.5 % (0-2.0); EOS % 1.9 % (0-4.5); HEMATOCRIT 48.9 % (35.4-49); HEMOGLOBIN 16.7 GM/dL (11.7-16.9); LYMPH % 43.7 % (8-40); MCH 29.8 pg (25.7-33.7); MCHC 34.1 g/dl (32.0-35.9); MEAN CELL VOLUME 87.3 fl (80-96); MEAN PLT VOLUME 9.2 fl (7.5-11.1); MONO % 10.4 % (3.8-10.2); NEUT % 43.5 % (42.8-82.8); PLATELET COUNT 172 K/MM3 (134-434); RDW 14.1 % (11.9-15.9); WHITE BLOOD COUNT 7.8 K/mm3 (4.0-10.0)
[2020-03-28 10:59] LABS: ALBUMIN 3.6 g/dl (3.4-5.0); BILIRUBIN,TOTAL 0.5 mg/dL (0.2-1); BLOOD UREA NITROGEN 14.1 mg/dL (7-18); CREATININE 0.8 mg/dL (0.55-1.3); POTASSIUM 4.2 mmol/L (3.5-5.1); TOT PROT 6.8 g/dl (6.4-8.2)
--- NOTE | 2020-03-28 11:54 | PN ---
[facility] CIWA - CIWA Score Nausea/Vomitin-No Nausea/No Vomiting Muscle Tremors: 3 Anxiety: 2 Agitation: 2 Paroxysmal Sweats: 1-Minimal Palms Moist Orientation: 0-Oriented Tacttile Disturbances: 0-None Auditory Disturbances: 0-None Visual Disturbances: 0-None Headache: 0-None Present CIWA-Ar Total Score: 8 B[facility] Progress Note (SOAP) Subjective: sweats little shakes body aches otherwise feeling better Objective: 03/28/20 11:53 Vital Signs Temperature 97.8 F 03/28/20 08:59 Pulse Rate 75 03/28/20 08:59 Respiratory Rate 18 03/28/20 08:59 Blood Pressure 128/95 03/28/20 08:59 O2 Sat by Pulse Oximetry (%) 97 03/28/20 05:37 Laboratory Tests 03/26/20 03/26/20 03/26/20 09:45 09:45 09:45 WBC 10.5 H RBC 5.69 H Hgb 16.9 Hct 49.9 H MCV 87.8 MCH 29.7 MCHC 33.9 RDW 14.2 Plt Count 191 MPV 9.1 Absolute Neuts (auto) Neutrophils % Lymphocytes % Monocytes % Eosinophils % Basophils % Nucleated RBC % Sodium 140 Potassium 3.8 Chloride 109 H Carbon Dioxide 21 Anion Gap 10 BUN 21.6 H Creatinine 0.9 Est GFR (CKD-EPI)AfAm 119.97 Est GFR (CKD-EPI)NonAf 103.51 Random Glucose 105 Calcium 8.9 Total Bilirubin 1.7 H AST 73 H ALT 199 H Alkaline Phosphatase 60 Total Protein 7.1 Albumin 3.9 Syphilis Serology Non-reactive COVID-19 (LAURA) 03/26/20 03/28/20 03/28/20 09:45 08:00 08:00 WBC 7.8 RBC 5.60 Hgb 16.7 Hct 48.9 MCV 87.3 MCH 29.8 MCHC 34.1 RDW 14.1 Plt Count 172 MPV 9.2 Absolute Neuts (auto) 3.4 Neutrophils % 43.5 Lymphocytes % 43.7 H D Monocytes % 10.4 H Eosinophils % 1.9 Basophils % 0.5 Nucleated RBC % 0 Sodium 137 Potassium 4.2 Chloride 106 Carbon Dioxide 24 Anion Gap 7 L BUN 14.1 Creatinine 0.8 Est GFR (CKD-EPI)AfAm 125.92 Est GFR (CKD-EPI)NonAf 108.65 Random Glucose 102 Calcium 9.0 Total Bilirubin 0.5 AST 50 H ALT 145 H Alkaline Phosphatase 57 Total Protein 6.8 Albumin 3.6 Syphilis Serology COVID-19 (LAURA) Not detected repeated labs noted aaox3 ambulating no acute distress Assessment: 03/28/20 11:54 withdrawal sx Plan: continue detox increase fluids
[2020-03-28] MEDS: THIAMINE HCL 100 MG TABLET (FP) PO SCH (22:13)
[2020-03-28] MEDS: SUVOREXANT 10 MG TABLET PO PRN (22:13)
[2020-03-28] MEDS: MELATONIN 5 MG TABLETS PO SCH (22:20)
[2020-03-29] MEDS ORDERED: chlordiazePOXIDE HCL 10 MG CAPSULE PO PRN
[2020-03-29] MEDS: diazePAM 5 MG TABLET PO PRN ×6 (00:35→23:26)
[2020-03-29] MEDS: METHOCARBAMOL 500 MG TABLET PO PRN ×4 (00:41→23:26)
[2020-03-29] MEDS: MAG HYDROX/AL HYDROX/SIMETH 30 ML UNIT-DOSE CUP PO PRN (00:42)
[2020-03-29] MEDS ORDERED: chlordiazePOXIDE HCL 10 MG CAPSULE PO SCH (05:00)
[2020-03-29] MEDS: IBUPROFEN 400 MG TABLET (FP) PO PRN ×2 (05:46→12:58)
[2020-03-29] MEDS: diazePAM 5 MG TABLET PO SCH ×2 (06:15→19:09)
--- NOTE | 2020-03-29 10:40 | PN ---
S CIWA - CIWA Score Nausea/Vomitin-No Nausea/No Vomiting Muscle Tremors: 2 Anxiety: 1-Mildly Anxious Agitation: 1-Slight > Activity Paroxysmal Sweats: No Perspiration Orientation: 0-Oriented Tacttile Disturbances: 0-None Auditory Disturbances: 0-None Visual Disturbances: 0-None Headache: 0-None Present CIWA-Ar Total Score: 4 B[facility] Progress Note (SOAP) Subjective: sweats anxiety Objective: 03/29/20 10:39 Vital Signs Temperature 97.3 F L 03/29/20 08:32 Pulse Rate 74 03/29/20 08:32 Respiratory Rate 17 03/29/20 08:32 Blood Pressure 119/74 03/29/20 08:32 O2 Sat by Pulse Oximetry (%) 97 03/29/20 06:32 aaox3 ambulating no acute distress Assessment: 03/29/20 10:39 mild withdrawal sx Plan: continue detox d/c in am
[2020-03-29] MEDS: PRENATAL VITAMINS W/ FOLIC ACID TABLET (FP) PO SCH (10:43)
[2020-03-29] MEDS: NICOTINE 21 MG/24 HOURS TOPICAL PATCH TD SCH (10:43)
[2020-03-29] MEDS: SUVOREXANT 10 MG TABLET PO PRN (21:55)
[2020-03-29] MEDS: THIAMINE HCL 100 MG TABLET (FP) PO SCH (22:36)
[2020-03-29] MEDS: MELATONIN 5 MG TABLETS PO SCH (23:24)
[2020-03-30] MEDS ORDERED: chlordiazePOXIDE HCL 10 MG CAPSULE PO SCH (05:00)
[2020-03-30] MEDS ORDERED: diazePAM 5 MG TABLET PO ONE (06:00)
[2020-03-30] MEDS: PRENATAL VITAMINS W/ FOLIC ACID TABLET (FP) PO SCH (10:30)
[2020-03-30] MEDS: NICOTINE 21 MG/24 HOURS TOPICAL PATCH TD SCH (10:30)
[2020-03-30] MEDS: IBUPROFEN 400 MG TABLET (FP) PO PRN (12:52)
[2020-03-30] MEDS: METHOCARBAMOL 500 MG TABLET PO PRN ×2 (12:52→18:34)
[2020-03-30] MEDS: hydrOXYzine PAMOATE 50 MG CAPSULE (FP) PO PRN ×2 (12:52→18:34)
--- NOTE | 2020-03-30 16:59 | PN ---
S CIWA - CIWA Score Nausea/Vomitin-No Nausea/No Vomiting Muscle Tremors: None Anxiety: 5 Agitation: 0-Normal Activity Paroxysmal Sweats: No Perspiration Orientation: 0-Oriented Tacttile Disturbances: 0-None Auditory Disturbances: 0-None Visual Disturbances: 0-None Headache: 0-None Present CIWA-Ar Total Score: 5 B[facility] Progress Note (SOAP) Subjective: Anxious. Objective: Patient A & O X 3; In No Acute Distress. 03/30/20 16:52 Vital Signs Temperature 97.5 F L 03/30/20 12:45 Pulse Rate 81 03/30/20 12:45 Respiratory Rate 20 03/30/20 12:45 Blood Pressure 117/78 03/30/20 12:45 O2 Sat by Pulse Oximetry (%) 98 03/30/20 12:45 Laboratory Tests 03/26/20 03/26/20 03/26/20 09:45 09:45 09:45 WBC 10.5 H RBC 5.69 H Hgb 16.9 Hct 49.9 H MCV 87.8 MCH 29.7 MCHC 33.9 RDW 14.2 Plt Count 191 MPV 9.1 Absolute Neuts (auto) Neutrophils % Lymphocytes % Monocytes % Eosinophils % Basophils % Nucleated RBC % Sodium 140 Potassium 3.8 Chloride 109 H Carbon Dioxide 21 Anion Gap 10 BUN 21.6 H Creatinine 0.9 Est GFR (CKD-EPI)AfAm 119.97 Est GFR (CKD-EPI)NonAf 103.51 Random Glucose 105 Calcium 8.9 Total Bilirubin 1.7 H AST 73 H ALT 199 H Alkaline Phosphatase 60 Total Protein 7.1 Albumin 3.9 Syphilis Serology Non-reactive COVID-19 (LAURA) 03/26/20 03/28/20 03/28/20 09:45 08:00 08:00 WBC 7.8 RBC 5.60 Hgb 16.7 Hct 48.9 MCV 87.3 MCH 29.8 MCHC 34.1 RDW 14.1 Plt Count 172 MPV 9.2 Absolute Neuts (auto) 3.4 Neutrophils % 43.5 Lymphocytes % 43.7 H D Monocytes % 10.4 H Eosinophils % 1.9 Basophils % 0.5 Nucleated RBC % 0 Sodium 137 Potassium 4.2 Chloride 106 Carbon Dioxide 24 Anion Gap 7 L BUN 14.1 Creatinine 0.8 Est GFR (CKD-EPI)AfAm 125.92 Est GFR (CKD-EPI)NonAf 108.65 Random Glucose 102 Calcium 9.0 Total Bilirubin 0.5 AST 50 H ALT 145 H Alkaline Phosphatase 57 Total Protein 6.8 Albumin 3.6 Syphilis Serology COVID-19 (LAURA) Not detected Lab Results noted. Assessment: 03/30/20 16:53 WITHDRAWAL SYMPTOMS. ELEVATED AST LEVEL. ELEVATED ALT LEVEL. 03/30/20 16:59 Plan: Continue Detox. Patient initially schedule for Discharge from Detox unit today. However, according to Patient, he reprots that he believes that his scheduled Discharge date is tomorrow, 03/31/2020 and that he is scheduled to be picked up to be taken to [facility] ([place], [place]) at that time. Due to concern about possibility of relapse, Patient to remain on Detox Unit until tomorrow AM, at which time he will be picked up to be taken to [facility]. [employer] Anneliese Pelayo consulted on this matter and in agreement regarding extension of Discharge date.
[2020-03-30] MEDS: THIAMINE HCL 100 MG TABLET (FP) PO SCH (23:00)
[2020-03-30] MEDS: MELATONIN 5 MG TABLETS PO SCH (23:00)
[2020-03-31] MEDS ORDERED: chlordiazePOXIDE HCL 10 MG CAPSULE PO ONE (05:00)
[2020-03-31 06:10] VITALS: BP 142/88; PULSE 68; TEMP 98.2
--- NOTE | 2020-03-31 17:12 | DS ---
[facility] Detox Discharge Summary Admission Date: 03/26/20 Discharge Date: 03/31/20 - History Present History: Alcohol Dependence, Cannabis Dependence, Cocaine Dependence, Pcp Dependence Additional Comments: Patient completed detox successfully, discharged safely in stable condition. Instructed to follow up with PCP within 1-2 weeks. Pertinent Past History: RBBB HCV Polysubstance use: (cocaine, THC, ETOH, PCP) Nicotine dependence - Physical Exam Results Vital Signs: Vital Signs Temperature 98.2 F 03/31/20 05:29 Pulse Rate 68 03/31/20 05:29 Respiratory Rate 16 03/31/20 05:29 Blood Pressure 142/88 03/31/20 05:29 O2 Sat by Pulse Oximetry (%) 98 03/31/20 05:29 Elevated b/p noted, denies htn; could be r/t anxiety, follow up with PCP for monitoring Pertinent Admission Physical Exam Findings: Withdrawal sxs Laboratory Tests 03/26/20 03/26/20 03/26/20 09:45 09:45 09:45 WBC 10.5 H RBC 5.69 H Hgb 16.9 Hct 49.9 H MCV 87.8 MCH 29.7 MCHC 33.9 RDW 14.2 Plt Count 191 MPV 9.1 Absolute Neuts (auto) Neutrophils % Lymphocytes % Monocytes % Eosinophils % Basophils % Nucleated RBC % Sodium 140 Potassium 3.8 Chloride 109 H Carbon Dioxide 21 Anion Gap 10 BUN 21.6 H Creatinine 0.9 Est GFR (CKD-EPI)AfAm 119.97 Est GFR (CKD-EPI)NonAf 103.51 Random Glucose 105 Calcium 8.9 Total Bilirubin 1.7 H AST 73 H ALT 199 H Alkaline Phosphatase 60 Total Protein 7.1 Albumin 3.9 Syphilis Serology Non-reactive COVID-19 (LAURA) 03/26/20 03/28/20 03/28/20 09:45 08:00 08:00 WBC 7.8 RBC 5.60 Hgb 16.7 Hct 48.9 MCV 87.3 MCH 29.8 MCHC 34.1 RDW 14.1 Plt Count 172 MPV 9.2 Absolute Neuts (auto) 3.4 Neutrophils % 43.5 Lymphocytes % 43.7 H D Monocytes % 10.4 H Eosinophils % 1.9 Basophils % 0.5 Nucleated RBC % 0 Sodium 137 Potassium 4.2 Chloride 106 Carbon Dioxide 24 Anion Gap 7 L BUN 14.1 Creatinine 0.8 Est GFR (CKD-EPI)AfAm 125.92 Est GFR (CKD-EPI)NonAf 108.65 Random Glucose 102 Calcium 9.0 Total Bilirubin 0.5 AST 50 H ALT 145 H Alkaline Phosphatase 57 Total Protein 6.8 Albumin 3.6 Syphilis Serology COVID-19 (LAURA) Not detected Labs reviewed: noted elevated LFTs (trending downward, most likely due to substance use and HCV); follow up with PCP for monitoring - Treatment Hospital Course: Detox Protocol Followed, Detoxed Safely, Responded well, Discharged Condition Good - Medication Discharge Medications: Ambulatory Orders traZODone HCL [Desyrel -] 100 mg PO HS #30 tablet 07/12/19 Citalopram Hydrobromide [Citalopram HBr] 10 mg PO DAILY 12/06/19 Duloxetine HCl 30 mg PO BID 12/06/19 Gabapentin Enacarbil [Horizant] 300 mg PO HS 12/06/19 - Diagnosis (1) Alcohol dependence with uncomplicated withdrawal Status: Acute (2) Cannabis dependence Status: Chronic (3) Cocaine dependence Status: Chronic (4) Elevated liver enzymes Status: Acute (5) PCP (phencyclidine) abuse Status: Chronic (6) Cocaine dependence, uncomplicated Status: Chronic (7) Hepatitis C Status: Chronic Qualifiers: Viral hepatitis chronicity: unspecified (8) Nicotine dependence Status: Chronic Qualifiers: Nicotine product type: cigarettes (9) Right bundle branch block Status: Chronic (10) Elevated blood-pressure reading, without diagnosis of hypertension Status: Acute - AMA Did Patient Leave Against Medical Advice: No (Follow up with PCP within 1 week)
== END 2020-03-31 08:39 | disposition home or self-care (01) | DRG 774 ==
LOC: YASAS 08:08 → Y6N 09:38
PROVIDERS: ADMIT Allergy & Immunology; ATTEND Allergy & Immunology
PROC: HZ2ZZZZ Detoxification Services for Substance Abuse Treatment (ICD-10-PCS; principal; 2020-03-26)
DX: F10.230 Alcohol dependence with withdrawal, uncomplicated (principal); F14.20 Cocaine dependence, uncomplicated; F12.20 Cannabis dependence, uncomplicated; F16.10 Hallucinogen abuse, uncomplicated; F17.210 Nicotine dependence, cigarettes, uncomplicated; F90.9 Attention-deficit hyperactivity disorder, unspecified type; F19.280 Other psychoactive substance dependence with psychoactive substance-induced anxiety disorder; F19.282 Other psychoactive substance dependence with psychoactive substance-induced sleep disorder; R94.5 Abnormal results of liver function studies; R03.0 Elevated blood-pressure reading, without diagnosis of hypertension; R74.0 Nonspecific elevation of levels of transaminase and lactic acid dehydrogenase [LDH]; I45.10 Unspecified right bundle-branch block; B18.2 Chronic viral hepatitis C; Z59.0 Homelessness
CPT/HCPCS: 36415; 80053; 85025; 85027; 86780; U0003